=== PATIENT | female | born 1940 | race Caucasian/White ===

== ENCOUNTER 2017-12-03 18:31 | Emergency (ER) | payer MEDICARE, SELFPAY ==
[2017-12-03] VITALS (10 sets, daily range): BP systolic 118–166; BP diastolic 60–72; PULSE 80–86; RESP 18–25; TEMP 37.6; O2SAT 93–99
--- NOTE | 2017-12-03 18:58 | DI.RAD.S_ITS ---
PROCEDURE: XR CHEST 2V INDICATIONS: Shortness of breath, cough TECHNIQUE: 2 views of the chest were acquired. COMPARISON: None. FINDINGS: Surgical changes and devices: None. Lungs and pleura: No pleural effusions or pneumothorax. Mildly increased local vascular markings and bilateral hilar region is seen which may indicate mild reactive airway disease such as bronchitis or asthma. No definite focal infiltrate. Mediastinum: Mediastinal contours are normal. Heart size is normal. Bones and chest wall: No suspicious bony abnormalities. Soft tissues appear unremarkable. IMPRESSION: Suggestion of mild reactive airway disease such as bronchitis or asthma. No definite focal infiltrate. Dictated by: Cm Albert M.D. on 12/03/2017 at 19:22 Approved by: Cm Albert M.D. on 12/03/2017 at 19:22
[2017-12-03 19:28] LABS: Add Manual Diff / Slide Review NO; Basophils Percent Auto 0.6 % (0-2); Eosinophils Percent Auto 3.6 % (2-4); Hematocrit 40.5 % (36-46); Hemoglobin 13.6 g/dL (12.0-16.0); Lymphocytes Percent Auto 18.3 % (25-40); Mean Corpuscular HGB Conc 33.6 % (30-36); Mean Corpuscular Hemoglobin 30.6 PG (26-34); Mean Corpuscular Volume 91.3 fL (80-100); Monocytes Percent Auto 9.3 % (3-14); Neutrophils Absolute Auto 6400 /uL (3000-5900); Neutrophils Percent Auto 68.2 % (50-75); Platelet Count 236 X10^3/uL (150-400); Red Blood Cell Count 4.43 X10^6/uL (4.0-5.2); Red Cell Distribution Width 13.1 % (11.6-14.8); White Blood Cell Count 9.4 X10^3/uL (4.5-11.0)
[2017-12-03] MEDS: methylPREDNISolone 125 MG/2 ML VIAL IV (19:29)
[2017-12-03] MEDS: SODIUM CHLORIDE 0.9% 1,000 ML 150 ML IV (19:30)
[2017-12-03] MEDS: ALBUTEROL/IPRATROPIUM 3 ML AMPUL INH (19:34)
--- NOTE | 2017-12-03 19:36 | ED_ITS ---
HPI - SOB/Dyspnea General Chief Complaint: Shortness of Breath/Dyspnea Stated Complaint: HARD TIME BREATHING THROAT HURTS EAR PAIN Time Seen by Provider: 12/03/17 18:48 Source: patient and family Mode of arrival: ambulatory Limitations: no limitations History of Present Illness 77-year-old female with a history of hypertension and type 2 diabetes presents to the emergency department with her in the chief complaint of a few days of worsening shortness of breath. She denies any history of lung trouble but states that over the past few days she has had increasing wheezing and cough which is occasionally productive of sputum. She is more short of breath with conversation and certainly with any exertion. She denies fever or chills but generally does not feel great. She has had no nausea, vomiting or diarrhea. Patient was seen and evaluated at the walk-in clinic and showed some signs of improvement with bronchodilators MD Complaint: shortness of breath and cough Onset (ago): day(s) Severity: moderate Consistency/Duration: constant Relieving factors: rest Exacerbating factors: exertion, movement, coughing and smoke Associated symptoms: denies other symptoms Treatment prior to arrival: none Related Data Home oxygen amount: none Home Medications Medication Instructions Recorded Confirmed amlodipine 2.5 mg tablet 2.5 mg PO DAILY 12/03/17 12/03/17 hydrochlorothiazide 12.5 mg tablet 12.5 mg PO DAILY 12/03/17 12/03/17 liraglutide 0.6 mg/0.1 mL (18 mg/3 0.6 mg SUBCUT DAILY 12/03/17 12/03/17 mL) subcutaneous pen injector losartan 25 mg tablet 25 mg PO DAILY 12/03/17 12/03/17 metformin 500 mg tablet 500 mg PO BID 12/03/17 12/03/17 Previous Rx's Medication Instructions Recorded azithromycin See Label Instructions .ROUTE 12/03/17 .COMPLEX #3 tab prednisone 20 mg PO BID 4 Days #8 tab 12/03/17 Allergies Allergy/AdvReac Type Severity Reaction Status Date / Time Opioids - Morphine Analogues Allergy Verified 12/03/17 18:44 Review of Systems Review of Systems All systems reviewed & are unremarkable except as noted in HPI and below Constitutional Denies chills, Reports fever(s), Denies lethargy and Denies weakness Eyes Denies change in vision, Denies eye discharge, Denies irritation and Denies loss of vision ENT Ears, Nose, Mouth, and Throat: Denies change in voice, Denies neck pain and Denies sore throat Cardiovascular Denies chest pain, Denies irregular heart rhythm, Denies lightheadedness, Denies palpitations, Reports dyspnea, Reports dyspnea on exertion and Denies orthopnea Respiratory Reports cough, Reports dyspnea, Reports dyspnea on exertion and Reports wheezing Gastrointestinal Gastrointestinal: Denies abdominal pain, Denies change in bowel habits, Denies diarrhea, Denies nausea and Denies vomiting Genitourinary Denies hematuria, Denies flank pain, Denies urinary incontinence and Denies urinary urgency Musculoskeletal Denies neck pain Integumentary/Breasts Denies pruritus, Denies erythema, Denies rash and Denies wounds Neurologic Denies confusion, Denies loss of vision and Denies weakness Psychiatric Denies anxiety, Denies confusion, Denies depression, Denies homicidal ideation and Denies suicidal ideation Endocrine Denies palpitations Hematologic/Lymphatic Denies easy bruising Allergic/Immunologic Reports wheezing [facility] Social History Smoking Status: Never smoker alcohol intake: never Exam Narrative Exam Narrative: 77-year-old female is in distress and demonstrates increasing shortness of breath with conversation or exertion Initial Vital Signs Initial Vital Signs: Vital Signs Temperature 99.7 F H 12/03/17 18:40 Pulse Rate 86 12/03/17 18:40 Respiratory Rate 22 12/03/17 18:40 Blood Pressure 135/72 H 12/03/17 18:40 Pulse Oximetry 97 12/03/17 18:40 Const General: cooperative, well developed and acute distress Nutritional Appearance: well nourished Orientation: alert, awake, oriented x3 and not confused [facility] Head: normocephalic and atraumatic Ears: external ears normal and TM's normal bilaterally Nose: external nose normal and No nasal discharge Face and sinus: sinuses nontender, face symmetric, no sinus tenderness and No dry mucous membranes Mouth: oral mucosae normal and moist mucous membranes Teeth and gingiva: dentition normal Throat: tonsils normal and uvula midline Eyes General: appearance normal, both eyes and all related structures Eyelids: eyelids normal Conjunctivae: conjunctivae normal Sclera: sclerae normal Pupils: PERRL EOM: EOM intact bilaterally Neck Neck: normal visual inspection, trachea midline, No lymphadenopathy, No midline deformity and No JVD Lymphatic: No lymphedema Chest Chest: normal inspection of the chest Resp Effort & Inspection: audible wheezes, respiratory distress, no use of accessory muscles and prolonged expiratory phase Auscultation: no rales, no rhonchi and wheezes Cardio Rate: regular rate Rhythm: regular rhythm Heart Sounds: no click, no gallops, no murmurs and no rubs Pulses: normal peripheral pulses GI Inspection: non-distended Palpation: soft, no hepatosplenomegaly, No guarding, No pulsatile mass and No tender Auscultation: normal bowel sounds Back/Spine/Pelvis Back: No CVA tenderness Cervical Spine: cervical ROM normal and No pain with cervical ROM Thoracic/Lumbar Spine: thoracic and lumbar spine normal to inspection Skin General: no rashes or lesions noted, No jaundice and No petechiae Neuro General: alert, oriented x3, gait normal and no focal motor deficits Speech: speech normal Extrem General: full ROM, no clubbing, cyanosis or edema, no pedal edema and no calf tenderness Psych Appearance: well kempt Mental Status: mental status grossly normal Attitude: cooperative Thought Content: normal and suicidality Judgment: judgment good Course Orders Ordered: Discontinued Medications Albuterol (Ventolin Hfa Prepack) 1 box MISC SEEINSTR ONE Stop: 12/03/17 22:25 Last Admin: 12/03/17 22:41 Dose: 1 box Albuterol/Ipratropium (Duoneb) 3 ml INH NOW ONE Stop: 12/03/17 18:56 Last Admin: 12/03/17 19:34 Dose: 3 ml Azithromycin (Zithromax) 500 mg PO NOW ONE Stop: 12/03/17 22:25 Last Admin: 12/03/17 22:37 Dose: 500 mg Sodium Chloride (Normal Saline 0.9%) 1,000 mls @ 150 mls/hr IV CONT GUILLERMINA Last Infusion: 12/03/17 22:32 Dose: 0 mls/hr Admin: 12/03/17 19:30 Dose: 150 mls/hr Methylprednisolone (Solu-Medrol 125 Mg Vial) 125 mg IV NOW ONE Stop: 12/03/17 18:56 Last Admin: 12/03/17 19:29 Dose: 125 mg Reevaluation(s) Reevaluation #1: Patient shows tremendous improvement with bronchodilators and steroids. In the and the patient is no longer hypoxic even on room air and is able to to and ambulation trial while maintaining a pulse ox 96% Vital Signs - 8 hr 12/03/17 22:50 12/03/17 23:00 12/03/17 23:05 Pulse Rate 83 83 Respiratory Rate 19 19 Blood Pressure 119/60 Blood Pressure [Left Arm] 119/60 Pulse Oximetry 95 96 96 MDM - SOB/Dyspnea Differential Diagnosis Likely acute exacerbation of chronic obstructive airways disease, congestive heart failure, community acquired pneumonia, asthma with exacerbation and pulmonary embolism Medical Records Attestation: I reviewed the patient's medical records. Lab Data Attestation: I reviewed the patient's lab results. Result diagrams: 12/03/17 19:18 12/03/17 19:18 Lab Results 12/03/17 12/03/17 12/03/17 Range/Units 19:18 19:18 19:18 WBC 9.4 (4.5-11.0) X10^3/uL RBC 4.43 (4.0-5.2) X10^6/uL Hgb 13.6 (12.0-16.0) g/dL Hct 40.5 (36-46) % MCV 91.3 (80-100) fL MCH 30.6 (26-34) PG MCHC 33.6 (30-36) % RDW 13.1 (11.6-14.8) % Plt Count 236 (150-400) X10^3/uL Neut % (Auto) 68.2 (50-75) % Lymph % (Auto) 18.3 L (25-40) % [place] % (Auto) 9.3 (3-14) % Eos % (Auto) 3.6 (2-4) % Baso % (Auto) 0.6 (0-2) % Neut # (Auto) 6400 H (9956-6551) /uL ABG pH (7.35-7.45) ABG pCO2 (35-45) mmHg ABG pO2 (80-105) mmHg ABG HCO3 (23-27) mmol/L ABG Total CO2 (23-27) mmol/L ABG O2 Saturation (95-100) % ABG Base Excess (-2-3) mmol/L Cord ABG pH (7.18-7.38) Cord ABG pCO2 (33-66) Cord ABG pO2 (6-30) Cord ABG HCO3 Cord ABG Base Excess (-9.0-1.8) Cord ABG O2 Sat Cord VBG pH (7.25-7.45) Cord VBG pCO2 (27-49) Cord VBG pO2 (17-49) Cord VBG HCO3 Cord VBG Base Excess (-7.7-1.9) Cord VBG O2 Sat FiO2 Sodium 142 (137-145) mmol/L Potassium 3.4 (3.4-5.1) mmol/L Chloride 101 (98-107) mmol/L Carbon Dioxide 27 (22-32) mmol/L BUN 29 H (7-17) mg/dL Creatinine 1.00 (0.52-1.04) mg/dL Estimated GFR 54.1 L (>60) mL/min BUN/Creatinine Ratio 29.0 H (6-22) Glucose 177 H (80-110) mg/dL Lactate (0.7-2.1) mmol/L Calcium 9.5 (8.4-10.2) mg/dL Magnesium 1.9 (1.6-2.3) mg/dL Total Creatine Kinase 94 (30-135) U/L Troponin I < 0.012 (0.01-0.034) ng/mL B-Natriuretic Peptide < 100.0 (<100) Procalcitonin < 0.05 (<0.5) ng/mL 12/03/17 12/03/17 12/03/17 Range/Units 19:18 20:20 20:25 WBC (4.5-11.0) X10^3/uL RBC (4.0-5.2) X10^6/uL Hgb (12.0-16.0) g/dL Hct (36-46) % MCV (80-100) fL MCH (26-34) PG MCHC (30-36) % RDW (11.6-14.8) % Plt Count (150-400) X10^3/uL Neut % (Auto) (50-75) % Lymph % (Auto) (25-40) % [place] % (Auto) (3-14) % Eos % (Auto) (2-4) % Baso % (Auto) (0-2) % Neut # (Auto) (8327-2965) /uL ABG pH (7.35-7.45) ABG pCO2 (35-45) mmHg ABG pO2 (80-105) mmHg ABG HCO3 (23-27) mmol/L ABG Total CO2 (23-27) mmol/L ABG O2 Saturation (95-100) % ABG Base Excess (-2-3) mmol/L Cord ABG pH 7.231 (7.18-7.38) Cord ABG pCO2 52.3 (33-66) Cord ABG pO2 8 (6-30) Cord ABG HCO3 21.9 Cord ABG Base Excess -6 (-9.0-1.8) Cord ABG O2 Sat 6 Cord VBG pH 7.344 (7.25-7.45) Cord VBG pCO2 36.6 (27-49) Cord VBG pO2 25 (17-49) Cord VBG HCO3 19.9 Cord VBG Base Excess -6 (-7.7-1.9) Cord VBG O2 Sat 43 FiO2 Sodium (137-145) mmol/L Potassium (3.4-5.1) mmol/L Chloride (98-107) mmol/L Carbon Dioxide (22-32) mmol/L BUN (7-17) mg/dL Creatinine (0.52-1.04) mg/dL Estimated GFR (>60) mL/min BUN/Creatinine Ratio (6-22) Glucose (80-110) mg/dL Lactate 1.7 (0.7-2.1) mmol/L Calcium (8.4-10.2) mg/dL Magnesium (1.6-2.3) mg/dL Total Creatine Kinase (30-135) U/L Troponin I (0.01-0.034) ng/mL B-Natriuretic Peptide (<100) Procalcitonin (<0.5) ng/mL 12/03/17 Range/Units 21:00 WBC (4.5-11.0) X10^3/uL RBC (4.0-5.2) X10^6/uL Hgb (12.0-16.0) g/dL Hct (36-46) % MCV (80-100) fL MCH (26-34) PG MCHC (30-36) % RDW (11.6-14.8) % Plt Count (150-400) X10^3/uL Neut % (Auto) (50-75) % Lymph % (Auto) (25-40) % [place] % (Auto) (3-14) % Eos % (Auto) (2-4) % Baso % (Auto) (0-2) % Neut # (Auto) (4216-6594) /uL ABG pH 7.49 H (7.35-7.45) ABG pCO2 31.9 L (35-45) mmHg ABG pO2 67 L (80-105) mmHg ABG HCO3 24 (23-27) mmol/L ABG Total CO2 25 (23-27) mmol/L ABG O2 Saturation 95 (95-100) % ABG Base Excess 1.0 (-2-3) mmol/L Cord ABG pH (7.18-7.38) Cord ABG pCO2 (33-66) Cord ABG pO2 (6-30) Cord ABG HCO3 Cord ABG Base Excess (-9.0-1.8) Cord ABG O2 Sat Cord VBG pH (7.25-7.45) Cord VBG pCO2 (27-49) Cord VBG pO2 (17-49) Cord VBG HCO3 Cord VBG Base Excess (-7.7-1.9) Cord VBG O2 Sat FiO2 0.21 Sodium (137-145) mmol/L Potassium (3.4-5.1) mmol/L Chloride (98-107) mmol/L Carbon Dioxide (22-32) mmol/L BUN (7-17) mg/dL Creatinine (0.52-1.04) mg/dL Estimated GFR (>60) mL/min BUN/Creatinine Ratio (6-22) Glucose (80-110) mg/dL Lactate (0.7-2.1) mmol/L Calcium (8.4-10.2) mg/dL Magnesium (1.6-2.3) mg/dL Total Creatine Kinase (30-135) U/L Troponin I (0.01-0.034) ng/mL B-Natriuretic Peptide (<100) Procalcitonin (<0.5) ng/mL Imaging Data CT scan - chest: Radiologist's impression: PROCEDURE: CT ANGIO CHEST PE PROTOCOL INDICATIONS: hypoxic, tachycardia TECHNIQUE: After the administration of intravenous contrast, 2 mm thick sections acquired from the pulmonary apices to the posterior costophrenic angles. 3-dimensional maximum intensity projection (MIP) coronal and sagittal reformats were then acquired through the thorax. For radiation dose reduction, the following was used: automated exposure control, adjustment of mA and/or kV according to patient size. COMPARISON: None. FINDINGS: Image quality: Excellent. Pulmonary arteries: Pulmonary arteries are normal in size, and demonstrate no intraluminal filling defects to suggest central pulmonary embolism. Lungs and pleura: Mild scarring/atelectasis are seen scattered in the periphery of bilateral lung bases. Bilateral lungs are otherwise clear. No pleural effusions or pneumothorax. Central and peripheral airways are patent. Mediastinum: Heart size is normal, without pericardial effusion. Mildly enlarged mediastinal lymph nodes are seen measures up to 1.1 cm in short axis diameter in subcarinal space and 9 mm in short axis diameter in the precarinal space. Thoracic aorta is normal in caliber and enhancement. Esophagus is normal in caliber. Small hiatal hernia is seen. Bones and chest wall: No suspicious bony lesions. Ribs and thoracic spine appear intact throughout. Thyroid gland is within normal limits. Borderline enlarged lymph nodes are seen in left hilar region measures up to 1 cm in short axis diameter. No supraclavicular adenopathy. Degenerative disc disease throughout thoracic spine is seen with mild kyphosis. No gross acute osseous abnormality. Abdomen: Visualized upper abdominal solid organs appear normal in the early arterial phase of enhancement. IMPRESSION: 1. No evidence of pulmonary emboli. No thoracic aortic aneurysm or gross dissection. 2. Nonspecific borderline enlarged mediastinal and left axillary lymph nodes. 3. Bibasilar scarring/atelectasis. Bilateral lungs are otherwise clear. Dictated by: Cm Albert M.D. on 12/03/2017 at 21:57 MDM Narrative Medical decision making narrative: Patient presented initially with evidence of respiratory distress but improved tremendously with bronchodilators and steroids. Her ABG demonstrated low p.o. to on room air but is with normal labs and imaging this is unlikely to be PE, all large pneumonia or other Discharge Plan Departure Patient Disposition: Home Clinical Impression: Bronchitis, Acute bronchiolitis with bronchospasm Discharge Date/Time: 12/03/17 23:05 Interventions: ED Discharge Assessment Last Done: 12/03/17 23:05 Instructions: Acute Bronchitis Activity Restrictions/Additional Instructions: *You have been diagnosed with [ acute bronchitis with bronchospasm ] *What to do: *Take medications as directed: Your prescriptions have been electronically transmitted to the [email or web address] based on your prior preferences *Follow up with your primary care provider in 2-3 days, call for an appointment. Let them know you were seen in the Emergency Department and that we ask that you be seen in follow up *Return to ER if you should have any new, worsening or concerning symptoms Prescriptions: New prednisone 20 mg tablet 20 mg PO BID 4 Days Qty: 8 RF: 0 azithromycin 500 mg tablet See Label Instructions .ROUTE .COMPLEX Qty: 3 RF: 0 No Action metformin 500 mg tablet 500 mg PO BID RF: 0 amlodipine 2.5 mg tablet 2.5 mg PO DAILY RF: 0 losartan 25 mg tablet 25 mg PO DAILY RF: 0 hydrochlorothiazide 12.5 mg tablet 12.5 mg PO DAILY RF: 0 liraglutide [Victoza 3-Balbir] 0.6 mg/0.1 mL (18 mg/3 mL) pen injector 0.6 mg SUBCUT DAILY RF: 0
[2017-12-03 19:42] LABS: Blood Urea Nitrogen 29 mg/dL (7-17); Calcium 9.5 mg/dL (8.4-10.2); Carbon Dioxide 27 mmol/L (22-32); Chloride 101 mmol/L (98-107); Creatine Kinase 94 U/L (30-135); Estimated Glomerular Filt Rate 54.1 mL/min (>60); Glucose 177 mg/dL (80-110); HEMOLYSIS < 15 (0-50); Lactate (Lactic Acid) 1.7 mmol/L (0.7-2.1); Magnesium 1.9 mg/dL (1.6-2.3); Potassium 3.4 mmol/L (3.4-5.1); Sodium 142 mmol/L (137-145)
[2017-12-03 19:56] LABS: Troponin I < 0.012 ng/mL (0.01-0.034)
[2017-12-03 19:58] LABS: Procalcitonin < 0.05 ng/mL (<0.5)
[2017-12-03 19:59] LABS: B Type Natriuretic Peptide < 100.0 (<100)
--- NOTE | 2017-12-03 21:29 | DI.CT.S_ITS ---
PROCEDURE: CT ANGIO CHEST PE PROTOCOL INDICATIONS: hypoxic, tachycardia TECHNIQUE: After the administration of intravenous contrast, 2 mm thick sections acquired from the pulmonary apices to the posterior costophrenic angles. 3-dimensional maximum intensity projection (MIP) coronal and sagittal reformats were then acquired through the thorax. For radiation dose reduction, the following was used: automated exposure control, adjustment of mA and/or kV according to patient size. COMPARISON: None. FINDINGS: Image quality: Excellent. Pulmonary arteries: Pulmonary arteries are normal in size, and demonstrate no intraluminal filling defects to suggest central pulmonary embolism. Lungs and pleura: Mild scarring/atelectasis are seen scattered in the periphery of bilateral lung bases. Bilateral lungs are otherwise clear. No pleural effusions or pneumothorax. Central and peripheral airways are patent. Mediastinum: Heart size is normal, without pericardial effusion. Mildly enlarged mediastinal lymph nodes are seen measures up to 1.1 cm in short axis diameter in subcarinal space and 9 mm in short axis diameter in the precarinal space. Thoracic aorta is normal in caliber and enhancement. Esophagus is normal in caliber. Small hiatal hernia is seen. Bones and chest wall: No suspicious bony lesions. Ribs and thoracic spine appear intact throughout. Thyroid gland is within normal limits. Borderline enlarged lymph nodes are seen in left hilar region measures up to 1 cm in short axis diameter. No supraclavicular adenopathy. Degenerative disc disease throughout thoracic spine is seen with mild kyphosis. No gross acute osseous abnormality. Abdomen: Visualized upper abdominal solid organs appear normal in the early arterial phase of enhancement. IMPRESSION: 1. No evidence of pulmonary emboli. No thoracic aortic aneurysm or gross dissection. 2. Nonspecific borderline enlarged mediastinal and left axillary lymph nodes. 3. Bibasilar scarring/atelectasis. Bilateral lungs are otherwise clear. Dictated by: Cm Albert M.D. on 12/03/2017 at 21:57 Approved by: Cm Albert M.D. on 12/03/2017 at 22:01
[2017-12-03] MEDS: AZITHROMYCIN 250 MG TABLET 500 MG PO (22:37)
[2017-12-03] MEDS: ALBUTEROL HFA PREPACK 1 BOX MISC (22:41)
--- NOTE | 2017-12-03 22:57 | PC.NURSE ---
2220 Ambulationt rial performed by Reggie Armstrong CNA. 96% while walking on room air. Walked around hallway and back to room. Reports some fatigue but decrease in shortness of breath from earlier.
[2017-12-23 16:58] LABS: HCO3 ABG 24 mmol/L (23-27); Oxygen Saturation ABG 95 % (95-100); PCO2 ABG 31.9 mmHg (35-45); PO2 ABG 67 mmHg (80-105); TCO2 ABG 25 mmol/L (23-27); pH ABG 7.49 (7.35-7.45)
[2017-12-23 16:59] LABS: Fractionated Inspired Oxygen 0.21
== END 2017-12-03 23:05 | disposition home or self-care (01) ==
PROVIDERS: Emergency Provider Emergency Medicine
DX: J21.9 Acute bronchiolitis, unspecified (principal); J40 Bronchitis, not specified as acute or chronic
CPT/HCPCS: 36415; 36591; 36600; 71046; 71275; 80048; 82550; 82553; 82803; 82805; 82962; 83605; 83735; 83880; 84145; 84484; 85025; 87040; 93005; 93010; 96361; 96374; 99284; 99285; J2930; Q9967

== ENCOUNTER 2018-02-27 14:16 | Emergency (ER) | payer MEDICARE, SELFPAY ==
[2018-02-27 14:24] VITALS: BP 135/77; PULSE 76; RESP 18; O2SAT 97
--- NOTE | 2018-02-27 15:37 | DI.RAD.S_ITS ---
PROCEDURE: XR LUMBAR SPINE 2-3V INDICATIONS: SI/lumbar pain, h/o fusion TECHNIQUE: 2 views of the lumbar spine were acquired. COMPARISON: None. FINDINGS: Bones: 5 [id number] vertebrae are present. There is normal bony alignment. No vertebral body compression fractures. No suspicious bony lesions. There has been prior L4-S1 posterior fusion, with bone graft added to the lateral masses of the lower lumbosacral spine abutting the upper border of the sacrum bilaterally. Bilateral partially visualized femoral arthroplasties show no evidence of device loosening or disruption. Soft tissues: Overlying bowel gas pattern is normal. No suspicious soft tissue calcifications. IMPRESSION: Prior lumbosacral spine fusion procedures, no acute disease. There is a moderate to moderately severe degree of degenerative disc disease along the thoracolumbar junction and upper lumbar spine above the area of fusion. Hip arthroplasties are partially visualized and free of disruption. Dictated by: Reyes Hernandez M.D. on 02/27/2018 at 15:54 Approved by: Reyes Hernandez M.D. on 02/27/2018 at 15:56
--- NOTE | 2018-02-27 15:37 | DI.RAD.S_ITS ---
PROCEDURE: XR HIP W PEL IF DONE LT 2V INDICATIONS: posterior/lateral pain TECHNIQUE: AP pelvis with lateral view(s) of the left hip. COMPARISON: None. 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 Pelvic ring appears intact. No suspicious bony lesions. Soft tissues: The visualized bowel gas pattern is normal. No suspicious soft tissue calcifications. IMPRESSION: No trauma found, orthopedic fixation devices and bilateral hip arthroplasties appear free of device loosening or disruption. A source of reported posterolateral left hip region pain is not found. Dictated by: Reyes Hernandez M.D. on 02/27/2018 at 15:52 Approved by: Reyes Hernandez M.D. on 02/27/2018 at 15:54
--- NOTE | 2018-02-27 15:45 | ED_ITS ---
HPI - Skin/Abscess/Foreign Bdy <Xi Corea PA-C - Last Filed: 02/27/18 20:54> General Chief complaint: Back Pain/Injury Stated complaint: bumps on legs/arms x7 days Time Seen by Provider: 02/27/18 14:57 Source: patient Mode of arrival: ambulatory Limitations: no limitations History of Present Illness HPI narrative: This 77-year-old female comes to ED today mainly due to ongoing itchy rash for about a week. She states this looked like a little bites on her arms and legs only. The rash has not spread since it started, but the bumps have not gone away. She states [id number] hydrocortisone has helped slightly but still finds herself scratching persistently. She states that she feels like her rosacea symptoms worsened a little bit with the bumps on her arms and legs. She denies any dyspnea, wheeze, facial swelling with this. She denies using any new soaps, lotions, detergents, etc and no known exposures. She states that she also has been treated for ongoing right-sided back and knee pain since a couple of weeks ago. She was put on indomethacin and had been taking ibuprofen prior to that (states that she had renal dysfunction related to NSAIDs in the past). She states that she does not think rash was related to this as he stops indomethacin for 4 days and rash did not change. She is off of that now and states that her initial back and knee pain have improved significantly however for the last 2-3 days she has had pain now in her left low back and gluteal area that are worse with walking, better lying on left side. She states that it is difficult to walk and bend secondary to pain. She denies any weakness or numbness in the groin or extremities. She denies any difficulty urinating. She states she had constipation when on indomethacin, but that has resolved. Related Data Home Medications Medication Instructions Recorded Confirmed amlodipine 2.5 mg tablet 2.5 mg PO DAILY 12/03/17 12/03/17 hydrochlorothiazide 12.5 mg tablet 12.5 mg PO DAILY 12/03/17 12/03/17 liraglutide 0.6 mg/0.1 mL (18 mg/3 0.6 mg SUBCUT DAILY 12/03/17 12/03/17 mL) subcutaneous pen injector losartan 25 mg tablet 25 mg PO DAILY 12/03/17 12/03/17 metformin 500 mg tablet 500 mg PO BID 12/03/17 12/03/17 Previous Rx's Medication Instructions Recorded tramadol 50 mg PO Q6H PRN #10 tab 02/27/18 triamcinolone acetonide 1 applictn TOP BID #60 gram 02/27/18 Allergies Allergy/AdvReac Type Severity Reaction Status Date / Time Opioids - Morphine Analogues Allergy Verified 01/09/18 13:48 Review of Systems <Xi Corea PA-C - Last Filed: 02/27/18 20:54> Review of Systems All systems reviewed & are unremarkable except as noted in HPI and below Exam <Xi Corea PA-C - Last Filed: 02/27/18 20:54> Narrative Exam Narrative: GENERAL APPEARANCE: Patient lying on left side comfortably, in no distress. PULMONARY: Lungs clear to auscultation bilaterally CV: Regular rhythm regular without murmur, normal S1 and S2, no S3 or S4 MUSCULOSKELETAL: Tender over the mid to inferior lumbar and sacral spine, more tender over the left SI joint. She requires assistance to move from sit to stand. She has reduced trunk flexion secondary to tenderness. Lower extremity strength 5/5 bilateral hip flexors, knee extensors, foot plantar flexion. Negative modified straight leg raise NEUROLOGIC: Bilateral patellar and Achilles DTRs 1+, sensation in the lower extremities is grossly intact DERMATOLOGIC: There are scattered dry, pink papules on the upper and lower extremities, sparing the feet and hands, both surfaces, no particular distribution. No papules or pustules. No exanthem on the face or trunk Initial Vital Signs Initial Vital Signs: Vital Signs Pulse Rate 76 02/27/18 14:24 Respiratory Rate 18 02/27/18 14:24 Blood Pressure 135/77 02/27/18 14:24 Pulse Oximetry 97 02/27/18 14:24 <Oneida Orona MD - Last Filed: 02/28/18 08:03> Initial Vital Signs Initial Vital Signs: Vital Signs Pulse Rate 76 02/27/18 14:24 Respiratory Rate 18 02/27/18 14:24 Blood Pressure 135/77 02/27/18 14:24 Pulse Oximetry 97 02/27/18 14:24 Course <Xi Corea PA-C - Last Filed: 02/27/18 20:54> Additional Information: Patient was able to ambulate normally with walker prior to discharge. She does have a history of lumbar spine surgery and was seeing a support services specialist for injections in [place]. Will talk with her PCP about a referral for this. Orders Ordered: ED Orders 02/27/18 15:37 XR hip w pel if done LT 2V Stat XR lumbar spine 2-3V Stat Vital Signs - 8 hr 02/27/18 14:24 02/27/18 17:12 Pulse Rate 76 73 Respiratory Rate 18 18 Blood Pressure 135/77 153/86 H Pulse Oximetry 97 97 <Oneida Orona MD - Last Filed: 02/28/18 08:03> Orders Ordered: ED Orders 02/27/18 15:37 XR hip w pel if done LT 2V Stat XR lumbar spine 2-3V Stat Vital Signs - 8 hr 02/27/18 14:24 02/27/18 17:12 Pulse Rate 76 73 Respiratory Rate 18 18 Blood Pressure 135/77 153/86 H Pulse Oximetry 97 97 Discharge Plan Departure Patient Disposition: Home Clinical Impression: Sacroiliac joint dysfunction of left side, Degenerative disc disease, [place]hem Discharge Date/Time: 02/27/18 17:14 Interventions: ED Discharge Assessment Last Done: 02/27/18 17:12 Instructions: DI for Low Back Pain, DI Sacroiliac Joint Dysfunction, DI for Degenerative Disc Disease Activity Restrictions/Additional Instructions: No acute problem was found on your x-rays today, but you do have a lot of wear and tear, degenerative disc disease in your back you may need a referral to physical therapy or to a back specialist since you had been getting injections in the past. Please call your PCP office 1st thing in the morning and arrange follow-up in the next couple of days. Please return if you have any acutely worsening symptoms, or new symptoms such as numbness or weakness in your legs or difficulty urinating. Please try taking Tylenol arthritis or 8 hr, 650 mg, 1 tablet every 8 hr for pain. This sometimes works better than regular Tylenol at a lower dose since it is longer-acting. You can try adding the prescription pain reliever tramadol as these worked nicely together and may not cause you to feel foggy as other pain medicines have. You can start with 1/2 pill to see how you react. Do not drive until you are sure it does not make you sleepy. Use your walker! For your rash, please picker tender some cetirizine (Zyrtec) 10 mg, and take 1-2 times daily to help with itching. Start using the new steroid cream today. Avoid scratching the area as that will make the itching worse. Apply a cold pack instead when you feel itching. Return if you get new symptoms with this such as facial swelling or difficulty breathing or swallowing. Otherwise recheck with your PCP at follow-up Prescriptions: New tramadol 50 mg tablet 50 mg PO Q6H PRN (Reason: acute back/hip pain) Qty: 10 RF: 0 triamcinolone acetonide 0.1 % cream 1 applictn TOP BID Qty: 60 RF: 0 No Action metformin 500 mg tablet 500 mg PO BID RF: 0 amlodipine 2.5 mg tablet 2.5 mg PO DAILY RF: 0 losartan 25 mg tablet 25 mg PO DAILY RF: 0 hydrochlorothiazide 12.5 mg tablet 12.5 mg PO DAILY RF: 0 liraglutide [Victoza 3-Balbir] 0.6 mg/0.1 mL (18 mg/3 mL) pen injector 0.6 mg SUBCUT DAILY RF: 0 Referrals: Riley Grimes MD [Physician] -
[2018-02-27 17:12] VITALS: BP 153/86; PULSE 73; RESP 18; O2SAT 97
== END 2018-02-27 17:14 | disposition home or self-care (01) ==
PROVIDERS: Emergency Provider Internal Medicine
DX: M53.3 Sacrococcygeal disorders, not elsewhere classified (principal); M51.37 Other intervertebral disc degeneration, lumbosacral region; R21 Rash and other nonspecific skin eruption
CPT/HCPCS: 72100; 73502; 99282; 99283

== ENCOUNTER 2018-04-05 15:31 | Emergency (ER) | payer MEDICARE, SELFPAY ==
[2018-04-05 15:41] VITALS: BP 143/79; PULSE 85; RESP 18; TEMP 36.7; O2SAT 97; BMI 30.1
--- NOTE | 2018-04-05 15:48 | DI.RAD.S_ITS ---
PROCEDURE: XR CHEST 1V INDICATIONS: chest pain TECHNIQUE: One view of the chest was acquired. COMPARISON: [facility], CR, XR CHEST 2V, 12/03/2017, 18:35. FINDINGS: Surgical changes and devices: None. Lungs and pleura: No pleural effusions or pneumothorax. Lungs are clear. Mediastinum: Mediastinal contours appear normal. Heart size is enlarged. Bones and chest wall: No suspicious bony lesions. Overlying soft tissues appear unremarkable. IMPRESSION: No acute cardiopulmonary pathology. Dictated by: Cm Albert M.D. on 04/05/2018 at 16:31 Approved by: Cm Albert M.D. on 04/05/2018 at 16:31
[2018-04-05] MEDS: SODIUM CHLORIDE 0.9% 1,000 ML 150 ML IV (16:04)
[2018-04-05] MEDS: PANTOPRAZOLE 40 MG VIAL IV (16:04)
[2018-04-05 16:10] LABS: INR 0.9 (0.9-1.3); Prothrombin Time 10.4 SECONDS (10.1-12.7)
[2018-04-05 16:11] LABS: Add Manual Diff / Slide Review NO; Basophils Percent Auto 0.5 % (0-2); Eosinophils Percent Auto 3.4 % (2-4); Hematocrit 41.9 % (36-46); Hemoglobin 14.2 g/dL (12.0-16.0); Lymphocytes Percent Auto 23.8 % (25-40); Mean Corpuscular HGB Conc 33.9 % (30-36); Mean Corpuscular Hemoglobin 30.5 PG (26-34); Mean Corpuscular Volume 89.9 fL (80-100); Monocytes Percent Auto 8.8 % (3-14); Neutrophils Absolute Auto 6200 /uL (1500-7000); Neutrophils Percent Auto 63.5 % (50-75); Platelet Count 262 X10^3/uL (150-400); Red Blood Cell Count 4.66 X10^6/uL (4.0-5.2); Red Cell Distribution Width 13.4 % (11.6-14.8); White Blood Cell Count 9.8 X10^3/uL (4.5-11.0)
[2018-04-05 16:12] LABS: PTT Partial Thromboplastin Tim 27 SECONDS (26.4-36.2)
[2018-04-05 16:14] LABS: Alanine Aminotransferase 45 IU/L (9-52); Albumin 4.6 g/dL (3.5-5.0); Albumin Globulin Ratio 1.5 (1.0-2.8); Alkaline Phosphatase 93 U/L (38-126); Aspartate Aminotransferase 29 IU/L (14-36); Bilirubin Total 0.6 mg/dL (0.2-1.3); Blood Urea Nitrogen 24 mg/dL (7-17); Calcium 10.1 mg/dL (8.4-10.2); Carbon Dioxide 20 mmol/L (22-32); Chloride 109 mmol/L (98-107); Creatine Kinase 69 U/L (30-135); Estimated Glomerular Filt Rate 54.1 mL/min (>60); Glucose 121 mg/dL (80-110); HEMOLYSIS < 15 (0-50); Lipase 177 U/L (23-300); Potassium 3.6 mmol/L (3.4-5.1); Sodium 147 mmol/L (137-145); Total Protein 7.6 g/dL (6.3-8.2)
--- NOTE | 2018-04-05 16:23 | ED.SOB ---
HPI - SOB/Dyspnea <SHEELA Sutherland - Last Filed: 04/05/18 18:48> General Chief Complaint: Shortness of Breath/Dyspnea Stated Complaint: SOB, trouble swallowing Time Seen by Provider: 04/05/18 15:44 Source: patient Mode of arrival: ambulatory Limitations: no limitations History of Present Illness Patient is a 75-year-old female nonsmoker with history of an esophageal stricture who presents with a chief complaint of ?my throat quit working.? She states she was eating lewis this morning and then had trouble swallowing. She states that she has vomited at least 20 times since. She complains of shortness of breath related to her daughter's construction at her home. She denies any diarrhea. She states that she is able to swallow her secretions, but they won't ?stay down.? Complains of epigastric abdominal pain. States that the chest pain as tightness related to her vomiting. Related Data Home Medications Medication Instructions Recorded Confirmed amlodipine 2.5 mg tablet 2.5 mg PO DAILY 12/03/17 12/03/17 hydrochlorothiazide 12.5 mg tablet 12.5 mg PO DAILY 12/03/17 12/03/17 liraglutide 0.6 mg/0.1 mL (18 mg/3 0.6 mg SUBCUT DAILY 12/03/17 12/03/17 mL) subcutaneous pen injector losartan 25 mg tablet 25 mg PO DAILY 12/03/17 12/03/17 metformin 500 mg tablet 500 mg PO BID 12/03/17 12/03/17 Previous Rx's Medication Instructions Recorded tramadol 50 mg PO Q6H PRN #10 tab 02/27/18 triamcinolone acetonide 1 applictn TOP BID #60 gram 02/27/18 Allergies Allergy/AdvReac Type Severity Reaction Status Date / Time Opioids - Morphine Analogues Allergy Verified 04/05/18 15:44 Review of Systems <SHEELA Sutherland - Last Filed: 04/05/18 18:48> Review of Systems GENERAL: Denies chills, fatigue, malaise, fever, sweats. HEENT: Denies sinus pain, ear pain, sore throat, difficulty swallowing, dizziness. RESPIRATORY: See HPI CARDIOVASCULAR: See HPI GASTROINTESTINAL: See HPI : Denies dysuria, frequency, incontinence, hematuria, urinary retention. MUSCULOSKELETAL: denies weakness, joint pain, or bony pain SKIN: Denies rash, skin lesions, or other NEUROLOGIC: Denies weakness, headache, numbness, change in speech, confusion, seizures, incoordination. PSYCHIATRIC: No concerning psychosocial issues. 12 point review of systems is negative except for those stated above Exam <Munira DAISY Bearden-BC - Last Filed: 04/05/18 18:48> Narrative Exam Narrative: GENERAL: This is a well-nourished, well-developed patient, in no acute distress HEAD: Atraumatic. Normocephalic. No temporal or scalp tenderness. EYES: Pupils equal round and reactive. Extraocular motions intact. No scleral icterus. No injection or drainage. ENT: Nose without bleeding, purulent drainage or septal hematoma. Throat without erythema, tonsillar hypertrophy or exudate. Uvula midline. Airway patent. Patient is managing her secretions. NECK: Trachea midline. No JVD or lymphadenopathy. Supple, nontender, no meningeal signs. CARDIOVASCULAR: Regular rate and rhythm without murmurs, gallops, or rubs. RESPIRATORY: Clear to auscultation. Breath sounds equal bilaterally. No wheezes, rales, or rhonchi. GASTROINTESTINAL: Abdomen soft,, nondistended. No hepato-splenomegaly, or palpable masses. No guarding. Epigastric pain to palpation. Active sounds all 4 quadrants. EXTREMITIES: No clubbing, cyanosis, or edema. No joint tenderness, effusion, or edema noted. BACK: Nontender without deformity or crepitance. No flank tenderness. NEURO: AOx3. SKIN: No rash or erythema. Initial Vital Signs Initial Vital Signs: Vital Signs Temperature 98.1 F 04/05/18 15:41 Pulse Rate 85 04/05/18 15:41 Respiratory Rate 18 04/05/18 15:41 Blood Pressure 143/79 H 04/05/18 15:41 Pulse Oximetry 97 04/05/18 15:41 <Amaya Reese DO - Last Filed: 04/06/18 07:39> Initial Vital Signs Initial Vital Signs: Vital Signs Temperature 98.1 F 04/05/18 15:41 Pulse Rate 85 04/05/18 15:41 Respiratory Rate 18 04/05/18 15:41 Blood Pressure 143/79 H 04/05/18 15:41 Pulse Oximetry 97 04/05/18 15:41 Course <SHEELA Sutherland - Last Filed: 04/05/18 18:48> Course Narrative: I checked on the patient several times throughout her stay in the emergency department. Orders Ordered: Discontinued Medications Sodium Chloride (Normal Saline 0.9%) 1,000 mls @ 150 mls/hr IV CONT GUILLERMINA Last Infusion: 04/05/18 18:01 Dose: 0 mls/hr Admin: 04/05/18 16:04 Dose: 150 mls/hr Pantoprazole Sodium (Protonix) 40 mg IV NOW ONE Stop: 04/05/18 15:49 Last Admin: 04/05/18 16:04 Dose: 40 mg Vital Signs - 8 hr 04/05/18 15:41 04/05/18 16:30 04/05/18 17:30 Temperature 98.1 F Pulse Rate 85 82 80 Respiratory Rate 18 16 19 Blood Pressure 143/79 H Blood Pressure [Left Arm] 129/70 148/72 H Pulse Oximetry 97 96 99 <Amaya Reese DO - Last Filed: 04/06/18 07:39> Orders Ordered: Discontinued Medications Sodium Chloride (Normal Saline 0.9%) 1,000 mls @ 150 mls/hr IV CONT GUILLERMINA Last Infusion: 04/05/18 18:01 Dose: 0 mls/hr Admin: 04/05/18 16:04 Dose: 150 mls/hr Pantoprazole Sodium (Protonix) 40 mg IV NOW ONE Stop: 04/05/18 15:49 Last Admin: 04/05/18 16:04 Dose: 40 mg Vital Signs - 8 hr 04/05/18 15:41 04/05/18 16:30 04/05/18 17:30 Temperature 98.1 F Pulse Rate 85 82 80 Respiratory Rate 18 16 19 Blood Pressure 143/79 H Blood Pressure [Left Arm] 129/70 148/72 H Pulse Oximetry 97 96 99 MDM - SOB/Dyspnea <SHEELA Sutherland - Last Filed: 04/05/18 18:48> Lab Data Result diagrams: 04/05/18 15:50 04/05/18 15:50 Lab Results 04/05/18 04/05/18 04/05/18 Range/Units 15:50 15:50 15:50 WBC 9.8 (4.5-11.0) X10^3/uL RBC 4.66 (4.0-5.2) X10^6/uL Hgb 14.2 (12.0-16.0) g/dL Hct 41.9 (36-46) % MCV 89.9 (80-100) fL MCH 30.5 (26-34) PG MCHC 33.9 (30-36) % RDW 13.4 (11.6-14.8) % Plt Count 262 (150-400) X10^3/uL Neut % (Auto) 63.5 (50-75) % Lymph % (Auto) 23.8 L (25-40) % [place] % (Auto) 8.8 (3-14) % Eos % (Auto) 3.4 (2-4) % Baso % (Auto) 0.5 (0-2) % Neut # (Auto) 6200 (5526-5969) /uL PT 10.4 (10.1-12.7) SECONDS INR 0.9 (0.9-1.3) APTT 27 (26.4-36.2) SECONDS Sodium 147 H (137-145) mmol/L Potassium 3.6 (3.4-5.1) mmol/L Chloride 109 H (98-107) mmol/L Carbon Dioxide 20 L (22-32) mmol/L BUN 24 H (7-17) mg/dL Creatinine 1.00 (0.52-1.04) mg/dL Estimated GFR 54.1 L (>60) mL/min BUN/Creatinine Ratio 24.0 H (6-22) Glucose 121 H (80-110) mg/dL Calcium 10.1 (8.4-10.2) mg/dL Total Bilirubin 0.6 (0.2-1.3) mg/dL AST 29 (14-36) IU/L ALT 45 (9-52) IU/L Alkaline Phosphatase 93 (38-126) U/L Total Creatine Kinase 69 (30-135) U/L CK-MB (CK-2) TNP CK-MB (CK-2) Rel Index TNP Troponin I < 0.012 (0.01-0.034) ng/mL B-Natriuretic Peptide < 100 (<100) Total Protein 7.6 (6.3-8.2) g/dL Albumin 4.6 (3.5-5.0) g/dL Globulin 3.0 (1.7-4.1) g/dL Albumin/Globulin Ratio 1.5 (1.0-2.8) Lipase 177 (23-300) U/L [facility] Narrative Medical decision making narrative: Patient is a 77-year-old female who presents with chief complaint of difficulty swallowing and ?my throat is not working.? She received a thorough evaluation especially given her complaints of concordant chest tightness and GERD symptoms. She was given Protonix, had a CBC, CMP and troponin. Her troponin was negative and her lab work was grossly normal. She also had a normal lipase. Despite her statement that the patient could not swallow fluids, she was managing her secretions appropriately and had a normal, intact airway. She was able to drink an entire soda and eat saltines as well. Upon this she requested to go home. I discussed that usually I would like to get a 2nd set of troponins given her previous chest tightness, but the patient declined and stated she would come back to the emergency department if needed. I discussed return precautions of chest pain, shortness of breath or inability to manage her own secretions.. I encouraged her to follow up with primary care provider. <Amaya Reese, DO - Last Filed: 04/06/18 07:39> Lab Data Lab Results 04/05/18 04/05/18 04/05/18 Range/Units 15:50 15:50 15:50 WBC 9.8 (4.5-11.0) X10^3/uL RBC 4.66 (4.0-5.2) X10^6/uL Hgb 14.2 (12.0-16.0) g/dL Hct 41.9 (36-46) % MCV 89.9 (80-100) fL MCH 30.5 (26-34) PG MCHC 33.9 (30-36) % RDW 13.4 (11.6-14.8) % Plt Count 262 (150-400) X10^3/uL Neut % (Auto) 63.5 (50-75) % Lymph % (Auto) 23.8 L (25-40) % [place] % (Auto) 8.8 (3-14) % Eos % (Auto) 3.4 (2-4) % Baso % (Auto) 0.5 (0-2) % Neut # (Auto) 6200 (3918-0465) /uL PT 10.4 (10.1-12.7) SECONDS INR 0.9 (0.9-1.3) APTT 27 (26.4-36.2) SECONDS Sodium 147 H (137-145) mmol/L Potassium 3.6 (3.4-5.1) mmol/L Chloride 109 H (98-107) mmol/L Carbon Dioxide 20 L (22-32) mmol/L BUN 24 H (7-17) mg/dL Creatinine 1.00 (0.52-1.04) mg/dL Estimated GFR 54.1 L (>60) mL/min BUN/Creatinine Ratio 24.0 H (6-22) Glucose 121 H (80-110) mg/dL Calcium 10.1 (8.4-10.2) mg/dL Total Bilirubin 0.6 (0.2-1.3) mg/dL AST 29 (14-36) IU/L ALT 45 (9-52) IU/L Alkaline Phosphatase 93 (38-126) U/L Total Creatine Kinase 69 (30-135) U/L CK-MB (CK-2) TNP CK-MB (CK-2) Rel Index TNP Troponin I < 0.012 (0.01-0.034) ng/mL B-Natriuretic Peptide < 100 (<100) Total Protein 7.6 (6.3-8.2) g/dL Albumin 4.6 (3.5-5.0) g/dL Globulin 3.0 (1.7-4.1) g/dL Albumin/Globulin Ratio 1.5 (1.0-2.8) Lipase 177 (23-300) U/L Discharge Plan Departure Patient Disposition: Home Clinical Impression: Trouble swallowing Discharge Date/Time: 04/05/18 18:03 Interventions: ED Discharge Assessment Last Done: 04/05/18 18:02 Instructions: DI for Esophageal Stricture Activity Restrictions/Additional Instructions: Please follow-up with primary care provider regarding her trouble swallowing. Please come back to the emergency department if you have any acute concerns such as heart attack or stroke or are unable to swallow. Prescriptions: No Action metformin 500 mg tablet 500 mg PO BID RF: 0 amlodipine 2.5 mg tablet 2.5 mg PO DAILY RF: 0 losartan 25 mg tablet 25 mg PO DAILY RF: 0 hydrochlorothiazide 12.5 mg tablet 12.5 mg PO DAILY RF: 0 liraglutide [Victoza 3-Balbir] 0.6 mg/0.1 mL (18 mg/3 mL) pen injector 0.6 mg SUBCUT DAILY RF: 0 tramadol 50 mg tablet 50 mg PO Q6H PRN (Reason: acute back/hip pain) Qty: 10 RF: 0 triamcinolone acetonide 0.1 % cream 1 applictn TOP BID Qty: 60 RF: 0 <Amaya Reese, DO - Last Filed: 04/06/18 07:39> Cosign ED Attending Cosdariusature Attestation: I was immediately available in the department for consultation. Documentation has been reviewed. I agree with assessment and plan.
[2018-04-05 16:26] LABS: Troponin I < 0.012 ng/mL (0.01-0.034)
[2018-04-05 16:30] VITALS: BP 129/70; PULSE 82; RESP 16; O2SAT 96
[2018-04-05 16:39] LABS: B Type Natriuretic Peptide < 100 (<100)
[2018-04-05 17:30] VITALS: BP 148/72; PULSE 80; RESP 19; O2SAT 99
== END 2018-04-05 18:03 | disposition home or self-care (01) ==
PROVIDERS: Emergency Provider Nurse Practitioner Family
DX: R13.10 Dysphagia, unspecified (principal)
CPT/HCPCS: 36591; 71045; 80053; 82550; 83690; 83880; 84484; 85025; 85610; 85730; 93005; 96361; 96374; 99283; 99285; C9113

== ENCOUNTER 2018-04-20 18:44 | Emergency (ER) | payer OTHER, SELFPAY ==
[2018-04-20 18:48] VITALS: BP 134/81; PULSE 75; RESP 22; TEMP 36.4; O2SAT 98
[2018-04-20 19:26] LABS: Uric Acid 7.3 mg/dL (2.5-6.2)
[2018-04-20 19:33] LABS: Add Manual Diff / Slide Review NO; Basophils Percent Auto 0.7 % (0-2); Eosinophils Percent Auto 3.3 % (2-4); Hematocrit 39.9 % (36-46); Hemoglobin 13.4 g/dL (12.0-16.0); Lymphocytes Percent Auto 25.3 % (25-40); Mean Corpuscular HGB Conc 33.7 % (30-36); Mean Corpuscular Hemoglobin 30.6 PG (26-34); Mean Corpuscular Volume 90.9 fL (80-100); Monocytes Percent Auto 7.8 % (3-14); Neutrophils Absolute Auto 6400 /uL (1500-7000); Neutrophils Percent Auto 62.9 % (50-75); Platelet Count 259 X10^3/uL (150-400); Red Blood Cell Count 4.39 X10^6/uL (4.0-5.2); Red Cell Distribution Width 13.3 % (11.6-14.8); White Blood Cell Count 10.2 X10^3/uL (4.5-11.0)
[2018-04-20 19:43] LABS: Erythrocyte Sedimentation Rate 29 MM/HR (0-20)
[2018-04-20] MEDS: INDOMETHACIN 25 MG CAPSULE PO (19:52)
[2018-04-20 20:54] VITALS: BP 147/74; PULSE 71; RESP 12; O2SAT 98
[2018-04-20] MEDS: HYDROMORPHONE 2 MG INJ 0.5 MG SUBCUT (21:06)
--- NOTE | 2018-04-23 18:03 | ED_ITS ---
HPI - Extremity Problem General Chief complaint: Extremity Problem,Nontraumatic Stated complaint: thinks it gout Time Seen by Provider: 04/20/18 19:55 Source: patient Mode of arrival: ambulatory Limitations: no limitations History of Present Illness HPI Narrative: Patient complains of a gout flare up on her left foot for the last several days. She states that she moved her recently, and is still trying to get set up with a primary doctor. She states that she normally takes indomethacin for her gout, and this is quite effective. She has been taking [id number] analgesia, but this has not been managing her symptoms well enough. She states that she has not had any fevers, and has not felt ill, nor has she had any trauma. She states the symptoms are consistent with her usual gout flares. She states the pain started in her 1st metatarsal joint, but now, pain swelling has spread over the dorsum of her foot and into her great toe, as well. She states she can walk but it is very painful. No other complaints at this time. No nausea, vomiting, abdominal pain, chest pain, shortness of breath , or other signs of illness or infection. Related Data Home Medications Medication Instructions Recorded Confirmed amlodipine 2.5 mg tablet 2.5 mg PO DAILY 12/03/17 12/03/17 hydrochlorothiazide 12.5 mg tablet 12.5 mg PO DAILY 12/03/17 12/03/17 liraglutide 0.6 mg/0.1 mL (18 mg/3 0.6 mg SUBCUT DAILY 12/03/17 12/03/17 mL) subcutaneous pen injector losartan 25 mg tablet 25 mg PO DAILY 12/03/17 12/03/17 metformin 500 mg tablet 500 mg PO BID 12/03/17 12/03/17 Previous Rx's Medication Instructions Recorded tramadol 50 mg PO Q6H PRN #10 tab 02/27/18 triamcinolone acetonide 1 applictn TOP BID #60 gram 02/27/18 hydromorphone 1 mg PO Q6H PRN #14 tab 04/20/18 indomethacin 50 mg PO TID #60 cap 04/20/18 Allergies Allergy/AdvReac Type Severity Reaction Status Date / Time Opioids - Morphine Analogues Allergy Verified 04/05/18 15:44 Review of Systems Constitutional Denies chills, Denies fever(s), Denies lethargy and Denies weakness Eyes Denies change in vision, Denies eye discharge, Denies irritation and Denies loss of vision ENT Ears, Nose, Mouth, and Throat: Denies change in voice, Denies neck pain and Denies sore throat Cardiovascular Denies chest pain, Denies irregular heart rhythm, Denies lightheadedness, Denies palpitations, Denies dyspnea, Denies dyspnea on exertion and Denies orthopnea Respiratory Denies cough, Denies dyspnea, Denies dyspnea on exertion and Denies wheezing Gastrointestinal Gastrointestinal: Denies abdominal pain, Denies change in bowel habits, Denies diarrhea, Denies nausea and Denies vomiting Genitourinary Denies hematuria, Denies flank pain, Denies urinary incontinence and Denies urinary urgency Musculoskeletal Denies neck pain Comments: Left foot pain Integumentary/Breasts Denies pruritus, Denies erythema, Denies rash and Denies wounds Neurologic Denies confusion, Denies loss of vision and Denies weakness Psychiatric Denies anxiety, Denies confusion, Denies depression, Denies homicidal ideation and Denies suicidal ideation Endocrine Denies palpitations Hematologic/Lymphatic Denies easy bruising Allergic/Immunologic Denies wheezing [facility] Medical History Diabetes mellitus type 2, noninsulin dependent (Chronic) Gout (Chronic) HTN (hypertension) (Chronic) History of renal insufficiency (Chronic) Rosacea (Chronic) Surgical History History of lumbar spinal fusion (Resolved) Status post total hip replacement, bilateral (Resolved) Social History Smoking Status: Never smoker alcohol intake: never Exam Initial Vital Signs Initial Vital Signs: Vital Signs Temperature 97.5 F L 04/20/18 18:48 Pulse Rate 75 04/20/18 18:48 Respiratory Rate 22 04/20/18 18:48 Blood Pressure 134/81 04/20/18 18:48 Pulse Oximetry 98 04/20/18 18:48 Const General: cooperative and well developed Nutritional Appearance: well nourished Orientation: alert, awake, oriented x3 and not confused HENMT Head: normocephalic and atraumatic Ears: external ears normal and TM's normal bilaterally Nose: external nose normal and No nasal discharge Face and sinus: sinuses nontender, face symmetric, no sinus tenderness and No dry mucous membranes Mouth: oral mucosae normal and moist mucous membranes Teeth and gingiva: dentition normal Throat: tonsils normal and uvula midline Eyes General: appearance normal, both eyes and all related structures Eyelids: eyelids normal Conjunctivae: conjunctivae normal Sclera: sclerae normal Pupils: PERRL EOM: EOM intact bilaterally Neck Neck: normal visual inspection, trachea midline, No lymphadenopathy, No midline deformity and No JVD Lymphatic: No lymphedema Chest Chest: normal inspection of the chest Resp Effort & Inspection: normal respiratory effort, able to speak in complete sentences, no respiratory distress and no use of accessory muscles Auscultation: clear to auscultation bilaterally, no rales, no rhonchi and no wheezes Cardio Rate: regular rate Rhythm: regular rhythm Heart Sounds: no click, no gallops, no murmurs and no rubs Pulses: normal peripheral pulses GI Inspection: non-distended Palpation: soft, no hepatosplenomegaly, No guarding, No pulsatile mass and No tender Auscultation: normal bowel sounds Back/Spine/Pelvis Back: No CVA tenderness Cervical Spine: cervical ROM normal and No pain with cervical ROM Thoracic/Lumbar Spine: thoracic and lumbar spine normal to inspection Skin General: no rashes or lesions noted, No erythema (Specifically, of the left foot.), No jaundice and No petechiae Neuro General: alert, oriented x3, gait normal and no focal motor deficits Speech: speech normal Extrem General: full ROM (Generally, excluding left toes, secondary to pain.) Left lower extremity: edema (Left foot, nonpitting, moderate, involving dorsum and toes, especially great toe. No tophi are grossly noted.) Psych Appearance: well kempt Mental Status: mental status grossly normal Attitude: cooperative Thought Content: normal and suicidality Judgment: judgment good Course Course Narrative: The patient had reported that her symptoms were consistent with previous gout flares, and there were no signs of cellulitis, in terms of erythema or fever or feeling of illness. Additionally, the patient's uric acid level was elevated, but her white blood cell count was normal. I did discussed symptomatic treatment with the patient, including indomethacin here in the emergency department. Patient is very sensitive to narcotic pain medication, and states that the only medication that has previously been helpful is Dilaudid in very small doses. Patient was given a dose here in the emergency department, and was also prescribed a very small dose for at home. We have discussed symptomatic treatment at home, as well as the usual indications for return. Orders Ordered: Discontinued Medications Hydromorphone HCl (Dilaudid) 0.5 mg SUBCUT NOW ONE Stop: 04/20/18 20:53 Last Admin: 04/20/18 21:06 Dose: 0.5 mg Indomethacin (Indocin) 25 mg PO NOW ONE Stop: 04/20/18 19:05 Last Admin: 04/20/18 19:52 Dose: 25 mg MDM - Extremity (Nontraumatic) Medical Records Attestation: I reviewed the patient's medical records. Lab Data Attestation: I reviewed the patient's lab results. Result diagrams: 04/20/18 19:09 Lab Results 04/20/18 04/20/18 Range/Units 19: 19:09 WBC 10.2 (4.5-11.0) X10^3/uL RBC 4.39 (4.0-5.2) X10^6/uL Hgb 13.4 (12.0-16.0) g/dL Hct 39.9 (36-46) % MCV 90.9 (80-100) fL MCH 30.6 (26-34) PG MCHC 33.7 (30-36) % RDW 13.3 (11.6-14.8) % Plt Count 259 (150-400) X10^3/uL Neut % (Auto) 62.9 (50-75) % Lymph % (Auto) 25.3 (25-40) % [place] % (Auto) 7.8 (3-14) % Eos % (Auto) 3.3 (2-4) % Baso % (Auto) 0.7 (0-2) % Neut # (Auto) 6400 (5418-4840) /uL ESR 29 H (0-20) MM/HR Uric Acid 7.3 H (2.5-6.2) mg/dL Discharge Plan Departure Patient Disposition: Home Clinical Impression: Gout Discharge Date/Time: 04/20/18 21:53 Interventions: ED Discharge Assessment Last Done: 04/20/18 21:53 Instructions: DI for Gout Prescriptions: New hydromorphone 2 mg tablet 1 mg PO Q6H PRN (Reason: pain) Qty: 14 RF: 0 indomethacin 50 mg capsule 50 mg PO TID Qty: 60 RF: 0 No Action metformin 500 mg tablet 500 mg PO BID RF: 0 amlodipine 2.5 mg tablet 2.5 mg PO DAILY RF: 0 losartan 25 mg tablet 25 mg PO DAILY RF: 0 hydrochlorothiazide 12.5 mg tablet 12.5 mg PO DAILY RF: 0 liraglutide [Victoza 3-Balbir] 0.6 mg/0.1 mL (18 mg/3 mL) pen injector 0.6 mg SUBCUT DAILY RF: 0 tramadol 50 mg tablet 50 mg PO Q6H PRN (Reason: acute back/hip pain) Qty: 10 RF: 0 triamcinolone acetonide 0.1 % cream 1 applictn TOP BID Qty: 60 RF: 0 Referrals: Riley Grimes MD [Primary Care Provider] -
== END 2018-04-20 21:53 | disposition home or self-care (01) ==
PROVIDERS: Emergency Provider Emergency Medicine; Family Provider Internal Medicine; PCP Internal Medicine
DX: M10.9 Gout, unspecified (principal)
CPT/HCPCS: 84550; 85025; 85651; 96372; 99282; 99283; J1170

== ENCOUNTER → 2018-09-29 09:48 | Outpatient (CLI) | payer OTHER, SELFPAY ==
[2018-09-29 11:21] LABS: Thyroid Stimulating Hormone 2.03 uIU/mL (0.47-4.68)
== END ==
PROVIDERS: PCP Internal Medicine; Visit Provider Internal Medicine
DX: R41.3 Other amnesia (principal)
CPT/HCPCS: 36415; 84443

== ENCOUNTER 2018-10-06 19:33 | Emergency (ER) | payer OTHER, SELFPAY ==
--- NOTE | 2018-10-06 19:39 | ED.WOUNDLAC ---
HPI - Wound/Laceration <Xi Corea PA-C - Last Filed: 10/06/18 21:08> General Chief Complaint: Wound/Laceration Stated Complaint: dog bite right forearm Time Seen by Provider: 10/06/18 19:39 Source: patient Mode of arrival: ambulatory Limitations: no limitations History of Present Illness HPI narrative: This 78-year-old right-handed female got bit in the right forearm at the dog park an hour so prior to arrival while trying to separate her dog from another that 1 after it. She states this was a bull terrier puppy she believes, vaccine status unknown. She states that the dog appeared to be behaving normally prior. She states that her forearm bled profusely at 1st, now looks minor and she was hesitant to come in. She denies any other bites. She denies any difficulty moving the arm, wrist or hand. She is not sure whether her tetanus vaccine is up-to-date. Related Data Home Medications Medication Instructions Recorded Confirmed amlodipine 2.5 mg tablet 2.5 mg PO DAILY 12/03/17 12/03/17 hydrochlorothiazide 12.5 mg tablet 12.5 mg PO DAILY 12/03/17 12/03/17 liraglutide 0.6 mg/0.1 mL (18 mg/3 0.6 mg SUBCUT DAILY 12/03/17 12/03/17 mL) subcutaneous pen injector losartan 25 mg tablet 25 mg PO DAILY 12/03/17 12/03/17 metformin 500 mg tablet 500 mg PO BID 12/03/17 12/03/17 Previous Rx's Medication Instructions Recorded tramadol 50 mg PO Q6H PRN #10 tab 02/27/18 triamcinolone acetonide 1 applictn TOP BID #60 gram 02/27/18 hydromorphone 1 mg PO Q6H PRN #14 tab 04/20/18 indomethacin 50 mg PO TID #60 cap 04/20/18 doxycycline monohydrate 100 mg PO BID 7 Days #14 cap 10/06/18 Allergies Allergy/AdvReac Type Severity Reaction Status Date / Time Opioids - Morphine Analogues Allergy Verified 04/05/18 15:44 Review of Systems <Xi Corea PA-C - Last Filed: 10/06/18 21:08> Review of Systems ROS Unobtainable: All systems reviewed & are unremarkable except as noted in HPI and below PFSH <Xi Corea PA-C - Last Filed: 10/06/18 21:08> Medical History Diabetes mellitus type 2, noninsulin dependent (Chronic) Gout (Chronic) HTN (hypertension) (Chronic) History of renal insufficiency (Chronic) Rosacea (Chronic) Surgical History History of lumbar spinal fusion (Resolved) Status post total hip replacement, bilateral (Resolved) Social History Smoking Status: Never smoker alcohol intake: never Social History Smoking Status: Never smoker alcohol intake: never Exam <Xi Corea PA-C - Last Filed: 10/06/18 21:08> Narrative Exam Narrative: GENERAL APPEARANCE: Patient sitting comfortably, in no distress. LUNGS: Clear to auscultation bilaterally. HEART: Rate and rhythm regular without murmur, normal S1 and S2, no S3 or S4. DERMATOLOGIC: Right forearm dorsum there is a 1 cm shallow laceration, scabbed, no separation at the edges, no surrounding edema or ecchymoses. No lacerations or ecchymoses noted elsewhere. MUSCULOSKELETAL: Right hand fingers are nodular. She has full range of motion of right hand fingers and wrist. Mild tenderness over the right forearm close to the wound site, no effusion or tenderness elsewhere NEUROVASCULAR: Right hand fingers are warm and pink, sensation grossly intact Initial Vital Signs Initial Vital Signs: Vital Signs Temperature 97.9 F 10/06/18 19:42 Pulse Rate 81 10/06/18 19:42 Respiratory Rate 18 10/06/18 19:42 Blood Pressure 150/84 H 10/06/18 19:42 Pulse Oximetry 96 10/06/18 19:42 <Oneida Orona MD - Last Filed: 10/07/18 02:55> Initial Vital Signs Initial Vital Signs: Vital Signs Temperature 97.9 F 10/06/18 19:42 Pulse Rate 81 10/06/18 19:42 Respiratory Rate 18 10/06/18 19:42 Blood Pressure 150/84 H 10/06/18 19:42 Pulse Oximetry 96 10/06/18 19:42 Course <Xi Corea PA-C - Last Filed: 10/06/18 21:08> Orders Ordered: Discontinued Medications Diphtheria/Tetanus/Acell Pertussis (Adacel) 0.5 ml IM .ONCE ONE Stop: 10/06/18 20:01 Last Admin: 10/06/18 20:05 Dose: Not Given Vital Signs - 8 hr 10/06/18 19:42 Temperature 97.9 F Pulse Rate 81 Respiratory Rate 18 Blood Pressure 150/84 H Pulse Oximetry 96 <Oneida Orona MD - Last Filed: 10/07/18 02:55> Orders Ordered: Discontinued Medications Diphtheria/Tetanus/Acell Pertussis (Adacel) 0.5 ml IM .ONCE ONE Stop: 10/06/18 20:01 Last Admin: 10/06/18 20:05 Dose: Not Given Vital Signs - 8 hr 10/06/18 19:42 Temperature 97.9 F Pulse Rate 81 Respiratory Rate 18 Blood Pressure 150/84 H Pulse Oximetry 96 Discharge Plan Departure Patient Disposition: Home Clinical Impression: Dog bite of arm Qualifiers: Encounter type: initial encounter Laterality: right Qualified Code(s): S41.151A - Open bite of right upper arm, initial encounter Discharge Date/Time: 10/06/18 20:06 Interventions: ED Discharge Assessment Last Done: 10/06/18 20:06 Instructions: DI for Dog Bite Activity Restrictions/Additional Instructions: Please monitor for any signs of acutely worsening infection as we talked about such as rapidly spreading redness, increasing pain or swelling, new fever, and return or see your PCP right away if any. Otherwise, we have given you an antibiotic called doxycycline to help prevent infection. Please start that tonight and continue twice daily. Please see your PCP on Wednesday for follow-up and recheck. Prescriptions: New doxycycline monohydrate 100 mg capsule 100 mg PO BID 7 Days Qty: 14 RF: 0 No Action metformin 500 mg tablet 500 mg PO BID RF: 0 amlodipine 2.5 mg tablet 2.5 mg PO DAILY RF: 0 losartan 25 mg tablet 25 mg PO DAILY RF: 0 hydrochlorothiazide 12.5 mg tablet 12.5 mg PO DAILY RF: 0 liraglutide [Victoza 3-Balbir] 0.6 mg/0.1 mL (18 mg/3 mL) pen injector 0.6 mg SUBCUT DAILY RF: 0 tramadol 50 mg tablet 50 mg PO Q6H PRN (Reason: acute back/hip pain) Qty: 10 RF: 0 triamcinolone acetonide 0.1 % cream 1 applictn TOP BID Qty: 60 RF: 0 hydromorphone 2 mg tablet 1 mg PO Q6H PRN (Reason: pain) Qty: 14 RF: 0 indomethacin 50 mg capsule 50 mg PO TID Qty: 60 RF: 0 Referrals: Belinda Vasquez MD [Primary Care Provider] -
[2018-10-06 19:42] VITALS: BP 150/84; PULSE 81; RESP 18; TEMP 36.6; O2SAT 96; BMI 35.5
== END 2018-10-06 20:06 | disposition home or self-care (01) ==
PROVIDERS: Emergency Provider Internal Medicine; PCP Internal Medicine
DX: S41.151A Open bite of right upper arm, initial encounter (principal); W54.0XXA Bitten by dog, initial encounter; Y93.9 Activity, unspecified; Y92.830 Public park as the place of occurrence of the external cause
CPT/HCPCS: 99283

== ENCOUNTER → 2018-10-12 12:17 | Outpatient (CLI) | payer OTHER, SELFPAY ==
--- NOTE | 2018-10-12 | DI.MG.S_ITS ---
BILATERAL DIGITAL SCREENING MAMMOGRAM 3D/2D WITH CAD: 10/12/2018 CLINICAL: Routine screening. Family history of breast cancer. Comparison is made to exams dated: 07/02/2016 mammogram, 07/02/2015 mammogram, and 06/26/2014 mammogram - [facility]. There are scattered fibroglandular elements in both breasts. Current study was also evaluated with a Computer Aided Detection (CAD) system. There are benign calcifications in both breasts. No significant masses, calcifications, or other findings are seen in either breast. There has been no significant interval change. IMPRESSION: There is no mammographic evidence of malignancy. A 1 year screening mammogram is recommended. This exam was interpreted at Station ID: [id number]. NOTE: For mammograms, a report in lay terms will be sent to the patient. Approximately 15% of breast malignancies will not be visualized mammographically. In the management of a palpable breast mass, a negative mammogram must not discourage biopsy of a clinically suspicious lesion. Electronically Signed By: Juan leyva/kameron:10/12/2018 17:14:18 letter sent: Normal Exam ACR BI-RADS Category 2: Benign Finding(s) [id number]
== END ==
PROVIDERS: PCP Internal Medicine; Visit Provider Internal Medicine
DX: Z12.31 Encounter for screening mammogram for malignant neoplasm of breast (principal); Z80.3 Family history of malignant neoplasm of breast
CPT/HCPCS: 77063; 77067

== ENCOUNTER → 2018-11-26 14:42 | Outpatient (CLI) | payer OTHER, SELFPAY ==
--- NOTE | 2018-11-26 | DI.MRI.S_ITS ---
PROCEDURE: MR LUMBAR SPINE WO CON INDICATIONS: LOW BACK AND LEFT HIP PAIN. BIALTERAL LEG WEAKNESS TECHNIQUE: Noncontrast sagittal T1 spin echo and T2 fast echo, sagittal STIR, axial T1 and T2 fast spin echo through the lumbar spine. In cases with scoliosis, additional coronal T2 fast spin echo may be performed. COMPARISON: [facility], CR, XR LUMBAR SPINE 2-3V, 02/27/2018, 15:44. FINDINGS: Image quality: Excellent. Alignment and Curvature: There is normal bony alignment. Remote posterior laminectomy L4-S1 and posterior lateral erin and pedicle screw fixation and far posterior lateral bony fusion material placement at L3-4 through L5-S1. Bone Marrow: Marrow is of normal overall signal. No acute vertebral body compression fractures. Spinal Cord: Conus medullaris terminates at the L1-L2 level. Visualized cord demonstrates normal signal and size. Paraspinous Soft Tissues: No paravertebral masses. T12-L1: Severe chronic disc height loss. Moderate diffuse disc bulge. Facet and ligament hypertrophy. No canal stenosis or significant foraminal stenosis. L1-L2: No canal stenosis or foraminal stenosis. Mild facet hypertrophy. L2-L3: Moderate chronic disc loss. Diffuse disc bulge, eccentric to the left. Left lateral recess stenosis and mild central canal stenosis. Bilateral facet hypertrophy. Mild bilateral foraminal stenosis. L3-L4: Moderate chronic disc height loss. Posterior disc plus osteophyte. Severe multifactorial canal stenosis secondary to posterior disc plus osteophyte and facet and ligament hypertrophy. Severe left foraminal narrowing and mild right foraminal narrowing. L4-L5: Remote posterior laminectomy and posterior lateral erin and pedicle screw fixation. No canal stenosis or foraminal stenosis. L5-S1: Remote posterior laminectomy and posterior lateral erin and pedicle screw fixation. No canal stenosis or foraminal stenosis. IMPRESSION: 1. Remote lower lumbar laminectomy and fusion. 2. At L3-L4, there is severe multifactorial canal stenosis. There is severe left foraminal narrowing at L3-L4, as well. 3. At L2-L3, there is left lateral recess stenosis and mild central canal stenosis. Dictated by: Zach Hansen M.D. on 11/26/2018 at 18:02 Approved by: Zach Hansen M.D. on 11/26/2018 at 18:13
== END ==
PROVIDERS: PCP Internal Medicine; Visit Provider Internal Medicine
DX: M54.16 Radiculopathy, lumbar region (principal); M48.061 Spinal stenosis, lumbar region without neurogenic claudication; M25.552 Pain in left hip; Z98.1 Arthrodesis status
CPT/HCPCS: 72148

== ENCOUNTER 2019-01-23 10:23 | Emergency (ER) | payer OTHER, SELFPAY ==
[2019-01-23 10:43] VITALS: BP 128/74; PULSE 85; RESP 20; TEMP 37; O2SAT 97; BMI 33.5
[2019-01-23 12:35] VITALS: BP 132/68; PULSE 76; RESP 19; O2SAT 97
[2019-01-23] MEDS: PROPARACAINE 0.5% OPHTH SOL 1 DROPS EYE-RIGHT (12:55)
--- NOTE | 2019-01-23 13:07 | ED.HA ---
HPI - Headache General Chief Complaint: Headache Stated Complaint: HURTS TO TURN HEAD,BUMP BEHIND EAR Time Seen by Provider: 01/23/19 12:48 Source: patient Mode of arrival: Ambulatory Limitations: no limitations History of Present Illness HPI Narrative: Patient is a 78-year-old female here for evaluation of red bumps and pain behind her right ear. She states that they have been worsening over the past couple days. She does have some pain in her right ear. Does have some tingling and ?weird? sensations in the right side of her face. She also has some blurry vision to her right eye. She did have chickenpox as a kid. She is concerned that she potentially has a shingles outbreak in this area. States that she has had shingles in the past in her left abdomen. Has not tried anything for the symptoms prior to arrival Related Data Home Medications Medication Instructions Recorded Confirmed amlodipine 2.5 mg tablet 2.5 mg PO DAILY 12/03/17 01/23/19 hydrochlorothiazide 12.5 mg tablet 12.5 mg PO DAILY 12/03/17 01/23/19 losartan 25 mg tablet 25 mg PO DAILY 12/03/17 01/23/19 liraglutide [Victoza 3-Balbir] 0.6 mg SUBCUT DAILY 01/23/19 01/23/19 simvastatin 20 mg PO DAILY 01/23/19 01/23/19 Previous Rx's Medication Instructions Recorded triamcinolone acetonide 1 applictn TOP BID #60 gram 02/27/18 acyclovir 800 mg PO 5XD 7 Days #35 tab 01/23/19 Allergies Allergy/AdvReac Type Severity Reaction Status Date / Time Opioids - Morphine Analogues Allergy Verified 11/03/18 10:28 Review of Systems Constitutional Constitutional: Denies fatigue and Denies fever(s) Eyes Comments: Blurry vision right eye ENT Comments: Pain in the right ear Cardiovascular Cardiovascular: Denies chest pain and Denies dyspnea Respiratory Respiratory: Denies dyspnea Gastrointestinal Gastrointestinal: Denies abdominal pain, Denies nausea and Denies vomiting Genitourinary Genitourinary: Denies dysuria Musculoskeletal Musculoskeletal: Denies myalgias and Denies arthralgias Integumentary/Breasts Comments: Red bumps behind the right ear Neurologic Comments: Tingling to the right side of the face Endocrine Endocrine: Denies fatigue Hematologic/Lymphatic Hematologic/Lymphatic: Denies easy bleeding and Denies easy bruising Allergic/Immunologic Allergic/Immunologic: Denies urticaria Patient History Medical History Medical History Diabetes mellitus type 2, noninsulin dependent (Chronic) Gout (Chronic) History of renal insufficiency (Chronic) HTN (hypertension) (Chronic) Rosacea (Chronic) Social History Social History Smoking Status: Never smoker alcohol intake: never alcohol intake frequency: 0-2 drinks per day Substance Use Type: does not use Exam Initial Vital Signs Initial Vital Signs: Vital Signs Temperature 98.6 F 01/23/19 10:43 Pulse Rate 85 01/23/19 10:43 Respiratory Rate 20 01/23/19 10:43 Blood Pressure 128/74 01/23/19 10:43 Pulse Oximetry 97 01/23/19 10:43 Const General: cooperative, healthy appearing, comfortable, well developed, well groomed and No acute distress Orientation: alert, awake and oriented x3 HENMT Ears: TM's normal bilaterally Nose: external nose normal Face and sinus: normal facial exam Mouth: oral mucosae normal Eyes Eyelids: eyelids normal Cornea: corneas normal and fluorescein used Pupils: PERRL EOM: EOM intact bilaterally Resp Effort & Inspection: normal respiratory effort Auscultation: clear to auscultation bilaterally Cardio Rate: regular rate Rhythm: regular rhythm Skin Other: Patient has a small patch of clumped vesicles behind the right ear. Some or crusting. Does have several other scattered red bumps within the hairline on the right occipital region of her scalp. Neuro General: alert, awake and oriented x3 Cranial Nerves: CN's II-XI intact bilaterally Cognition: normal cognition Speech: speech normal Extrem General: normal to inspection and capillary refill normal Psych Appearance: grossly normal and well kempt Course Orders Ordered: Discontinued Medications Proparacaine HCl (Parcaine 0.5% Ophth Christi) 1 drops EYE-RIGHT NOW ONE Stop: 01/23/19 12:56 Last Admin: 01/23/19 12:55 Dose: 1 drop Documented by: BRIT Vital Signs Vital signs: Vital Signs - 8 hr 01/23/19 12:35 01/23/19 13:35 Pulse Rate 76 78 Respiratory Rate 19 14 Blood Pressure 130/65 Blood Pressure [Left Arm] 132/68 Pulse Oximetry 97 99 MDM - Headache MDM Narrative Medical decision making narrative: Patient's history and physical exam is consistent with shingles. She has no lesions noted within the right ear. She has no dendrites her uptake of fluorescein in the right eye. She has no lesions on her nose. Her cranial nerves are unremarkable. She has no right facial nerve findings. Symptoms have been going on for the past 1-2 days. We will start her on acyclovir. She does have pain medication at home. We did discuss return precautions and follow-up instructions. She expressed understanding and agreement with plan. Discharge Plan Departure Patient Disposition: Home Clinical Impression: Shingles outbreak Qualifiers: Herpes zoster complications: without complications Qualified Code(s): B02.9 - Zoster without complications Discharge Date/Time: 01/23/19 13:35 Instructions: Shingles (Herpes Zoster) (Alternative Therapy), Shingles Activity Restrictions/Additional Instructions: Take all the medications as directed. Contact your primary provider for a follow-up. Return to the emergency department for any new symptoms to include fevers, changes in your vision in the right eye. Right ear pain. Or any other new or concerning symptoms Prescriptions: New acyclovir 800 mg tablet 800 mg PO 5XD 7 Days Qty: 35 RF: 0 No Action amlodipine 2.5 mg tablet 2.5 mg PO DAILY RF: 0 losartan 25 mg tablet 25 mg PO DAILY RF: 0 hydrochlorothiazide 12.5 mg tablet 12.5 mg PO DAILY RF: 0 triamcinolone acetonide 0.1 % cream 1 applictn TOP BID Qty: 60 RF: 0 simvastatin 20 mg tablet 20 mg PO DAILY RF: 0 Victoza 3-Balbir 0.6 mg/0.1 mL (18 mg/3 mL) pen injector 0.6 mg SUBCUT DAILY RF: 0 Referrals: Belinda Vasquez MD [Primary Care Provider] -
[2019-01-23 13:35] VITALS: BP 130/65; PULSE 78; RESP 14; O2SAT 99
== END 2019-01-23 13:35 | disposition home or self-care (01) ==
PROVIDERS: Emergency Provider Emergency Medicine; PCP Internal Medicine
DX: B02.9 Zoster without complications (principal)
CPT/HCPCS: 99283

== ENCOUNTER → 2019-06-05 19:11 | Outpatient (ROUT) | payer OTHER, SELFPAY | PROVIDERS: Visit Provider Internal Medicine | DX: R39.9 Unspecified symptoms and signs involving the genitourinary system (principal); N30.00 Acute cystitis without hematuria | CPT/HCPCS: 87077; 87086; 87186 ==

== ENCOUNTER 2019-09-05 14:16 | Emergency (ER) | payer OTHER, SELFPAY ==
[2019-09-05] VITALS (11 sets, daily range): BP systolic 132–180; BP diastolic 58–89; PULSE 69–85; RESP 14–22; TEMP 36.1; O2SAT 95–99
--- NOTE | 2019-09-05 14:38 | DI.RAD.S_ITS ---
PROCEDURE: XR CHEST 1V INDICATIONS: soa/cp TECHNIQUE: One view of the chest was acquired. COMPARISON: [facility], CR, XR CHEST 1V, 04/05/2018, 16:27. [facility], CR, XR CHEST 2V, 12/03/2017, 18:35. FINDINGS: Surgical changes and devices: None. Lungs and pleura: Lungs are clear. No pleural effusions or pneumothorax. Mediastinum: Mediastinal contours appear normal. Heart size is normal. Bones and chest wall: No suspicious bony lesions. Overlying soft tissues appear unremarkable. IMPRESSION: Source of chest pain is not identified. Dictated by: Reyes Hernandez M.D. on 09/05/2019 at 15:55 Approved by: Reyes Hernandez M.D. on 09/05/2019 at 15:56
[2019-09-05 14:53] LABS: Add Manual Diff / Slide Review NO; Basophils Absolute Auto 100 /uL (0-100); Basophils Percent Auto 1.1 % (0-2); Eosinophils Absolute Auto 200 /uL (0-450); Eosinophils Percent Auto 2.1 % (2-4); Hemoglobin 13.7 g/dL (12.0-16.0); Lymphocytes Absolute Auto 2200 /uL (1100-4500); Lymphocytes Percent Auto 22.3 % (25-40); Mean Corpuscular HGB Conc 34.4 % (30-36); Mean Corpuscular Hemoglobin 30.6 PG (26-34); Monocytes Absolute Auto 700 /uL (0-900); Monocytes Percent Auto 7.3 % (3-14); Neutrophils Absolute Auto 6600 /uL (1500-7000); Neutrophils Percent Auto 67.2 % (50-75); Platelet Count 250 X10^3/uL (150-400); Red Blood Cell Count 4.49 X10^6/uL (4.0-5.2); Red Cell Distribution Width 13.2 % (11.6-14.8); White Blood Cell Count 9.8 X10^3/uL (4.5-11.0)
[2019-09-05 15:05] LABS: Alanine Aminotransferase 33 IU/L (<35); Albumin 4.4 g/dL (3.5-5.0); Albumin Globulin Ratio 1.4 (1.0-2.8); Alkaline Phosphatase 121 U/L (38-126); Aspartate Aminotransferase 31 IU/L (14-36); BUN Creatinine Ratio 18.3 (6-22); Bilirubin Total 0.5 mg/dL (0.2-1.3); Blood Urea Nitrogen 19 mg/dL (7-17); Calcium 9.5 mg/dL (8.4-10.2); Carbon Dioxide 22 mmol/L (22-32); Chloride 108 mmol/L (98-107); Creatine Kinase 85 U/L (30-135); Estimated Glomerular Filt Rate 51.4 mL/min (>60); Globulin 3.1 g/dL (1.7-4.1); Glucose 117 mg/dL (80-110); HEMOLYSIS < 15 (0-50); Lipase 186 U/L (23-300); Sodium 140 mmol/L (137-145); Total Protein 7.5 g/dL (6.3-8.2)
--- NOTE | 2019-09-05 15:14 | ED_ITS ---
HPI - Chest Pain General Chief Complaint: Chest Pain Stated Complaint: PER PROV/ NEEDED TO HAVE HEART TESTED Time Seen by Provider: 09/05/19 14:32 Source: patient Mode of arrival: Ambulatory Limitations: no limitations History of Present Illness HPI narrative: 79-year-old female with history of hypertension and hyper lipidemia is a nonsmoker and presents with a chief complaint of significant exertional shortness of breath the past 1-2 weeks. Her symptoms are worsening in intensity and duration. She denies any current discomfort nor radiation of her discomfort. She denies any recent travel or history of blood clot. She denies any runny nose, sore throat or cough. She denies any fever, chills nor nausea or vomiting. MD complaint: other Onset (ago): week(s) Duration: progressively worsening Onset: during rest Severity: moderate Relieving factors: rest Exacerbating factors: exertion Treatments prior to arrival chest pain: none Related Data On Oral Contraceptives: No Home Medications Medication Instructions Recorded Confirmed amlodipine 2.5 mg tablet 2.5 mg PO DAILY 12/03/17 01/23/19 hydrochlorothiazide 12.5 mg tablet 12.5 mg PO DAILY 12/03/17 01/23/19 losartan 25 mg tablet 25 mg PO DAILY 12/03/17 01/23/19 liraglutide [Victoza 3-Balbir] 0.6 mg SUBCUT DAILY 01/23/19 01/23/19 simvastatin 20 mg PO DAILY 01/23/19 01/23/19 Previous Rx's Medication Instructions Recorded triamcinolone acetonide 1 applictn TOP BID #60 gram 02/27/18 Allergies Allergy/AdvReac Type Severity Reaction Status Date / Time Opioids - Morphine Analogues Allergy Verified 06/08/19 12:25 Review of Systems Constitutional Constitutional: Denies chills, Denies fatigue, Denies fever(s), Denies frequent falls, Denies lethargy and Denies weakness Eyes Eyes: Denies change in vision, Denies eye discharge, Denies irritation and Denies loss of vision ENT Ears, Nose, Mouth, and Throat: Denies change in voice, Denies dizziness, Denies neck pain, Denies sore throat and Denies throat swelling Cardiovascular Cardiovascular: Denies chest pain, Denies irregular heart rhythm, Denies lightheadedness, Denies palpitations, Reports dyspnea, Reports dyspnea on exertion and Denies orthopnea Respiratory Respiratory: Denies cough, Reports dyspnea, Reports dyspnea on exertion and Denies wheezing Gastrointestinal Gastrointestinal: Denies abdominal pain, Denies change in bowel habits, Denies diarrhea, Denies nausea and Denies vomiting Genitourinary Genitourinary: Denies hematuria, Denies flank pain, Denies urinary incontinence and Denies urinary urgency Musculoskeletal Musculoskeletal: Denies back pain, Denies muscle weakness, Denies neck pain, Denies numbness and Denies tingling Integumentary/Breasts Skin/Breast: Denies pruritus, Denies erythema, Denies rash and Denies wounds Neurologic Neurologic: Denies behavioral changes, Denies confusion, Denies dizziness, Denies frequent falls, Denies loss of vision, Denies numbness, Denies tingling and Denies weakness Psychiatric Psychiatric: Denies anxiety, Denies behavioral changes, Denies confusion, Denies depression, Denies homicidal ideation and Denies suicidal ideation Endocrine Endocrine: Denies fatigue, Denies flushing and Denies palpitations Hematologic/Lymphatic Hematologic/Lymphatic: Denies easy bruising Allergic/Immunologic Allergic/Immunologic: Denies urticaria, Denies throat swelling and Denies wheezing Patient History Medical History Diabetes mellitus type 2, noninsulin dependent (Chronic) Gout (Chronic) History of renal insufficiency (Chronic) HTN (hypertension) (Chronic) Rosacea (Chronic) Surgical History History of lumbar spinal fusion (Resolved) Status post total hip replacement, bilateral (Resolved) Social History Smoking Status: Never smoker alcohol intake: never Smoking Status: Never smoker alcohol intake frequency: 0-2 drinks per day Substance Use Type: does not use Exam Narrative Exam Narrative: GENERAL: [79] year old patient appears stated age. Well- nourished, well-developed patient, in mild distress. HEAD: Atraumatic. Normocephalic. EYES: Pupils equal round and reactive. Extraocular motions intact. No scleral icterus. No injection or drainage. ENT: Nose without bleeding, purulent drainage. Throat without erythema, tonsillar hypertrophy or exudate. Airway patent. NECK: Trachea midline. Non tender CARDIOVASCULAR: Regular rate and rhythm without murmurs, gallops, or rubs. RESPIRATORY: Clear to auscultation. Breath sounds equal bilaterally. No wheezes, rales, or rhonchi. GASTROINTESTINAL: Abdomen soft, non-tender, nondistended. EXTREMITIES: No edema or joint tenderness. BACK: Nontender without deformity or crepitance. No flank tenderness. NEURO: AOx3. SKIN: No rash or erythema of visible areas Initial Vital Signs Initial Vital Signs: Vital Signs Temperature 97.0 F L 09/05/19 14:32 Pulse Rate 85 09/05/19 14:32 Respiratory Rate 22 09/05/19 14:32 Blood Pressure 132/73 09/05/19 14:32 Pulse Oximetry 95 09/05/19 14:32 Course Orders Ordered: ED Orders 09/05/19 14:38 XR chest 1V Stat EKG-12 Lead Stat 09/05/19 14:43 Complete Blood Count AUTO DIFF Stat Comprehensive Metabolic Panel Stat D Dimer Stat Lipase Stat NT-proBNP (BNP-Adult 18+) Stat Troponin & CK Cardiac Panel Stat 09/05/19 17:27 CT angio chest PE protocol Stat 09/05/19 18:32 EKG-12 Lead Stat 09/05/19 18:45 Troponin I Stat 09/05/19 19:15 Partial Thromboplastin Time Stat 09/06/19 01:15 PTT [Partial Thromboplastin Time] Q6H 09/06/19 07:15 PTT [Partial Thromboplastin Time] Q6H 09/06/19 13:15 PTT [Partial Thromboplastin Time] Q6H Sodium Chloride (Normal Saline 0.9%) 1,000 mls @ 150 mls/hr IV CONT GUILLERMINA Last Infusion: 09/05/19 18:33 Dose: 0 mls/hr Documented by: Admin: 09/05/19 15:34 Dose: 150 mls/hr Documented by: MARYLOU Heparin Sodium/Dextrose (Heparin Drip) 25,000 unit in 500 mls @ 20 mls/hr IV CONT GUILLERMINA; Protocol Last Admin: 09/05/19 19:47 Dose: 1,000 units/hr, 20 mls/hr Documented by: CARRIE Nitroglycerin (Nitrostat) 0.4 mg SL [id number] PRN PRN Reason: Chest Pain Last Admin: 09/05/19 19:02 Dose: 0.4 mg Documented by: Admin: 09/05/19 18:42 Dose: 0.4 mg Documented by: CARRIE Discontinued Medications Aspirin (Aspirin Chew) 324 mg PO NOW ONE Stop: 09/05/19 14:39 Last Admin: 09/05/19 15:33 Dose: 324 mg Documented by: MARYLOU Heparin Sodium (Porcine) (Heparin) 5,000 unit IV NOW ONE Stop: 09/05/19 19:12 Last Admin: 09/05/19 19:46 Dose: 5,000 unit Documented by: CARRIE Nitroglycerin (Nitro-Bid) 0.5 inch TOP NOW ONE Stop: 09/05/19 19:21 Last Admin: 09/05/19 19:49 Dose: 0.5 inch Documented by: CARRIE Reevaluation(s) Reevaluation #1: called to bedside to evaluate a reocccurence of pain, while at rest. Resolves after 2nd nitro. Paste ordered. [facility] to [facility] recommends transfer with heparin. Hospitalist paged. Vital Signs Vital signs: Vital Signs - 8 hr 09/05/19 14:32 09/05/19 15:57 09/05/19 17:23 Temperature 97.0 F L Pulse Rate 85 73 78 Respiratory Rate 22 20 15 Blood Pressure 132/73 Blood Pressure [Right Arm] 180/77 H 175/89 H Pulse Oximetry 95 98 99 09/05/19 18:33 09/05/19 18:42 09/05/19 18:50 Temperature Pulse Rate 81 73 76 Respiratory Rate 16 22 Blood Pressure 155/67 H Blood Pressure [Right Arm] 178/81 H 132/58 L Pulse Oximetry 99 98 09/05/19 19:01 09/05/19 19:02 09/05/19 19:37 Temperature Pulse Rate 74 69 Respiratory Rate 14 22 Blood Pressure 158/72 H Blood Pressure [Right Arm] 158/72 H 133/63 Pulse Oximetry 96 97 09/05/19 19:49 09/05/19 20:00 Temperature Pulse Rate 70 Respiratory Rate 17 Blood Pressure 132/58 L Blood Pressure [Right Arm] 138/78 Pulse Oximetry 97 MDM - Chest Pain Lab Data Result diagrams: 09/05/19 14:43 09/05/19 14:43 Labs: Lab Results 09/05/19 09/05/1920 Range/Units 14:43 14:43 14:43 WBC 9.8 (4.5-11.0) X10^3/uL RBC 4.49 (4.0-5.2) X10^6/uL Hgb 13.7 (12.0-16.0) g/dL Hct 40.0 (36-46) % MCV 89.0 (80-100) fL MCH 30.6 (26-34) PG MCHC 34.4 (30-36) % RDW 13.2 (11.6-14.8) % Plt Count 250 (150-400) X10^3/uL Neut % (Auto) 67.2 (50-75) % Lymph % (Auto) 22.3 L (25-40) % [place] % (Auto) 7.3 (3-14) % Eos % (Auto) 2.1 (2-4) % Baso % (Auto) 1.1 (0-2) % Neut # (Auto) 6600 (1160-1345) /uL Lymph # (Auto) 2200 (8718-0369) /uL [place] # (Auto) 700 (0-900) /uL Eos # (Auto) 200 (0-450) /uL Baso # (Auto) 100 (0-100) /uL APTT (26.4-36.2) SECONDS D-Dimer 245 H (<230) ng/mL Sodium 140 (137-145) mmol/L Potassium 4.0 (3.4-5.1) mmol/L Chloride 108 H (98-107) mmol/L Carbon Dioxide 22 (22-32) mmol/L BUN 19 H (7-17) mg/dL Creatinine 1.04 (0.52-1.04) mg/dL Estimated GFR 51.4 L (>60) mL/min BUN/Creatinine Ratio 18.3 (6-22) Glucose 117 H (80-110) mg/dL Calcium 9.5 (8.4-10.2) mg/dL Total Bilirubin 0.5 (0.2-1.3) mg/dL AST 31 (14-36) IU/L ALT 33 (<35) IU/L Alkaline Phosphatase 121 (38-126) U/L Total Creatine Kinase 85 (30-135) U/L CK-MB (CK-2) TNP CK-MB (CK-2) Rel Index TNP Troponin I < 0.012 (0.01-0.034) ng/mL NT-Pro-B Natriuret Pep (<450) pg/mL Total Protein 7.5 (6.3-8.2) g/dL Albumin 4.4 (3.5-5.0) g/dL Globulin 3.1 (1.7-4.1) g/dL Albumin/Globulin Ratio 1.4 (1.0-2.8) Lipase 186 (23-300) U/L 09/05/19 09/05/19 09/05/19 Range/Units 14:43 18:45 19:15 WBC (4.5-11.0) X10^3/uL RBC (4.0-5.2) X10^6/uL Hgb (12.0-16.0) g/dL Hct (36-46) % MCV (80-100) fL MCH (26-34) PG MCHC (30-36) % RDW (11.6-14.8) % Plt Count (150-400) X10^3/uL Neut % (Auto) (50-75) % Lymph % (Auto) (25-40) % [place] % (Auto) (3-14) % Eos % (Auto) (2-4) % Baso % (Auto) (0-2) % Neut # (Auto) (6199-3765) /uL Lymph # (Auto) (4670-0663) /uL [place] # (Auto) (0-900) /uL Eos # (Auto) (0-450) /uL Baso # (Auto) (0-100) /uL APTT 29 D (26.4-36.2) SECONDS D-Dimer (<230) ng/mL Sodium (137-145) mmol/L Potassium (3.4-5.1) mmol/L Chloride (98-107) mmol/L Carbon Dioxide (22-32) mmol/L BUN (7-17) mg/dL Creatinine (0.52-1.04) mg/dL Estimated GFR (>60) mL/min BUN/Creatinine Ratio (6-22) Glucose (80-110) mg/dL Calcium (8.4-10.2) mg/dL Total Bilirubin (0.2-1.3) mg/dL AST (14-36) IU/L ALT (<35) IU/L Alkaline Phosphatase (38-126) U/L Total Creatine Kinase (30-135) U/L CK-MB (CK-2) CK-MB (CK-2) Rel Index Troponin I < 0.012 (0.01-0.034) ng/mL NT-Pro-B Natriuret Pep 37 (<450) pg/mL Total Protein (6.3-8.2) g/dL Albumin (3.5-5.0) g/dL Globulin (1.7-4.1) g/dL Albumin/Globulin Ratio (1.0-2.8) Lipase (23-300) U/L Point of Care Testing Glucose POC [address] scan - chest: Radiologist's Impression: Chart Viewer Diagnostics DATE TYPE STATUS AUTHOR Hx 09/05/19 17:27 Juan Parson 09/05/19 14:38 Reyes Hernandez 11/26/18 00:00 Zach Hansen 10/12/18 00:00 Juan Parson 04/05/18 15:48 Cm Albert 02/27/18 15:37 Reyes Hernandez 02/27/18 15:37 Reyes Hernandez 12/03/17 21:29 Cm Albert 12/03/17 18:58 Cm Albert Jodi D 79, F0 1940 [facility], [facility] ED R02 86.183kg Chest Pain Search Chart No Data to Display No Data to Display Today 20:00 Sadaf Calderón 79 F 1940 [place] [address] CT Scan Report Signed Patient: Sadaf Calderón#: [id number] : 3Acct:[id number] Age/Sex: 79 / FDate of Service: 09/05/19 Loc: ED Accession Number: [id number] Procedure: CT angio chest PE protocol Ordering Provider: Bowen Dickens D.O. PROCEDURE: CT ANGIO CHEST PE PROTOCOL INDICATIONS: SOB, weakness, exertional TECHNIQUE: After the administration of intravenous contrast, 2 mm thick sections acquired from the pulmonary apices to the posterior costophrenic angles. 3-dimensional maximum intensity projection (MIP) coronal and sagittal reformats were then acquired through the thorax. For radiation dose reduction, the following was used: automated exposure control, adjustment of mA and/or kV according to patient size. COMPARISON: [facility], CT, CT ANGIO CHEST PE PROTOCOL, 12/03/2017, 21:41. FINDINGS: Image quality: Excellent. Pulmonary arteries: Pulmonary arteries are normal in size, and demonstrate no intraluminal filling defects to suggest central pulmonary embolism. Lungs and pleura: Mild dependent atelectasis. Lungs otherwise clear. No focal consolidations. No pleural effusions or pneumothorax. Central and peripheral airways are patent. Mediastinum: Heart size is normal, without pericardial effusion. No m ediastinal or hilar adenopathy. Previously described prominent mediastinal and axillary lymph nodes are not as conspicuous on today's study. Thoracic aorta is normal in caliber and enhancement. Esophagus is normal in caliber. There is a small hiatal hernia. Bones and chest wall: No suspicious bony lesions. Ribs and thoracic spine appear intact throughout. No acute vertebral body compression fractures. Multilevel spondylitic changes throughout the imaged spine. Thyroid gland is unremarkable. No axillary or supraclavicular adenopathy. Abdomen: Visualized upper abdominal solid organs appear normal in the early arterial phase of enhancement. Status post cholecystectomy. IMPRESSION: 1. No acute pulmonary embolism identified. 2. Mild dependent atelectasis. Otherwise, no acute cardiopulmonary abnormalities or focal airspace disease. 3. Small hiatal hernia. 4. No evidence for thoracic aortic aneurysm or gross dissection. Dictated by: Juan Parson M.D. on 09/05/2019 at 18:11 Approved by: Juan Parson M.D. on 09/05/2019 at 18:23 Discharge Plan Departure Patient Disposition: [facility] Clinical Impression: Unstable angina pectoris Prescriptions: No Action amlodipine 2.5 mg tablet 2.5 mg PO DAILY RF: 0 losartan 25 mg tablet 25 mg PO DAILY RF: 0 hydrochlorothiazide 12.5 mg tablet 12.5 mg PO DAILY RF: 0 triamcinolone acetonide 0.1 % cream 1 applictn TOP BID Qty: 60 RF: 0 simvastatin 20 mg tablet 20 mg PO DAILY RF: 0 Victoza 3-Balbir 0.6 mg/0.1 mL (18 mg/3 mL) pen injector 0.6 mg SUBCUT DAILY RF: 0 Referrals: Neno Good MD [Primary Care Provider] -
[2019-09-05 15:17] LABS: Troponin I < 0.012 ng/mL (0.01-0.034)
[2019-09-05] MEDS: ASPIRIN 81 MG CHEW TAB 324 MG PO (15:33)
[2019-09-05] MEDS: SODIUM CHLORIDE 0.9% 1,000 ML 150 ML IV (15:34)
[2019-09-05 15:45] LABS: D Dimer 245 ng/mL (<230)
[2019-09-05 15:55] LABS: NT-proBNP (BNP-Adult 18+) 37 pg/mL (<450)
--- NOTE | 2019-09-05 16:02 | PC.NURSE ---
c/o shortness of breath, worse w/ exertion and chest pressure. No chest discomfort at this time. Has difficulty having conversation w/o getting short of breath. Denies fever. Has been exposed to person w/ covid. Also c/o light headed / dizzy feeling w/ word searching difficulties on and off. Currently not having any. No focal weakness. C/O generalized weakness.
--- NOTE | 2019-09-05 17:27 | DI.CT.S_ITS ---
PROCEDURE: CT ANGIO CHEST PE PROTOCOL INDICATIONS: SOB, weakness, exertional TECHNIQUE: After the administration of intravenous contrast, 2 mm thick sections acquired from the pulmonary apices to the posterior costophrenic angles. 3-dimensional maximum intensity projection (MIP) coronal and sagittal reformats were then acquired through the thorax. For radiation dose reduction, the following was used: automated exposure control, adjustment of mA and/or kV according to patient size. COMPARISON: [facility], CT, CT ANGIO CHEST PE PROTOCOL, 12/03/2017, 21:41. FINDINGS: Image quality: Excellent. Pulmonary arteries: Pulmonary arteries are normal in size, and demonstrate no intraluminal filling defects to suggest central pulmonary embolism. Lungs and pleura: Mild dependent atelectasis. Lungs otherwise clear. No focal consolidations. No pleural effusions or pneumothorax. Central and peripheral airways are patent. Mediastinum: Heart size is normal, without pericardial effusion. No mediastinal or hilar adenopathy. Previously described prominent mediastinal and axillary lymph nodes are not as conspicuous on today's study. Thoracic aorta is normal in caliber and enhancement. Esophagus is normal in caliber. There is a small hiatal hernia. Bones and chest wall: No suspicious bony lesions. Ribs and thoracic spine appear intact throughout. No acute vertebral body compression fractures. Multilevel spondylitic changes throughout the imaged spine. Thyroid gland is unremarkable. No axillary or supraclavicular adenopathy. Abdomen: Visualized upper abdominal solid organs appear normal in the early arterial phase of enhancement. Status post cholecystectomy. IMPRESSION: 1. No acute pulmonary embolism identified. 2. Mild dependent atelectasis. Otherwise, no acute cardiopulmonary abnormalities or focal airspace disease. 3. Small hiatal hernia. 4. No evidence for thoracic aortic aneurysm or gross dissection. Dictated by: Juan Parson M.D. on 09/05/2019 at 18:11 Approved by: Juan Parson M.D. on 09/05/2019 at 18:23
[2019-09-05] MEDS: NITROGLYCERIN 0.4 MG SL TAB SL ×2 (18:42→19:02)
[2019-09-05 19:19] LABS: Troponin I < 0.012 ng/mL (0.01-0.034)
[2019-09-05 19:22] LABS: PTT Partial Thromboplastin Tim 29 SECONDS (26.4-36.2)
[2019-09-05] MEDS: HEPARIN 5,000 UNIT/ML VIAL 5000 UNIT IV (19:46)
[2019-09-05] MEDS: HEPARIN DRIP 25,000 UNIT/500 ML IV.SOLN 20 UNIT IV (19:47)
[2019-09-05] MEDS: NITROGLYCERIN OINT 1 INCH/GM OINT...G. 0.5 INCH TOP (19:49)
[2019-09-08 06:11] LABS: COVID19 Sendout Not Detected (Not Detected)
--- NOTE | 2019-09-25 14:16 | PC.NURSE ---
Late entry: Heparin gtt infusing stopped for purposes of [facility] charting @ 2037. Continued during transport.
== END 2019-09-05 20:38 | disposition short-term general hospital (02) ==
PROVIDERS: Emergency Provider Emergency Medicine; PCP Internal Medicine
DX: I20.0 Unstable angina (principal); I10 Essential (primary) hypertension; E78.5 Hyperlipidemia, unspecified
CPT/HCPCS: 36415; 71045; 71275; 80053; 82550; 82962; 83690; 83880; 84484; 85025; 85379; 85730; 87635; 93005; 93010; 96361; 96365; 96375; 99285; J1644; Q9967

== ENCOUNTER → 2019-11-16 12:35 | Outpatient (CLI) | payer OTHER, SELFPAY | PROVIDERS: PCP Internal Medicine; Referring Provider Internal Medicine; Visit Provider Internal Medicine | DX: Z78.0 Asymptomatic menopausal state (principal); E11.9 Type 2 diabetes mellitus without complications; Z82.62 Family history of osteoporosis | CPT/HCPCS: 77080 ==

== ENCOUNTER → 2020-01-30 15:36 | Outpatient (ROUT) | payer OTHER, SELFPAY ==
[2020-01-30 15:59] LABS: Blood Urea Nitrogen 20 mg/dL (7-17); Calcium 9.7 mg/dL (8.4-10.2); Carbon Dioxide 25 mmol/L (22-32); Chloride 109 mmol/L (98-107); Estimated Glomerular Filt Rate 53.8 mL/min (>60); Glucose 125 mg/dL (80-110); HEMOLYSIS 16 (0-50); Potassium 4.1 mmol/L (3.4-5.1); Sodium 142 mmol/L (137-145)
== END ==
PROVIDERS: PCP Internal Medicine; Visit Provider Internal Medicine
DX: I10 Essential (primary) hypertension (principal)
CPT/HCPCS: 80048

== ENCOUNTER → 2020-02-01 13:47 | Outpatient (ROUT) | payer OTHER, SELFPAY ==
[2020-02-01 14:02] LABS: Add Manual Diff / Slide Review NO; Basophils Absolute Auto 100 /uL (0-100); Eosinophils Absolute Auto 200 /uL (0-450); Eosinophils Percent Auto 3.5 % (2-4); Hematocrit 41.2 % (36-46); Hemoglobin 13.7 g/dL (12.0-16.0); Lymphocytes Absolute Auto 1500 /uL (1100-4500); Lymphocytes Percent Auto 25.4 % (25-40); Mean Corpuscular HGB Conc 33.2 % (30-36); Mean Corpuscular Hemoglobin 30.2 PG (26-34); Mean Corpuscular Volume 90.8 fL (80-100); Monocytes Absolute Auto 500 /uL (0-900); Monocytes Percent Auto 9.1 % (3-14); Neutrophils Absolute Auto 3600 /uL (1500-7000); Platelet Count 206 X10^3/uL (150-400); Red Blood Cell Count 4.54 X10^6/uL (4.0-5.2); Red Cell Distribution Width 13.4 % (11.6-14.8)
[2020-02-01 14:25] LABS: Hemoglobin A1C% w Est Avg Glu 6.9 % (4.0-6.0)
[2020-02-01 14:32] LABS: TSH w/ Reflex to FT4 1.83 uIU/mL (0.47-4.68)
[2020-02-01 14:55] LABS: Vitamin B12 316 pg/mL (239-931)
== END ==
PROVIDERS: PCP Internal Medicine; Visit Provider Internal Medicine
DX: E03.9 Hypothyroidism, unspecified (principal); E11.22 Type 2 diabetes mellitus with diabetic chronic kidney disease; E53.8 Deficiency of other specified B group vitamins
CPT/HCPCS: 82607; 83036; 84443; 85025

== ENCOUNTER → 2020-03-01 06:31 | Outpatient (CLI) | payer OTHER, SELFPAY ==
--- NOTE | 2020-03-01 | DI.MRI.S_ITS ---
PROCEDURE: MR STROKE Pre- and post-contrast brain MRI, non-contrast brain MR angiogram, pre- and postcontrast neck MR angiogram INDICATIONS: Cerebrovascular disease, unspecified TECHNIQUE: Brain: Noncontrast axial T1 spin echo, axial T2 fast spin echo, sagittal and axial FLAIR, coronal T2 fast spin echo, axial gradient echo, axial diffusion and ADC through the brain. After the administration of contrast, axial 3D VIBE of the cranial vasculature and brain. Brain MRA: Non-contrast 3-D time of flight MR angiogram, with multiple hmiigfh-exfhvsbig-jdlmuhvkol (MIP) reformats performed. Neck MRA: Axial and sagittal TruFISP through the neck. Coronal dynamic MR angiogram during administration of contrast in the arterial and venous phases, with 3-dimenstional ifheuym-ynilxfeca-urmuwqvsjj (MIP) reformats constructed from subtraction images. COMPARISON: [facility], CT, CT HEAD WITHOUT CONTRAST, 09/06/2019, 18:19. [facility], CT, CT ANGIO CHEST PE PROTOCOL, 09/05/2019, 17:47. FINDINGS: Image quality: Excellent. BRAIN: CSF spaces: Ventricles are normal in size and shape. Basal cisterns are patent. No extra-axial fluid collections. Brain: No intracranial bleeds or mass effects. There is mild, diffuse cerebral volume loss. Chamorro-white matter interface is normal. Diffusion weighted images show no acute ischemic insults. Brainstem appears normal. Normal intravascular flow voids are present. No abnormal intracranial enhancement. Skull and face: Calvarial marrow signal is normal. Orbits appear normal. Sinuses: Sinuses and mastoids are clear. BRAIN MR ANGIOGRAM: Anterior circulation: Intracranial internal carotid arteries are normal in size and enhancement. The flow within the paired anterior cerebral arteries is normal and symmetric. The flow within the middle cerebral arteries is normal and symmetric. The anterior communicating artery is seen. No stenoses, occlusions, or aneurysms. Posterior circulation: The visualized portions of the vertebral arteries demonstrate normal caliber, and join to form a normal appearing basilar artery. The flow within the posterior cerebral arteries is normal and symmetric. No stenoses, occlusions, or aneurysms. NECK MR ANGIOGRAM: Carotids: Great vessels demonstrate a conventional anatomy as they arise from the aortic arch. The origins of the common carotid arteries appear patent. The calibers and courses of both common carotid arteries are normal. The bifurcation regions appear normal bilaterally. The internal carotid arteries demonstrate normal course and caliber. Posterior circulation: The origins of the vertebral arteries appear patent. More superior portions of both vertebral arteries demonstrate normal course and caliber, and join to form a normal appearing basilar artery. Miscellaneous: Subclavian arteries appear patent. Pre-contrast images through the neck show no soft tissue abnormalities. IMPRESSION: BRAIN MRI: 1. No acute intracranial disease process. 2. No areas of acute or chronic infarction. 3. No abnormal intracranial mass or suspicious postcontrast enhancement. BRAIN MR ANGIOGRAM: Negative examination. NECK MR ANGIOGRAM: Negative examination. Dictated by: Saba Lloyd MD, PhD on 03/01/2020 at 10:00 Approved by: Saba Lloyd MD, PhD on 03/01/2020 at 10:06
== END ==
PROVIDERS: PCP Internal Medicine; Referring Provider Internal Medicine; Visit Provider Internal Medicine
DX: I67.9 Cerebrovascular disease, unspecified (principal)
CPT/HCPCS: 70548; 70553

== ENCOUNTER → 2020-03-13 15:07 | Outpatient (ROUT) | payer OTHER, SELFPAY ==
[2020-03-13 15:42] LABS: Alanine Aminotransferase 37 IU/L (<35); Albumin 4.1 g/dL (3.5-5.0); Albumin Globulin Ratio 1.4 (1.0-2.8); Alkaline Phosphatase 102 U/L (38-126); Aspartate Aminotransferase 31 IU/L (14-36); BUN Creatinine Ratio 19.6 (6-22); Bilirubin Total 0.9 mg/dL (0.2-1.3); Blood Urea Nitrogen 21 mg/dL (7-17); Calcium 9.5 mg/dL (8.4-10.2); Carbon Dioxide 26 mmol/L (22-32); Chloride 107 mmol/L (98-107); Estimated Glomerular Filt Rate 49.7 mL/min (>60); Globulin 2.9 g/dL (1.7-4.1); Glucose 142 mg/dL (80-110); HEMOLYSIS 16 (0-50); Potassium 3.8 mmol/L (3.4-5.1); Sodium 139 mmol/L (137-145)
== END ==
PROVIDERS: PCP Internal Medicine; Visit Provider Internal Medicine
DX: I10 Essential (primary) hypertension (principal)
CPT/HCPCS: 80053

== ENCOUNTER → 2020-08-09 08:18 | Outpatient (CLI) | payer MEDICARE, SELFPAY ==
[2020-08-09 09:41] LABS: Hemoglobin A1C% w Est Avg Glu 7.9 % (4.0-6.0)
[2020-08-09 10:41] LABS: Alanine Aminotransferase 80 IU/L (<35); Albumin 4.1 g/dL (3.5-5.0); Albumin Globulin Ratio 1.5 (1.0-2.8); Alkaline Phosphatase 97 U/L (38-126); Aspartate Aminotransferase 82 IU/L (14-36); BUN Creatinine Ratio 22.6 (6-22); Bilirubin Total 0.7 mg/dL (0.2-1.3); Blood Urea Nitrogen 19 mg/dL (7-17); Calcium 9.8 mg/dL (8.4-10.2); Carbon Dioxide 23 mmol/L (22-32); Chloride 105 mmol/L (98-107); Cholesterol 162 mg/dL (140-199); Estimated Glomerular Filt Rate > 60.0 mL/min (>60); Globulin 2.7 g/dL (1.7-4.1); Glucose 180 mg/dL (80-110); HDL Cholesterol 49 mg/dL (40-60); HEMOLYSIS < 15 (0-50); LDL Cholesterol Calculated 74 mg/dL (<100); Potassium 4.2 mmol/L (3.4-5.1); Sodium 138 mmol/L (137-145); Total Protein 6.8 g/dL (6.3-8.2); Triglycerides 196 mg/dL (35-150)
== END ==
PROVIDERS: PCP Internal Medicine; Referring Provider Internal Medicine; Visit Provider Internal Medicine
DX: E11.9 Type 2 diabetes mellitus without complications (principal); I10 Essential (primary) hypertension
CPT/HCPCS: 36415; 80053; 80061; 83036

== ENCOUNTER → 2020-10-21 16:32 | Outpatient (CLI) | payer MEDICARE, SELFPAY ==
--- NOTE | 2020-10-21 16:33 | DI.RAD.S_ITS ---
PROCEDURE: XR FOOT LT MIN 3V INDICATIONS: Left foot pain TECHNIQUE: 3 views of the foot were acquired. COMPARISON: None. FINDINGS: There is no fracture or dislocation. Moderate osteoarthritic changes in the left 1st MTP with joint space narrowing, articular surface flattening, and marginal osteophytosis as well as some subchondral sclerosis. Mild osteoarthritic changes in the interphalangeal joints. Small calcaneal enthesophyte along the plantar aspect without adjacent soft tissue thickening. 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 Dictated by: Carlos Hurst M.D. on 10/21/2020 at 17:01 Approved by: Carlos Hurst M.D. on 10/21/2020 at 17:02
== END ==
PROVIDERS: PCP Internal Medicine; Referring Provider Internal Medicine; Visit Provider Internal Medicine
DX: M79.672 Pain in left foot (principal); M10.9 Gout, unspecified; M19.072 Primary osteoarthritis, left ankle and foot
CPT/HCPCS: 73630

== ENCOUNTER 2020-11-28 16:08 | Emergency (ER) | payer MEDICARE, SELFPAY ==
[2020-11-28] VITALS (14 sets, daily range): BP systolic 126–156; BP diastolic 60–91; PULSE 69–146; RESP 18–34; TEMP 36.9; O2SAT 85–97; BMI 32.1
--- NOTE | 2020-11-28 16:23 | DI.RAD.S_ITS ---
PROCEDURE: XR CHEST 1V INDICATIONS: chest pain TECHNIQUE: One view of the chest was acquired. COMPARISON: [facility], CR, XR CHEST 1V, 09/05/2019, 15:19. FINDINGS: Surgical changes and devices: None. Lungs and pleura: Lungs are clear. No pleural effusions or pneumothorax. Mediastinum: Mediastinal contours appear normal. Heart size is normal. Bones and chest wall: No suspicious bony lesions. Overlying soft tissues appear unremarkable. IMPRESSION: No acute cardiopulmonary disease process. Dictated by: Saba Lloyd MD, PhD on 11/28/2020 at 16:51 Approved by: Saba Lloyd MD, PhD on 11/28/2020 at 16:52
--- NOTE | 2020-11-28 16:43 | ED.CHESTPAIN ---
HPI - Chest Pain <Ac Forrest, DO - Last Filed: 12/02/20 07:11> General Chief Complaint: Chest Pain Stated Complaint: SOB RAISING OF THE HEART Time Seen by Provider: 11/28/20 16:24 Source: patient Mode of arrival: Wheelchair Limitations: no limitations History of Present Illness HPI narrative: 80-year-old female who is here in the emergency department for evaluation of approximately 4-6 weeks of progressively worsening shortness of breath with exertion, feeling of racing heart, anxiety, fatigue. She states that the reason that she is here in the emergency department today is because she had some friends who came over this morning and noticed that she was having quite a bit of shortness of breath with very small amounts of exertion. They convinced her to come in to be evaluated. She states that at the time of my evaluation she is feeling somewhat better. However this morning she felt worse than what she normally does. She states she cannot climb a flight of stairs. She cannot walk out to her mailbox. She does lay flat at night. No lower extremity swelling. No chest pain. Has had history of anxiety. Related Data Home Medications Medication Instructions Recorded Confirmed amlodipine 2.5 mg tablet 2.5 mg PO DAILY 12/03/17 09/26/20 simvastatin 20 mg tablet 20 mg PO DAILY 01/23/19 09/26/20 liraglutide 0.6 mg/0.1 mL (18 mg/3 1.2 mg SUBCUT DAILY 07/02/20 09/26/20 mL) subcutaneous pen injector (Victoza 2-Balbir) Previous Rx's Medication Instructions Recorded alprazolam 0.25 mg tablet 0.125 mg PO TID PRN #30 tab 07/02/20 hydrochlorothiazide 12.5 mg tablet 12.5 mg PO DAILY #90 tab 07/02/20 hydrocortisone acetate 25 mg 25 mg PA BID #24 ea 07/02/20 rectal suppository (Anusol-HC) bupropion HCl 75 mg tablet 75 mg PO DAILY #30 tab 08/13/20 losartan 25 mg tablet 25 mg PO DAILY #90 tab 09/10/20 clorazepate dipotassium 3.75 mg 1.875 mg PO BEDTIME #30 tab 09/26/20 tablet clobetasol 0.05 % topical ointment 1 g TOPICAL DAILY #30 g 09/27/20 conjugated estrogens 0.625 mg/gram 0.625 mg VAGINAL DAILY #30 g 09/27/20 vaginal cream nystatin 100,000 unit/mL oral 4 ml PO QID 10 Days #160 ml 11/16/20 suspension Allergies Allergy/AdvReac Type Severity Reaction Status Date / Time Opioids - Morphine Analogues Allergy Verified 10/21/20 15:43 Review of Systems <Ac Forrest DO - Last Filed: 12/02/20 07:11> Constitutional Constitutional: Denies fever(s) and Denies headache(s) ENT Ears, Nose, Mouth, and Throat: Denies headache(s) Cardiovascular Cardiovascular: Denies chest pain, Reports dyspnea and Reports dyspnea on exertion Respiratory Respiratory: Reports as per HPI, Reports dyspnea and Reports dyspnea on exertion Gastrointestinal Gastrointestinal: Reports system reviewed and no additional complaints, except as documented Musculoskeletal Musculoskeletal: Reports system reviewed and no additional complaints, except as documented Integumentary/Breasts Skin/Breast: Reports system reviewed and no additional complaints, except as documented Neurologic Neurologic: Denies headache(s) Hematologic/Lymphatic On Anticoagulants: No Allergic/Immunologic Allergic/Immunologic: Reports system reviewed and no additional complaints, except as documented Patient History <Ac Forrest DO - Last Filed: 12/02/20 07:11> Medical History Bunion, left foot Cataracts, bilateral Chicken pox Chronic back pain Diabetes mellitus type 2, noninsulin dependent FHx: breast cancer in first degree relative Generalized anxiety disorder GERD (gastroesophageal reflux disease) Gout H/O vaginal delivery History of esophageal stricture History of renal insufficiency HTN (hypertension) Lichen sclerosus Measles Mixed hyperlipidemia Mumps Obstructive sleep apnea Restless leg syndrome Rosacea Vertigo Vulvar lesion Surgical History (Updated 09/20/20 @ 17:29 by Belinda Wells MD) Anesthesia History of lumbar spinal fusion History of total abdominal hysterectomy S/P appendectomy Status post total hip replacement, bilateral Family History Mother Breast cancer History of heart disease Sister Breast cancer Family/Other Breast cancer Father History of heart disease Social History marital status: household members: spouse (with dementia) lives independently: Yes caregiver/support person: No education level: master's degree (clinical psychologist, retired) Smoking Status: Never smoker alcohol intake: never Smoking Status: Never smoker alcohol intake frequency: 0-2 drinks per day Substance Use Type: does not use Exam <Ac Forrest DO - Last Filed: 12/02/20 07:11> Initial Vital Signs Initial Vital Signs: Vital Signs Pulse Rate 75 11/28/20 16:21 Respiratory Rate 18 11/28/20 16:21 Blood Pressure 139/67 11/28/20 16:21 Pulse Oximetry 95 11/28/20 16:21 Const General: cooperative, healthy appearing and comfortable [facility] Head: normal to inspection Eyes General: appearance normal, both eyes and all related structures Resp Effort & Inspection: normal respiratory effort Auscultation: clear to auscultation bilaterally Cardio Rate: regular rate Rhythm: regular rhythm GI Inspection: normal to inspection Palpation: soft Skin General: no rashes or lesions noted Neuro General: patient alert, patient awake and moves all extremities Extrem General: normal to inspection and capillary refill normal Psych Appearance: grossly normal and well kempt Other: Anxious <Amaya Pressley DO - Last Filed: 11/29/20 03:07> Initial Vital Signs Initial Vital Signs: Vital Signs Pulse Rate 75 11/28/20 16:21 Respiratory Rate 18 11/28/20 16:21 Blood Pressure 139/67 11/28/20 16:21 Pulse Oximetry 95 11/28/20 16:21 Scores <Ac Forrest DO - Last Filed: 12/02/20 07:11> GCS Nancy coma scale eye opening: Spontaneous [place] coma scale verbal response: Orientated Nancy coma scale motor response: Obey commands [place] coma scale total score: 15 <Amaya Pressley DO - Last Filed: 11/29/20 03:07> GCS [place] coma scale total score: 15 Course <Ac Forrest DO - Last Filed: 12/02/20 07:11> Orders Ordered: Discontinued Medications Albuterol (Albuterol 2.5 Mg/3 Ml Neb (Adult)) 2.5 mg INH NOW ONE Stop: 11/28/20 18:52 Last Admin: 11/28/20 19:31 Dose: 2.5 mg Documented by: DAVID Vital Signs Vital signs: Vital Signs - 8 hr 11/28/20 19:10 11/28/20 19:30 11/28/20 19:39 Pulse Rate 70 71 69 Respiratory Rate 34 H 20 22 Blood Pressure Pulse Oximetry 85 L 96 96 11/28/20 20:00 11/28/20 20:30 11/28/20 20:36 Pulse Rate 73 73 Respiratory Rate 20 Blood Pressure 141/91 H Pulse Oximetry 96 97 <Amaya Pressley DO - Last Filed: 11/29/20 03:07> Orders Ordered: Discontinued Medications Albuterol (Albuterol 2.5 Mg/3 Ml Neb (Adult)) 2.5 mg INH NOW ONE Stop: 11/28/20 18:52 Last Admin: 11/28/20 19:31 Dose: 2.5 mg Documented by: DAVID Vital Signs Vital signs: Vital Signs - 8 hr 11/28/20 19:10 11/28/20 19:30 11/28/20 19:39 Pulse Rate 70 71 69 Respiratory Rate 34 H 20 22 Blood Pressure Pulse Oximetry 85 L 96 96 11/28/20 20:00 11/28/20 20:30 11/28/20 20:36 Pulse Rate 73 73 Respiratory Rate 20 Blood Pressure 141/91 H Pulse Oximetry 96 97 MDM - Chest Pain <Ac Forrest DO - Last Filed: 12/02/20 07:11> Medical Records Data Attestation: I reviewed the patient's medical records. Lab Data Attestation: I reviewed the patient's lab results. Result diagrams: 11/28/20 16:45 11/28/20 16:45 Labs: Lab Results 11/28/20 11/28/20 11/28/20 Range/Units 16:45 16:45 16:45 WBC 9.1 (4.5-11.0) X10^3/uL RBC 4.38 (4.0-5.2) X10^6/uL Hgb 13.6 (12.0-16.0) g/dL Hct 39.8 (36-46) % MCV 91.0 (80-100) fL MCH 31.1 (26-34) PG MCHC 34.2 (30-36) % RDW 13.1 (11.6-14.8) % Plt Count 238 (150-400) X10^3/uL Neut % (Auto) 65.9 (50-75) % Lymph % (Auto) 22.9 L (25-40) % [place] % (Auto) 8.0 (3-14) % Eos % (Auto) 2.0 (2-4) % Baso % (Auto) 1.2 (0-2) % Neut # (Auto) 6000 (4298-3365) /uL Lymph # (Auto) 2100 (0132-5341) /uL [place] # (Auto) 700 (0-900) /uL Eos # (Auto) 200 (0-450) /uL Baso # (Auto) 100 (0-100) /uL D-Dimer (<230) ng/mL Sodium 141 (137-145) mmol/L Potassium 4.2 (3.4-5.1) mmol/L Chloride 106 (98-107) mmol/L Carbon Dioxide 23 (22-32) mmol/L BUN 19 H (7-17) mg/dL Creatinine 1.07 H (0.52-1.04) mg/dL Estimated GFR 49.6 L (>60) mL/min BUN/Creatinine Ratio 17.8 (6-22) Glucose 187 H (80-110) mg/dL Calcium 9.5 (8.4-10.2) mg/dL Total Bilirubin 0.5 (0.2-1.3) mg/dL AST 45 H (14-36) IU/L ALT 49 H (<35) IU/L Alkaline Phosphatase 86 (38-126) U/L Total Creatine Kinase 93 (30-135) U/L CK-MB (CK-2) TNP CK-MB (CK-2) Rel Index TNP Troponin I < 0.012 (0.01-0.034) ng/mL NT-Pro-B Natriuret Pep 57 (<450) pg/mL Total Protein 7.2 (6.3-8.2) g/dL Albumin 4.2 (3.5-5.0) g/dL Globulin 3.0 (1.7-4.1) g/dL Albumin/Globulin Ratio 1.4 (1.0-2.8) Lipase 213 (23-300) U/L SARS-CoV-2 (PCR) (Negative) 11/28/20 11/28/20 11/28/20 Range/Units 16:57 19:02 19:02 WBC (4.5-11.0) X10^3/uL RBC (4.0-5.2) X10^6/uL Hgb (12.0-16.0) g/dL Hct (36-46) % MCV (80-100) fL MCH (26-34) PG MCHC (30-36) % RDW (11.6-14.8) % Plt Count (150-400) X10^3/uL Neut % (Auto) (50-75) % Lymph % (Auto) (25-40) % [place] % (Auto) (3-14) % Eos % (Auto) (2-4) % Baso % (Auto) (0-2) % Neut # (Auto) (1441-9220) /uL Lymph # (Auto) (4482-7932) /uL [place] # (Auto) (0-900) /uL Eos # (Auto) (0-450) /uL Baso # (Auto) (0-100) /uL D-Dimer 256 H (<230) ng/mL Sodium (137-145) mmol/L Potassium (3.4-5.1) mmol/L Chloride (98-107) mmol/L Carbon Dioxide (22-32) mmol/L BUN (7-17) mg/dL Creatinine (0.52-1.04) mg/dL Estimated GFR (>60) mL/min BUN/Creatinine Ratio (6-22) Glucose (80-110) mg/dL Calcium (8.4-10.2) mg/dL Total Bilirubin (0.2-1.3) mg/dL AST (14-36) IU/L ALT (<35) IU/L Alkaline Phosphatase (38-126) U/L Total Creatine Kinase 77 (30-135) U/L CK-MB (CK-2) TNP CK-MB (CK-2) Rel Index TNP Troponin I < 0.012 (0.01-0.034) ng/mL NT-Pro-B Natriuret Pep (<450) pg/mL Total Protein (6.3-8.2) g/dL Albumin (3.5-5.0) g/dL Globulin (1.7-4.1) g/dL Albumin/Globulin Ratio (1.0-2.8) Lipase (23-300) U/L SARS-CoV-2 (PCR) Negative (Negative) Imaging Data Chest x-ray: Radiologist's Impression: [place] [id number] [place] [id number] ReportSigned Patient: Krystin Calderón#: [id number]: 3Acct:[id number]/Sex: 80 / FDate of Service: 11/28/20Loc: EDAccession Number: [id number] Procedure: XR chest 1V Ordering Provider: Ac Forrest D.O. PROCEDURE: XR CHEST 1V INDICATIONS: chest pain TECHNIQUE: One view of the chest was acquired. COMPARISON: [facility], , XR CHEST 1V, 09/05/2019, 15:19. FINDINGS: Surgical changes and devices: None. Lungs and pleura: Lungs are clear. No pleural effusions or pneumothorax. Mediastinum: Mediastinal contours appear normal. Heart size is normal. Bones and chest wall: No suspicious bony lesions. Overlying soft tissues appear unremarkable. IMPRESSION: No acute cardiopulmonary disease process. Dictated by: Saba Lloyd MD, PhD on 11/28/2020 at 16:51 Approved by: Saba Lloyd MD, PhD on 11/28/2020 at 16:52 ECG Data Attestation: I personally reviewed and interpreted this ECG as follows: Prior ECG tracings: available for review Interpretation: Sinus rhythm Ventricular rate of 73 Normal axis Normal QRS Normal QTC No ST T wave changes In EKG that is dated at the same time when she was seen here in the emergency department in August of 2019 has a name of Sadaf Calderón has a very similar appearance to today's EKG. Patient does go by the name of Sadaf as well and I assume that this is her prior EKG. [facility] Narrative Medical decision making narrative: Patient has had dyspnea on exertion for the past 4-6 weeks. Denies chest pain. No lower extremity swelling. She can lie flat at night. Does have a history of anxiety. EKG is unremarkable. No fevers. Chest x-ray is unremarkable. Troponin is negative. BNP negative. Patient clinically not in heart failure. Repeat troponin ordered. Care turned over to Dr. Pressley <Amaya Pressley DO - Last Filed: 11/29/20 03:07> Lab Data Labs: Lab Results 11/28/20 11/28/20 11/28/20 Range/Units 16:45 16:45 16:45 WBC 9.1 (4.5-11.0) X10^3/uL RBC 4.38 (4.0-5.2) X10^6/uL Hgb 13.6 (12.0-16.0) g/dL Hct 39.8 (36-46) % MCV 91.0 (80-100) fL MCH 31.1 (26-34) PG MCHC 34.2 (30-36) % RDW 13.1 (11.6-14.8) % Plt Count 238 (150-400) X10^3/uL Neut % (Auto) 65.9 (50-75) % Lymph % (Auto) 22.9 L (25-40) % [place] % (Auto) 8.0 (3-14) % Eos % (Auto) 2.0 (2-4) % Baso % (Auto) 1.2 (0-2) % Neut # (Auto) 6000 (0387-3251) /uL Lymph # (Auto) 2100 (1694-5657) /uL [place] # (Auto) 700 (0-900) /uL Eos # (Auto) 200 (0-450) /uL Baso # (Auto) 100 (0-100) /uL D-Dimer (<230) ng/mL Sodium 141 (137-145) mmol/L Potassium 4.2 (3.4-5.1) mmol/L Chloride 106 (98-107) mmol/L Carbon Dioxide 23 (22-32) mmol/L BUN 19 H (7-17) mg/dL Creatinine 1.07 H (0.52-1.04) mg/dL Estimated GFR 49.6 L (>60) mL/min BUN/Creatinine Ratio 17.8 (6-22) Glucose 187 H (80-110) mg/dL Calcium 9.5 (8.4-10.2) mg/dL Total Bilirubin 0.5 (0.2-1.3) mg/dL AST 45 H (14-36) IU/L ALT 49 H (<35) IU/L Alkaline Phosphatase 86 (38-126) U/L Total Creatine Kinase 93 (30-135) U/L CK-MB (CK-2) TNP CK-MB (CK-2) Rel Index TNP Troponin I < 0.012 (0.01-0.034) ng/mL NT-Pro-B Natriuret Pep 57 (<450) pg/mL Total Protein 7.2 (6.3-8.2) g/dL Albumin 4.2 (3.5-5.0) g/dL Globulin 3.0 (1.7-4.1) g/dL Albumin/Globulin Ratio 1.4 (1.0-2.8) Lipase 213 (23-300) U/L SARS-CoV-2 (PCR) (Negative) 11/28/20 11/28/20 11/28/20 Range/Units 16:57 19:02 19:02 WBC (4.5-11.0) X10^3/uL RBC (4.0-5.2) X10^6/uL Hgb (12.0-16.0) g/dL Hct (36-46) % MCV (80-100) fL MCH (26-34) PG MCHC (30-36) % RDW (11.6-14.8) % Plt Count (150-400) X10^3/uL Neut % (Auto) (50-75) % Lymph % (Auto) (25-40) % [place] % (Auto) (3-14) % Eos % (Auto) (2-4) % Baso % (Auto) (0-2) % Neut # (Auto) (5230-6204) /uL Lymph # (Auto) (2075-8189) /uL [place] # (Auto) (0-900) /uL Eos # (Auto) (0-450) /uL Baso # (Auto) (0-100) /uL D-Dimer 256 H (<230) ng/mL Sodium (137-145) mmol/L Potassium (3.4-5.1) mmol/L Chloride (98-107) mmol/L Carbon Dioxide (22-32) mmol/L BUN (7-17) mg/dL Creatinine (0.52-1.04) mg/dL Estimated GFR (>60) mL/min BUN/Creatinine Ratio (6-22) Glucose (80-110) mg/dL Calcium (8.4-10.2) mg/dL Total Bilirubin (0.2-1.3) mg/dL AST (14-36) IU/L ALT (<35) IU/L Alkaline Phosphatase (38-126) U/L Total Creatine Kinase 77 (30-135) U/L CK-MB (CK-2) TNP CK-MB (CK-2) Rel Index TNP Troponin I < 0.012 (0.01-0.034) ng/mL NT-Pro-B Natriuret Pep (<450) pg/mL Total Protein (6.3-8.2) g/dL Albumin (3.5-5.0) g/dL Globulin (1.7-4.1) g/dL Albumin/Globulin Ratio (1.0-2.8) Lipase (23-300) U/L SARS-CoV-2 (PCR) Negative (Negative) Imaging Data CT scan - chest: Radiologist's Impression: PROCEDURE: CT ANGIO CHEST PE PROTOCOL INDICATIONS: sob for weeks TECHNIQUE: After the administration of intravenous contrast, 2 mm thick sections acquired from the pulmonary apices to the posterior costophrenic angles. 3-dimensional maximum intensity projection (MIP) coronal and sagittal reformats were then acquired through the thorax. For radiation dose reduction, the following was used: automated exposure control, adjustment of mA and/or kV according to patient size. COMPARISON: [facility], CT, CT ANGIO CHEST PE PROTOCOL, 09/05/2019, 17:47. FINDINGS: Image quality: Excellent. Lungs and pleura: No acute air space opacities. No pleural effusions or pneumothorax. Central and peripheral airways are patent and normal in caliber. Mediastinum: Heart size is normal. No pericardial effusion. No mediastinal adenopathy by size criteria. Thoracic aorta and central pulmonary arteries are normal in size. Esophagus is normal in caliber. There is a small hiatal hernia. Bones and chest wall: Degenerative changes with no focal abnormality. No suspicious bony lesions. No vertebral body compression fractures. No axillary or supraclavicular adenopathy by size criteria. Thyroid gland is normal. Abdomen: Limited visualization of the upper abdomen shows no acute abnormality. IMPRESSION: 1. No acute pulmonary embolism. 2. No acute abnormality of the chest. Dictated by: Jorge Faulkner M.D. on 11/28/2020 at 19:27 Approved by: Jorge Faulkner M.D. on 11/28/2020 at 19:34 MDM Narrative Medical decision making narrative: Patient has had dyspnea on exertion for the past 4-6 weeks. Denies chest pain. No lower extremity swelling. She can lie flat at night. Does have a history of anxiety. EKG is unremarkable. No fevers. Chest x-ray is unremarkable. Troponin is negative. BNP negative. Patient clinically not in heart failure. Repeat troponin ordered. Care turned over to Dr. Mary Ann PRESSLEY I have seen and evaluated patient myself and an independent exam. Patient just gotten up and use the restroom she was visibly tachypneic. Lungs were clear no wheezing albuterol was ordered which did seem to help some. D-dimer and PE study ordered. Both are negative she has 2- troponins. She states that the symptoms have been ongoing for number weeks she did not notice them to be any worse today but some an old friend who noticed that she was short of breath. She says she gets short of breath every time she does something cooking cleaning walking. She also has a lot of outside stressors at home taking care of an ill and others. I discussed with patient staying in hospital versus going home for stress test. Patient states that her symptoms really are not any worse today. I discussed with her PCP Dr. Waite who will set up an outpatient stress test soon as possible hopefully within the next week. I encouraged patient to return to the emergency department if any time she feels her symptoms have worsened. She understands and agrees. I discussed all findings with the patient, Education has been performed regarding treatment plan, diagnosis, warning signs and symptoms and all concerns have been addressed. Verbally agree with and understood all of the above. Discharge Plan Departure Patient Disposition: Home Clinical Impression: Atypical chest pain Instructions: DI for Atypical Chest Pain Activity Restrictions/Additional Instructions: *You have been diagnosed with atypical chest pain *What to do: At this time your testing in the emergency department is overall reassuring however if symptoms are still concerning and he still need more testing on your heart. I discussed with her primary care provider Dr. Waite who will help schedule you stress test as soon as possible probably next week. However if your symptoms are worsening it is imperative that he return to the emergency department as soon as possible, preferably by 911 *Continue to take medications as directed *Follow up with your primary care provider in 2-3 days *Return to ER if you should have worsening shortness of breath, chest pain palpitations or any new, worsening or concerning symptoms Prescriptions: No Action nystatin 100,000 unit/mL suspension 4 ml PO QID 10 Days Qty: 160 RF: 1 amlodipine 2.5 mg tablet 2.5 mg PO DAILY RF: 0 losartan 25 mg tablet 25 mg PO DAILY Qty: 90 RF: 1 clobetasol 0.05 % ointment 1 g topical DAILY Qty: 30 RF: 2 conjugated estrogens 0.625 mg/gram cream 0.625 mg vaginal DAILY Qty: 30 RF: 2 bupropion HCl 75 mg tablet 75 mg PO DAILY Qty: 30 RF: 3 clorazepate dipotassium 3.75 mg tablet 1.875 mg PO BEDTIME Qty: 30 RF: 3 Victoza 2-Balbir 0.6 mg/0.1 mL (18 mg/3 mL) pen injector 1.2 mg SUBCUT DAILY RF: 0 hydrochlorothiazide 12.5 mg tablet 12.5 mg PO DAILY Qty: 90 RF: 3 alprazolam 0.25 mg tablet 0.125 mg PO TID PRN (Reason: anxiety) Qty: 30 RF: 0 hydrocortisone acetate [Anusol-HC] 25 mg suppository 25 mg PA BID Qty: 24 RF: 1 simvastatin 20 mg tablet 20 mg PO DAILY RF: 0 Referrals: Gabriel Waite MD [Primary Care Provider] -
[2020-11-28 17:00] LABS: Add Manual Diff / Slide Review NO; Basophils Absolute Auto 100 /uL (0-100); Basophils Percent Auto 1.2 % (0-2); Eosinophils Absolute Auto 200 /uL (0-450); Hematocrit 39.8 % (36-46); Hemoglobin 13.6 g/dL (12.0-16.0); Lymphocytes Absolute Auto 2100 /uL (1100-4500); Lymphocytes Percent Auto 22.9 % (25-40); Mean Corpuscular HGB Conc 34.2 % (30-36); Mean Corpuscular Hemoglobin 31.1 PG (26-34); Monocytes Absolute Auto 700 /uL (0-900); Neutrophils Absolute Auto 6000 /uL (1500-7000); Neutrophils Percent Auto 65.9 % (50-75); Platelet Count 238 X10^3/uL (150-400); Red Blood Cell Count 4.38 X10^6/uL (4.0-5.2); Red Cell Distribution Width 13.1 % (11.6-14.8); White Blood Cell Count 9.1 X10^3/uL (4.5-11.0)
[2020-11-28 17:09] LABS: Alanine Aminotransferase 49 IU/L (<35); Albumin 4.2 g/dL (3.5-5.0); Albumin Globulin Ratio 1.4 (1.0-2.8); Alkaline Phosphatase 86 U/L (38-126); Aspartate Aminotransferase 45 IU/L (14-36); BUN Creatinine Ratio 17.8 (6-22); Bilirubin Total 0.5 mg/dL (0.2-1.3); Blood Urea Nitrogen 19 mg/dL (7-17); Calcium 9.5 mg/dL (8.4-10.2); Carbon Dioxide 23 mmol/L (22-32); Chloride 106 mmol/L (98-107); Creatine Kinase 93 U/L (30-135); Estimated Glomerular Filt Rate 49.6 mL/min (>60); Glucose 187 mg/dL (80-110); Lipase 213 U/L (23-300); Sodium 141 mmol/L (137-145); Total Protein 7.2 g/dL (6.3-8.2)
[2020-11-28 17:13] LABS: HEMOLYSIS 76 (0-50); Potassium 4.2 mmol/L (3.4-5.1)
[2020-11-28 17:18] LABS: NT-proBNP (BNP-Adult 18+) 57 pg/mL (<450)
[2020-11-28 17:20] LABS: Troponin I < 0.012 ng/mL (0.01-0.034)
[2020-11-28 18:06] LABS: COVID19 - ADMIT (NP swab/PCR) Negative (Negative)
--- NOTE | 2020-11-28 18:51 | DI.CT.S_ITS ---
PROCEDURE: CT ANGIO CHEST PE PROTOCOL INDICATIONS: sob for weeks TECHNIQUE: After the administration of intravenous contrast, 2 mm thick sections acquired from the pulmonary apices to the posterior costophrenic angles. 3-dimensional maximum intensity projection (MIP) coronal and sagittal reformats were then acquired through the thorax. For radiation dose reduction, the following was used: automated exposure control, adjustment of mA and/or kV according to patient size. COMPARISON: [facility], CT, CT ANGIO CHEST PE PROTOCOL, 09/05/2019, 17:47. FINDINGS: Image quality: Excellent. Lungs and pleura: No acute air space opacities. No pleural effusions or pneumothorax. Central and peripheral airways are patent and normal in caliber. Mediastinum: Heart size is normal. No pericardial effusion. No mediastinal adenopathy by size criteria. Thoracic aorta and central pulmonary arteries are normal in size. Esophagus is normal in caliber. There is a small hiatal hernia. Bones and chest wall: Degenerative changes with no focal abnormality. No suspicious bony lesions. No vertebral body compression fractures. No axillary or supraclavicular adenopathy by size criteria. Thyroid gland is normal. Abdomen: Limited visualization of the upper abdomen shows no acute abnormality. IMPRESSION: 1. No acute pulmonary embolism. 2. No acute abnormality of the chest. Dictated by: Jorge Faulkner M.D. on 11/28/2020 at 19:27 Approved by: Jorge Faulkner M.D. on 11/28/2020 at 19:34
[2020-11-28 19:17] LABS: D Dimer 256 ng/mL (<230)
[2020-11-28 19:26] LABS: Creatine Kinase 77 U/L (30-135)
[2020-11-28] MEDS: ALBUTEROL 2.5 MG/3 ML NEB (ADULT) INH (19:31)
[2020-11-28 19:39] LABS: Troponin I < 0.012 ng/mL (0.01-0.034)
== END 2020-11-28 20:36 | disposition home or self-care (01) ==
PROVIDERS: Emergency Medicine; Emergency Provider Emergency Medicine; PCP Internal Medicine
DX: R07.89 Other chest pain (principal); R06.00 Dyspnea, unspecified; Z20.822 Contact with and (suspected) exposure to COVID-19
CPT/HCPCS: 36415; 71045; 71275; 80053; 82550; 83690; 83880; 84484; 85025; 85379; 87635; 93005; 93010; 94640; 99284; C9803; J7613; Q9967

== ENCOUNTER → 2020-12-16 10:00 | Outpatient (CLI) | payer MEDICARE, SELFPAY ==
[2020-12-16 12:34] LABS: COVID19 -Nasal RAPID Negative (Negative)
== END ==
PROVIDERS: PCP Internal Medicine; Visit Provider Nurse Practitioner Family
DX: Z01.812 Encounter for preprocedural laboratory examination (principal); Z20.822 Contact with and (suspected) exposure to COVID-19
CPT/HCPCS: 87635; C9803

== ENCOUNTER → 2020-12-17 07:41 | Outpatient (CLI) | payer MEDICARE, SELFPAY ==
--- NOTE | 2020-12-17 07:44 | DI.NM.S_ITS ---
PROCEDURE: NM AILEEN PERF SPECT R&S PHARM Rest and pharmacological stress myocardial perfusion SPECT with gated imaging and ejection fraction RADIOPHARMACEUTICAL: 11.8 mCi Tc-99m tetrafosmin IV at rest and 25.3 mCi Tc-99m tetrafosmin IV at peak effect of pharmacological stress. [id number] was performed. INDICATIONS: Dyspnea on Exertion TECHNIQUE: Radiopharmaceutical was injected at peak stress test, and also at rest. SPECT images were obtained. SPECT myocardial perfusion images were displayed in short axis, horizontal long axis, and vertical long axis views. Gated images were reviewed using Mtime software. COMPARISON: None. CARDIAC STRESS: A pharmacologic stress test was performed under the supervision of an attending staff, using an infusion of regadenoson. Hemodynamic data: There is normal blood pressure and heart rate response to pharmacologic stress. Symptoms: The patient denied anginal chest pain. EKG: No diagnostic changes of ischemia; no ectopy. FINDINGS: Raw data: There is good myocardial uptake of radiotracer. No significant motion artifacts. Nvqx-[id number] ratio is 0.27 (normal is less than 0.38 for tetrafosmin tracer). Left ventricle function: Gated images demonstrate normal left ventricular wall thickening. No segmental wall motion abnormalities. No transient ischemic dilation; TID is 0.77 (normal less than 1.3). Left ventricle resting end diastolic volume is 61 mL. Left ventricle stress ejection fraction is >75% ; normal range is above 45%. Myocardial perfusion: There is normal distribution of activity in the right and left ventricular myocardium. No fixed or reversible perfusion defects. IMPRESSION: 1. No evidence of pharmacologic induced ischemia. 2. Hyperdynamic left ventricular function. Dictated by: Dahlia Parker D.O. on 12/17/2020 at 17:37 Approved by: Dahlia Parker M.D. on 12/17/2020 at 17:40
--- NOTE | 2020-12-17 14:26 | PM.TREADMILL ---
Cardiac Stress Test Report Referral & Results Date Patient Seen: 12/17/20 Time Patient Seen: 14:26 Requesting provider: Gabriel Waite Indication: Chest pain Rest ECG: Unremarkable Procedure Note: After both written and verbal informed consent the patient had an IV started by the diagnostic imaging RN, and then was hooked up to the treadmill monitoring system. The Lexiscan material, and then the Cardiolite tracer, were administered sequentially. An additional 3 min was spent monitoring the patient while supine on the gurney. The patient had a normal response to all infused materials. Impression: Please see perfusion imaging report for details regarding possible ischemia Please note: Actual ECG tracings can be found in the PACS system.
== END ==
PROVIDERS: PCP Internal Medicine; Referring Provider Internal Medicine; Visit Provider Internal Medicine
DX: R06.00 Dyspnea, unspecified (principal); R07.9 Chest pain, unspecified
CPT/HCPCS: 78452; 93016; 93017; 93018; A9502; J2785

== ENCOUNTER → 2021-01-01 08:43 | Outpatient (CLI) | payer MEDICARE, SELFPAY ==
[2021-01-01 09:26] LABS: COVID19 -Nasal RAPID Negative (Negative)
== END ==
PROVIDERS: PCP Internal Medicine; Referring Provider Internal Medicine; Visit Provider Internal Medicine
DX: Z20.822 Contact with and (suspected) exposure to COVID-19 (principal)
CPT/HCPCS: 87635; C9803

== ENCOUNTER → 2021-01-02 08:48 | Outpatient (CLI) | payer MEDICARE, SELFPAY ==
--- NOTE | 2021-01-09 09:38 | PM.PFT.1 ---
Pulmonary Function Test Referral & Results Date Patient Seen: 01/02/21 Requesting provider: Gabriel Waite Indication: Shortness of breath Results: The spirometry demonstrates an FVC of 2.21 L which is 86% of predicted. The FEV1 was measured at 1.72 L which is 90% of predicted. The FEV1/FVC ratio was 78 which is 105% of predicted. Following the administration of bronchodilator there was no appreciable change Lung volumes show an SVC of 2.35 L which is 90% of predicted. The diffusing capacity was measured at 20.28 which is 88% of predicted. The maximum voluntary ventilation was normal Interpretation: This study demonstrates normal pulmonary function
== END ==
PROVIDERS: PCP Internal Medicine; Referring Provider Internal Medicine; Visit Provider Internal Medicine
DX: R06.02 Shortness of breath (principal); J98.8 Other specified respiratory disorders
CPT/HCPCS: 94060; 94726; 94729

== ENCOUNTER → 2021-07-18 12:07 | Outpatient (CLI) | payer MEDICARE, SELFPAY ==
--- NOTE | 2021-07-18 | DI.US.S_ITS ---
PROCEDURE: US ABDOMEN COMPLETE INDICATIONS: Abnormal levels of other serum enzymes TECHNIQUE: Real-time scanning was performed of the abdominal and retroperitoneal organs, with image documentation. COMPARISON: None. FINDINGS: Liver: The liver demonstrates normal size. The liver demonstrates generalized mildly increased echogenicity. This decreases ultrasound sensitivity for detection of hepatic masses. Gallbladder: Removed. Biliary ducts: Intrahepatic bile ducts are non-dilated. Extrahepatic bile duct caliber measures 4 mm. Normal is 6-7 mm or less in diameter, or 10 mm or less post-cholecystectomy. Pancreas: Visualized portions of the pancreas are sonographically normal. Spleen: Spleen is normal in size and homogeneous in echotexture. Kidneys: Kidneys are normal in size and echotexture. Right kidney measures 10.1 cm long; left kidney measures 10.6 cm long. No hydronephrosis or nephrolithiasis. No solid masses. There is a likely cyst seen involving the upper mid aspect of the left kidney measuring up to 11 mm. Aorta: Visualized aorta is normal in caliber at less than 3 cm. Iliacs: Proximal common iliac arteries are normal in caliber at less than 2.5 cm. IVC: Intrahepatic inferior vena cava is patent. Miscellaneous: No free abdominal fluid. IMPRESSION: Status post cholecystectomy, without biliary dilatation. The liver demonstrates increased echogenicity. This finding is nonspecific, yet it is most commonly attributed to fatty infiltration. Incidental note is made of: Apparent 1.1 cm simple appearing left renal cyst Dictated by: Peter Wilson M.D. on 07/18/2021 at 12:28 Approved by: Peter Wilson M.D. on 07/18/2021 at 12:29
== END ==
PROVIDERS: PCP Internal Medicine; Referring Provider Internal Medicine; Visit Provider Internal Medicine
DX: R74.8 Abnormal levels of other serum enzymes (principal); N28.1 Cyst of kidney, acquired; Z90.49 Acquired absence of other specified parts of digestive tract
CPT/HCPCS: 76700

== ENCOUNTER 2022-01-20 10:51 | Emergency (ER) | payer MEDICARE, SELFPAY ==
[2022-01-20] VITALS (12 sets, daily range): BP systolic 117–148; BP diastolic 57–82; PULSE 67–70; RESP 18; TEMP 36.6–36.7; O2SAT 93–100; BMI 27.4
--- NOTE | 2022-01-20 11:21 | DI.CT.S_ITS ---
PROCEDURE: CT HEAD/BRAIN WO CON INDICATIONS: fall TECHNIQUE: Noncontrast 4.5 mm thick angled axial sections acquired from the foramen magnum to the vertex, with coronal and sagittal reformats. For radiation dose reduction, the following was used: automated exposure control, adjustment of mA and/or kV according to patient size. COMPARISON: [facility], MR, MR STROKE, 03/01/2020, 7:08. [facility], CT, CT HEAD WITHOUT CONTRAST, 09/06/2019, 18:19. [facility], CR, XR SHOULDER LT MIN 2V, 01/20/2022, 11:36. [facility], CT, CT CERVICAL SPINE WO CON, 01/20/2022, 11:31. FINDINGS: Image quality: Excellent. CSF spaces: Basal cisterns are patent. No extra-axial fluid collections. The ventricles are symmetric in size and shape. Brain: No intracranial bleeds or masses. There is cerebral volume loss for age, with resultant ventricular and sulcal prominence. There are periventricular and deep white matter chronic small vessel ischemic changes. There is intracranial internal carotid artery atherosclerosis. Skull and face: Calvarium and visualized facial bones appear intact, without suspicious lesions. Incidental note is made of hyperostosis frontalis. This is not considered to be pathologic in a woman of this age. Sinuses: Visualized sinuses and mastoids are clear. IMPRESSION: No acute intracranial hemorrhage is seen. No acute intracranial process is seen. Dictated by: Peter Wilson M.D. on 01/20/2022 at 10:54 Approved by: Peter Wilson M.D. on 01/20/2022 at 10:59
--- NOTE | 2022-01-20 11:22 | DI.RAD.S_ITS ---
PROCEDURE: XR SHOULDER LT MIN 2V INDICATIONS: fall TECHNIQUE: 3 views of the shoulder were acquired. COMPARISON: [facility], CT, CT HEAD/BRAIN WO [facility], 01/20/2022, 11:31. [facility], CT, CT CERVICAL SPINE WO CON, 01/20/2022, 11:31. FINDINGS: Bones: No fractures or dislocations. No suspicious bony lesions. Visualized ribs appear intact. There are age-appropriate degenerative changes seen, including mild subacromial spurring. Soft tissues: No suspicious soft tissue calcifications. Atherosclerotic calcification of the aortic arch is noted. The visualized lung demonstrates an unremarkable appearance. IMPRESSION: No acute plain film abnormality is identified. Dictated by: Peter Wilson M.D. on 01/20/2022 at 10:59 Approved by: Peter Wilson M.D. on 01/20/2022 at 11:00
[2022-01-20 11:35] LABS: Add Manual Diff / Slide Review NO; Basophils Absolute Auto 0 /uL (0-100); Basophils Percent Auto 0.6 % (0-2); Eosinophils Absolute Auto 100 /uL (0-450); Eosinophils Percent Auto 2.1 % (2-4); Hemoglobin 14.3 g/dL (12.0-16.0); Lymphocytes Absolute Auto 1800 /uL (1100-4500); Lymphocytes Percent Auto 26.9 % (25-40); Mean Corpuscular HGB Conc 34.9 % (30-36); Mean Corpuscular Hemoglobin 31.7 PG (26-34); Mean Corpuscular Volume 90.9 fL (80-100); Monocytes Absolute Auto 500 /uL (0-900); Monocytes Percent Auto 7.4 % (3-14); Neutrophils Absolute Auto 4200 /uL (1500-7000); Platelet Count 241 X10^3/uL (150-400); Prothrombin Time 11.4 SECONDS (10.1-12.7); Red Blood Cell Count 4.51 X10^6/uL (4.0-5.2); Red Cell Distribution Width 13.2 % (11.6-14.8); White Blood Cell Count 6.7 X10^3/uL (4.5-11.0)
--- NOTE | 2022-01-20 11:36 | DI.CT.S_ITS ---
PROCEDURE: CT CERVICAL SPINE WO CON INDICATIONS: fall TECHNIQUE: Noncontrast 3 mm thick sections acquired from the skull base to the T4 level. Sagittal and coronal reformats were then constructed. For radiation dose reduction, the following was used: automated exposure control, adjustment of mA and/or kV according to patient size. COMPARISON: [facility], CR, XR SHOULDER LT MIN 2V, 01/20/2022, 11:36. [facility], CT, CT HEAD/BRAIN WO CON, 01/20/2022, 11:31. FINDINGS: Image quality: This examination is somewhat limited by quantum mottle artifact. Bones: No fractures or dislocations. Visualized superior ribs are intact. Focal degenerative change is seen involving the C1-C2 interface anteriorly. There are bridging anterior osteophytes seen at the C4-C5 level. There is at least moderate disc space narrowing seen at C5-C6 and C6-C7. Minimal anterolisthesis is seen at C6-C7. Endplate irregularity and sclerosis can be seen, which are worst inferiorly. Posteriorly directed endplate osteophytes are seen, which are worst at C6-C7. Soft tissues: Prevertebral soft tissues are normal in thickness. No paravertebral hematomas. No apical pneumothoraces. Focal atherosclerotic calcification can be seen involving the left carotid bifurcation region. IMPRESSION: Negative for fracture. Cervical spine degenerative changes are seen, which are worst inferiorly. Dictated by: Peter Wilson M.D. on 01/20/2022 at 10:51 Approved by: Peter Wilson M.D. on 01/20/2022 at 10:53
[2022-01-20 11:40] LABS: Alanine Aminotransferase 20 IU/L (<35); Albumin 4.5 g/dL (3.5-5.0); Albumin Globulin Ratio 1.3 (1.0-2.8); Alkaline Phosphatase 89 U/L (38-126); Aspartate Aminotransferase 29 IU/L (14-36); BUN Creatinine Ratio 16.2 (6-22); Bilirubin Total 0.9 mg/dL (0.2-1.3); Blood Urea Nitrogen 19 mg/dL (7-17); Calcium 9.9 mg/dL (8.4-10.2); Carbon Dioxide 24 mmol/L (22-32); Chloride 104 mmol/L (98-107); Estimated Glomerular Filt Rate 47 mL/min (>60); Globulin 3.4 g/dL (1.7-4.1); Glucose 123 mg/dL (80-110); HEMOLYSIS < 15 (0-50); Potassium 3.6 mmol/L (3.4-5.1); Sodium 141 mmol/L (137-145); Total Protein 7.9 g/dL (6.3-8.2)
--- NOTE | 2022-01-20 12:31 | DI.CT.S_ITS ---
PROCEDURE: CT FACIAL BONES WO CON INDICATIONS: Fell on face TECHNIQUE: Noncontrast 2.5 mm thick axial images acquired from the mandible through the frontal sinuses, with coronal and sagittal reformatting. For radiation dose reduction, the following was used: automated exposure control, adjustment of mA and/or kV according to patient size. COMPARISON: None. FINDINGS: Image quality: Excellent. Bones and teeth: Orbital garibay are intact. Sinus garibay show no fracture or deformity. Suspected left nasal bone fracture, mildly displaced. Visualized portions of the mandible demonstrate no fractures or subluxation. Zygomatic arches are intact. Pterygoid plates are intact. Visualized portions of the skull base and auditory canals are intact. Sinuses: Paranasal sinuses are aerated, without fluid levels, mucosal thickening, or mucoceles. Mastoid air cells are aerated. Soft tissues: No edema, masses, or fluid collections. No enlarged lymph nodes. No soft tissue lacerations or debris. Vascular: Visualized vascular structures appear normal in the absence of contrast. Bony vascular foramina and canals are intact. IMPRESSION: Suspected mildly displaced left nasal bone fracture. No other fracture identified. Dictated by: Carlos Hurst M.D. on 01/20/2022 at 13:13 Approved by: Carlos Hurst M.D. on 01/20/2022 at 13:14
--- NOTE | 2022-01-20 12:41 | ED_ITS ---
HPI - Fall <Dakota Lezama PA-C - Last Filed: 01/20/22 14:14> General Chief Complaint: Fall Stated Complaint: GLF Time Seen by Provider: 01/20/22 11:07 Source: patient and EMS Mode of arrival: EMS History of Present Illness HPI Narrative: 81-year-old female with past medical history diabetes, hypertension, hyperlipid emia, obstructive sleep apnea presents to the ED status post a mechanical fall sustained just prior to arrival. Patient states she was trying to fix the rug at home, when she tugged on it, it gave which caused her to lose her balance and face plant on the floor. Patient states that it was quick, so she did not have the time to protect her face with her hands. Patient denies losing consciousness. Patient's help her called EMS, and they brought her to the ED. Patient states that immediately following the fall, she felt pain in the face on the left side, saw a small amount of bleeding. In the ED, patient states that her symptoms have improved significantly, currently she is complaining of mild pain on the left side of her face, pain in the left shoulder. Patient denies chest pain, shortness of breath, fever, chills, nausea, vomiting, dizziness, lightheadedness, syncope. Related Data Home Medications Medication Instructions Recorded Confirmed amlodipine 2.5 mg tablet 2.5 mg PO DAILY 12/03/17 12/18/21 simvastatin 20 mg tablet 20 mg PO DAILY 01/23/19 12/18/21 liraglutide 0.6 mg/0.1 mL (18 mg/3 1.2 mg SUBCUT DAILY 07/02/20 12/18/21 mL) subcutaneous pen injector (Victoza 2-Balbir) Respironics DreamStation 12/25/20 12/18/21 rnjpyaovyrbr-ddwyuiqv-[id number] tablet 1 tab PO DAILY 01/17/21 12/18/21 omeprazole magnesium 20 mg 20 mg PO DAILY 01/17/21 12/18/21 tablet,delayed release (Prilosec OTC) Previous Rx's Medication Instructions Recorded alprazolam 0.25 mg tablet 0.125 mg PO TID PRN anxiety #30 01/17/21 tabs indomethacin 50 mg capsule 50 mg PO TID PRN gouty flare #60 04/09/21 caps clobetasol 0.05 % topical ointment 1 g topical DAILY lichen sclerosis 05/06/21 #30 grams conjugated estrogens 0.625 mg/gram 0.625 mg vaginal DAILY lichen 05/06/21 vaginal cream sclerosis #30 grams losartan 25 mg tablet 25 mg PO DAILY #90 tabs 06/12/21 hydrochlorothiazide 12.5 mg tablet 12.5 mg PO DAILY #90 tabs 06/24/21 Allergies Allergy/AdvReac Type Severity Reaction Status Date / Time Opioids - Morphine Analogues Allergy Verified 12/18/21 08:51 Review of Systems <Dakota Lezama PA-C - Last Filed: 01/20/22 14:14> Review of Systems ROS Unobtainable: All systems reviewed & are unremarkable except as noted in HPI and below Constitutional Constitutional: Denies chills, Denies fatigue, Denies fever(s), Denies frequent falls, Denies lethargy and Denies weakness Eyes Eyes: Denies change in vision, Denies eye discharge, Denies irritation and Denies loss of vision ENT Ears, Nose, Mouth, and Throat: Denies change in voice, Denies dizziness, Denies neck pain, Denies sore throat and Denies throat swelling Cardiovascular Cardiovascular: Denies chest pain, Denies irregular heart rhythm, Denies lightheadedness, Denies palpitations, Denies dyspnea, Denies dyspnea on exertion and Denies orthopnea Respiratory Respiratory: Denies cough, Denies dyspnea, Denies dyspnea on exertion and Denies wheezing Gastrointestinal Gastrointestinal: Denies abdominal pain, Denies change in bowel habits, Denies diarrhea, Denies nausea and Denies vomiting Genitourinary Genitourinary: Denies hematuria, Denies flank pain, Denies urinary incontinence and Denies urinary urgency Musculoskeletal Musculoskeletal: Denies back pain, Denies muscle weakness, Denies neck pain, Denies numbness and Denies tingling Comments: Left shoulder pain, left-sided facial pain. Integumentary/Breasts Skin/Breast: Denies pruritus, Denies erythema, Denies rash and Denies wounds Neurologic Neurologic: Denies behavioral changes, Denies confusion, Denies dizziness, Denies frequent falls, Denies loss of vision, Denies numbness, Denies tingling and Denies weakness Psychiatric Psychiatric: Denies anxiety, Denies behavioral changes, Denies confusion, Denies depression, Denies homicidal ideation and Denies suicidal ideation Endocrine Endocrine: Denies fatigue, Denies flushing and Denies palpitations Hematologic/Lymphatic Hematologic/Lymphatic: Denies easy bruising Allergic/Immunologic Allergic/Immunologic: Denies urticaria, Denies throat swelling and Denies wheezing Patient History <Dakota Lezama PA-C - Last Filed: 01/20/22 14:14> Medical History Bunion, left foot Cataracts, bilateral Chicken pox Chronic back pain Diabetes mellitus type 2, noninsulin dependent FHx: breast cancer in first degree relative Generalized anxiety disorder GERD (gastroesophageal reflux disease) Gout H/O vaginal delivery History of esophageal stricture History of renal insufficiency HTN (hypertension) Lichen sclerosus Measles Mixed hyperlipidemia Mumps Obstructive sleep apnea Restless leg syndrome Rosacea Vertigo Vulvar lesion Surgical History Anesthesia History of lumbar spinal fusion History of total abdominal hysterectomy S/P appendectomy Status post total hip replacement, bilateral Family History Mother Breast cancer History of heart disease Sister Breast cancer Family/Other Breast cancer Father History of heart disease Social History marital status: household members: spouse (with dementia) lives independently: Yes caregiver/support person: No education level: master's degree (clinical psychologist, retired) Smoking Status: Never smoker alcohol intake: never Smoking Status: Never smoker alcohol intake frequency: 0-2 drinks per day Substance Use Type: does not use Exam <Dakota Lezama PA-C - Last Filed: 01/20/22 14:14> Narrative Exam Narrative: Const General:?cooperative, healthy appearing and comfortable [facility] Head:?normal to inspection Ears:?hearing grossly normal bilaterally Nose:?external nose normal Face and sinus:?sinuses nontender Mouth:?oral mucosae normal Throat:?posterior oropharynx normal Eyes General:?appearance normal, both eyes and all related structures Neck Neck:?normal visual inspection and no lymphadenopathy noted Resp Effort & Inspection:?normal respiratory effort Auscultation:?clear to auscultation bilaterally Cardio Rate:?regular rate Rhythm:?regular rhythm Musculoskeletal Tenderness to palpation of left shoulder. Tenderness to palpation of left maxilla, lips. Abrasion to bridge of the nose, nose mildly tender to palpation. Neuro General:?patient alert, patient awake and patient oriented x3 Initial Vital Signs Initial Vital Signs: Vital Signs Pulse Rate 68 01/20/22 11:06 Pulse Oximetry 93 01/20/22 11:06 <Munira Ty DO - Last Filed: 01/23/22 14:38> Initial Vital Signs Initial Vital Signs: Vital Signs Pulse Rate 68 01/20/22 11:06 Pulse Oximetry 93 01/20/22 11:06 Course <Dakota Lezama PA-C - Last Filed: 01/20/22 14:14> Orders Ordered: Discontinued Medications Ketorolac Tromethamine (Ketorolac 30 Mg/Ml Vial) 15 mg IV NOW ONE Stop: 01/20/22 12:32 Last Admin: 01/20/22 12:57 Dose: 15 mg Documented By: HUGH Vital Signs Vital signs: Vital Signs - 8 hr 01/20/22 12:20 01/20/22 12:20 01/20/22 12:30 Temperature Pulse Rate 68 67 Blood Pressure 135/82 Pulse Oximetry 97 98 01/20/22 14:09 01/20/22 14:11 01/20/22 14:11 Temperature 98.0 F Pulse Rate 67 Blood Pressure 148/71 H Pulse Oximetry 95 98 <Munira Ty DO - Last Filed: 01/23/22 14:38> Orders Ordered: Discontinued Medications Ketorolac Tromethamine (Ketorolac 30 Mg/Ml Vial) 15 mg IV NOW ONE Stop: 01/20/22 12:32 Last Admin: 01/20/22 12:57 Dose: 15 mg Documented By: HUGH Vital Signs Vital signs: Vital Signs - 8 hr 01/20/22 12:20 01/20/22 12:20 01/20/22 12:30 Temperature Pulse Rate 68 67 Blood Pressure 135/82 Pulse Oximetry 97 98 01/20/22 14:09 01/20/22 14:11 01/20/22 14:11 Temperature 98.0 F Pulse Rate 67 Blood Pressure 148/71 H Pulse Oximetry 95 98 MDM - Fall <BUSTER Thrasher Last Filed: 01/20/22 14:14> Lab Data Result diagrams: 01/20/22 10:51 01/20/22 10:51 Labs: Lab Results 01/20/22 01/20/22 01/20/22 Range/Units 10:51 10:51 10:51 WBC 6.7 (4.5-11.0) X10^3/uL RBC 4.51 (4.0-5.2) X10^6/uL Hgb 14.3 (12.0-16.0) g/dL Hct 41.0 (36-46) % MCV 90.9 (80-100) fL MCH 31.7 (26-34) PG MCHC 34.9 (30-36) % RDW 13.2 (11.6-14.8) % Plt Count 241 (150-400) X10^3/uL Neut % (Auto) 63.0 (50-75) % Lymph % (Auto) 26.9 (25-40) % Carroll % (Auto) 7.4 (3-14) % Eos % (Auto) 2.1 (2-4) % Baso % (Auto) 0.6 (0-2) % Neut # (Auto) 4200 (5996-5132) /uL Lymph # (Auto) 1800 (4958-9306) /uL Carroll # (Auto) 500 (0-900) /uL Eos # (Auto) 100 (0-450) /uL Baso # (Auto) 0 (0-100) /uL PT 11.4 (10.1-12.7) SECONDS INR 1.0 (0.9-1.3) Sodium 141 (137-145) mmol/L Potassium 3.6 (3.4-5.1) mmol/L Chloride 104 (98-107) mmol/L Carbon Dioxide 24 (22-32) mmol/L BUN 19 H (7-17) mg/dL Creatinine 1.17 H (0.52-1.04) mg/dL Estimated GFR 47 L (>60) mL/min BUN/Creatinine Ratio 16.2 (6-22) Glucose 123 H (80-110) mg/dL Calcium 9.9 (8.4-10.2) mg/dL Total Bilirubin 0.9 (0.2-1.3) mg/dL AST 29 (14-36) IU/L ALT 20 (<35) IU/L Alkaline Phosphatase 89 (38-126) U/L Total Protein 7.9 (6.3-8.2) g/dL Albumin 4.5 (3.5-5.0) g/dL Globulin 3.4 (1.7-4.1) g/dL Albumin/Globulin Ratio 1.3 (1.0-2.8) Imaging Data CT - cervical spine: Radiologist's Impression: PROCEDURE:? CT CERVICAL SPINE WO CON ? INDICATIONS:? fall ? TECHNIQUE:? Noncontrast 3 mm thick sections acquired from the skull base to the T4 level.? Sagittal and coronal reformats were then constructed.? For radiation dose reduction, the following was used:? automated exposure control, adjustment of mA and/or kV according to patient size.? ? COMPARISON:? [facility], CR, XR SHOULDER LT MIN 2V, 01/20/2022, 11:36.? [facility], CT, CT HEAD/BRAIN WO CON, 01/20/2022, 11:31. ? FINDINGS:? Image quality:? This examination is somewhat limited by quantum mottle artifact.? ? Bones:? No fractures or dislocations.? Visualized superior ribs are intact.? ? Focal degenerative change is seen involving the C1-C2 interface anteriorly.? There are bridging anterior osteophytes seen at the C4-C5 level.? There is at least moderate disc space narrowing seen at C5-C6 and C6-C7.? Minimal anterolisthesis is seen at C6- C7.? Endplate irregularity and sclerosis can be seen, which are worst inferiorly.? Posteriorly directed endplate osteophytes are seen, which are worst at C6-C7. ? Soft tissues:? Prevertebral soft tissues are normal in thickness.? No paravertebral hematomas.? No apical pneumothoraces.? Focal atherosclerotic calcification can be seen involving the left carotid bifurcation region. ? ? IMPRESSION:? Negative for fracture. ? Cervical spine degenerative changes are seen, which are worst inferiorly. ? ? ? Dictated by: Peter Wilson M.D. on 01/20/2022 at 10:51 ? ? Approved by: Peter Wilson M.D. on 01/20/2022 at 10:53 ? Extremity x-ray #1: Radiologist's Impression: PROCEDURE:? XR SHOULDER LT MIN 2V ? INDICATIONS:? fall ? TECHNIQUE:? 3 views of the shoulder were acquired.? ? COMPARISON:? [facility], CT, CT HEAD/BRAIN WO CON, 01/20/2022, 11:31.? [facility], CT, CT CERVICAL SPINE WO CON, 01/20/2022, 11:31. ? FINDINGS:? ? Bones:? No fractures or dislocations.? No suspicious bony lesions.? Visualized ribs appear intact.? There are age-appropriate degenerative changes seen, including mild subacromial spurring.? ? Soft tissues:? No suspicious soft tissue calcifications.? Atherosclerotic calcification of the aortic arch is noted.? The visualized lung demonstrates an unremarkable appearance. ? ? IMPRESSION:? No acute plain film abnormality is identified. ? ? Dictated by: Peter Wilson M.D. on 01/20/2022 at 10:59 ? ? Approved by: Peter Wilson M.D. on 01/20/2022 at 11:00 ? CT scan - head: Radiologist's Impression: PROCEDURE:? CT HEAD/BRAIN WO CON ? INDICATIONS:? fall ? TECHNIQUE:? Noncontrast 4.5 mm thick angled axial sections acquired from the foramen magnum to the vertex, with coronal and sagittal reformats.? For radiation dose reduction, the following was used:? automated exposure control, adjustment of mA and/or kV according to patient size.? ? COMPARISON:? [facility], MR, MR STROKE, 03/01/2020, 7:08.? [facility], CT, CT HEAD WITHOUT CONTRAST, 09/06/2019, 18:19.? [facility], CR, XR SHOULDER LT MIN 2V, 01/20/2022, 11:36.? [facility], CT, CT CERVICAL SPINE WO CON, 01/20/2022, 11:31. ? FINDINGS:? Image quality:? Excellent.? ? CSF spaces:? Basal cisterns are patent.? No extra-axial fluid collections.? The ventricles are symmetric in size and shape.? ? Brain:? No intracranial bleeds or masses.? There is cerebral volume loss for age, with resultant ventricular and sulcal prominence.? There are periventricular and deep white matter chronic small vessel ischemic changes.? There is intracranial internal carotid artery atherosclerosis.? ? Skull and face:? Calvarium and visualized facial bones appear intact, without suspicious lesions.? Incidental note is made of hyperostosis frontalis. This is not considered to be pathologic in a woman of this age. ? Sinuses:? Visualized sinuses and mastoids are clear.? ? ? IMPRESSION:? No acute intracranial hemorrhage is seen.? ? No acute intracranial process is seen.? ? ? Dictated by: Peter Wilson M.D. on 01/20/2022 at 10:54 ? ? Approved by: Peter Wilson M.D. on 01/20/2022 at 10:59 ? CT facial bones: Radiologist's Impression: PROCEDURE:? CT FACIAL BONES WO CON ? INDICATIONS:? Fell on face ? TECHNIQUE:? Noncontrast 2.5 mm thick axial images acquired from the mandible through the frontal sinuses, with coronal and sagittal reformatting.? For radiation dose reduction, the following was used:? automated exposure control, adjustment of mA and/or kV according to patient size.? ? COMPARISON:? None. ? FINDINGS:? Image quality:? Excellent.? ? Bones and teeth:? Orbital garibay are intact.? Sinus garibay show no fracture or deformity.? Suspected left nasal bone fracture, mildly displaced.? Visualized portions of the mandible demonstrate no fractures or subluxation.? Zygomatic arches are intact.? Pterygoid plates are intact.? Visualized portions of the skull base and auditory canals are intact.? ? Sinuses:? Paranasal sinuses are aerated, without fluid levels, mucosal thickening, or mucoceles.? Mastoid air cells are aerated.? ? Soft tissues:? No edema, masses, or fluid collections.? No enlarged lymph no cherie.? No soft tissue lacerations or debris.? ? Vascular:? Visualized vascular structures appear normal in the absence of contrast.? Bony vascular foramina and canals are intact.? ? IMPRESSION:? Suspected mildly displaced left nasal bone fracture.? No other fracture identified. ? ? Dictated by: Carlos Hurst M.D. on 01/20/2022 at 13:13 ? ? Approved by: Carlos Hurst M.D. on 01/20/2022 at 13:14 ? MDM Narrative Medical decision making narrative: 81-year-old female with past medical history diabetes, hypertension, hyperlipid emia, obstructive sleep apnea presents to the ED status post a mechanical fall sustained just prior to arrival. Concern for intracranial hemorrhage versus fractures versus contusion. Will obtain CT head, CT C-spine, left shoulder x- ray, CT facial bones. Will give Toradol for symptoms. Patient's tetanus is already up-to-date. CT facial bones shows a possible mildly displaced left-sided nasal fracture. All other imaging without acute findings. Patient's airway appears patent, patient breathing comfortably, there is minimal swelling in the nose. Will discharge home with continued use of analgesics, ED return precautions. Patient verbalized understanding. <Munira Ty, DO - Last Filed: 01/23/22 14:38> Lab Data Labs: Lab Results 01/20/22 01/20/22 01/20/22 Range/Units 10:51 10:51 10:51 WBC 6.7 (4.5-11.0) X10^3/uL RBC 4.51 (4.0-5.2) X10^6/uL Hgb 14.3 (12.0-16.0) g/dL Hct 41.0 (36-46) % MCV 90.9 (80-100) fL MCH 31.7 (26-34) PG MCHC 34.9 (30-36) % RDW 13.2 (11.6-14.8) % Plt Count 241 (150-400) X10^3/uL Neut % (Auto) 63.0 (50-75) % Lymph % (Auto) 26.9 (25-40) % Carroll % (Auto) 7.4 (3-14) % Eos % (Auto) 2.1 (2-4) % Baso % (Auto) 0.6 (0-2) % Neut # (Auto) 4200 (3554-8671) /uL Lymph # (Auto) 1800 (7351-4858) /uL Carroll # (Auto) 500 (0-900) /uL Eos # (Auto) 100 (0-450) /uL Baso # (Auto) 0 (0-100) /uL PT 11.4 (10.1-12.7) SECONDS INR 1.0 (0.9-1.3) Sodium 141 (137-145) mmol/L Potassium 3.6 (3.4-5.1) mmol/L Chloride 104 (98-107) mmol/L Carbon Dioxide 24 (22-32) mmol/L BUN 19 H (7-17) mg/dL Creatinine 1.17 H (0.52-1.04) mg/dL Estimated GFR 47 L (>60) mL/min BUN/Creatinine Ratio 16.2 (6-22) Glucose 123 H (80-110) mg/dL Calcium 9.9 (8.4-10.2) mg/dL Total Bilirubin 0.9 (0.2-1.3) mg/dL AST 29 (14-36) IU/L ALT 20 (<35) IU/L Alkaline Phosphatase 89 (38-126) U/L Total Protein 7.9 (6.3-8.2) g/dL Albumin 4.5 (3.5-5.0) g/dL Globulin 3.4 (1.7-4.1) g/dL Albumin/Globulin Ratio 1.3 (1.0-2.8) Discharge Plan Departure Patient Disposition: Home Clinical Impression: Fall Instructions: How to Prevent Falls Activity Restrictions/Additional Instructions: You were evaluated in the ED today for a fall. Your CT C-spine, shoulder X ray were normal. Your CT scan of the facial bones does show a slightly displaced nose fracture, for which no treatment is indicated at the moment. You may c ontinue to take ibuprofen or Tylenol for the discomfort. Return to the ED if you have any worsening symptoms, you experience chest pain, shortness of breath, uncontrollable vomiting. Prescriptions: No Action amlodipine 2.5 mg tablet 2.5 mg PO DAILY indomethacin 50 mg capsule 50 mg PO TID PRN (Reason: gouty flare) Qty: 60 0RF Rx Instructions: administer with food or milk losartan 25 mg tablet 25 mg PO DAILY Qty: 90 1RF hydrochlorothiazide 12.5 mg tablet 12.5 mg PO DAILY Qty: 90 3RF [id number]-odyyfsrp-xtztjf Tablet 1 tab PO DAILY omeprazole magnesium [Prilosec OTC] 20 mg tablet,delayed release (DR/EC) 20 mg PO DAILY alprazolam 0.25 mg tablet 0.125 mg PO TID PRN (Reason: anxiety) Qty: 30 0RF clobetasol 0.05 % ointment 1 g topical DAILY Qty: 30 2RF Rx Instructions: Apply finger tip worth to vulva and vagina once daily for 14 days, then 1-2 times weekly. conjugated estrogens 0.625 mg/gram cream 0.625 mg vaginal DAILY Qty: 30 2RF Rx Instructions: Apply to vulva and vagina once daily for 14 days, then 1-2x weekly. Victoza 2-Balbir 0.6 mg/0.1 mL (18 mg/3 mL) pen injector 1.2 mg SUBCUT DAILY simvastatin 20 mg tablet 20 mg PO DAILY (DME) Respironics DreamStation See Rx Instructions .Route .MEDSUPPLY Rx Instructions: CPAP DreamStation Min Pressure: 6 Max Pressure: 16 Referrals: Trevin Arnold MD [Primary Care Provider] - Visit Report Forms: Patient Portal/API <Munira Ty DO - Last Filed: 01/23/22 14:38> Cosign ED Attending Cosdariusature Attestation: I was immediately available in the department for consultation. Documentation has been reviewed.
[2022-01-20] MEDS: KETOROLAC 30 MG/ML VIAL 15 MG IV (12:57)
== END 2022-01-20 14:16 | disposition home or self-care (01) ==
PROVIDERS: Emergency Medicine; Emergency Provider Student in an Organized Health Care Education/Training Program; PCP Internal Medicine
DX: S09.93XA Unspecified injury of face, initial encounter (principal); M25.512 Pain in left shoulder; W18.30XA Fall on same level, unspecified, initial encounter; R03.0 Elevated blood-pressure reading, without diagnosis of hypertension
CPT/HCPCS: 70450; 70486; 72125; 73030; 80053; 85025; 85610; 93005; 93010; 96374; 99284; J1885

== ENCOUNTER 2022-03-19 20:39 | Emergency (ER) | payer MEDICARE, SELFPAY ==
[2022-03-19 20:45] VITALS: BP 161/89; PULSE 76; RESP 18; TEMP 36.6; O2SAT 98
--- NOTE | 2022-03-19 20:56 | DI.RAD.S_ITS ---
PROCEDURE: XR FOOT RT MIN 3V INDICATIONS: pain and swelling 2nd left toe and top of foot,no injury TECHNIQUE: 3 views of the foot were acquired. COMPARISON: [facility], CR, XR FOOT LT MIN 3V, 10/21/2020, 16:46. FINDINGS: Bones: No wall displaced fractures or dislocations. There is mild degeneration of the interphalangeal joints. There is moderate degeneration of the 1st metatarsophalangeal joint. No discrete bony erosions or periosteal reaction. No suspicious bony lesions. Soft tissues: No tibiotalar joint effusion. Achilles tendon appears normal. IMPRESSION: 1. No fractures or definite radiographic evidence of osteomyelitis. 2. 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 Dictated by: John Jean M.D. on 03/19/2022 at 22:25 Approved by: John Jean M.D. on 03/19/2022 at 22:27
--- NOTE | 2022-03-19 21:03 | ED_ITS ---
HPI - Extremity Problem General Chief complaint: Extremity Problem,Nontraumatic Stated complaint: rt toe pain Time Seen by Provider: 03/19/22 20:42 Source: patient Mode of arrival: Wheelchair History of Present Illness HPI Narrative: 81F nonsmoker with history of HTN, hyperlipidemia, NIDDM, GERD, gout presents with family and the chief complaint of a few days of pain in her right second toe with some redness in the absence of any known injury. Admittedly, she does have a peripheral neuropathy but states she does not remember any injury, she is had no new footwear. She denies any red streaks working up her foot or leg. She is had no systemic complaints such as dizziness, weakness or lightheadedness and denies chest pain, shortness of breath. She is had no fever or chills. She has had gout in the past but states only in her great toe and knee. Her pain is worse with palpation and walking and improves with rest. Related Data Home Medications Medication Instructions Recorded Confirmed amlodipine 2.5 mg tablet 2.5 mg PO DAILY 12/03/17 12/18/21 simvastatin 20 mg tablet 20 mg PO DAILY 01/23/19 12/18/21 liraglutide 0.6 mg/0.1 mL (18 mg/3 1.2 mg SUBCUT DAILY 07/02/20 12/18/21 mL) subcutaneous pen injector (Victoza 2-Balbir) [employer] DreamStation 12/25/20 12/18/21 [id number] tablet 1 tab PO DAILY 01/17/21 12/18/21 omeprazole magnesium 20 mg 20 mg PO DAILY 01/17/21 12/18/21 tablet,delayed release (Prilosec OTC) Previous Rx's Medication Instructions Recorded alprazolam 0.25 mg tablet 0.125 mg PO TID PRN anxiety #30 01/17/21 tabs indomethacin 50 mg capsule 50 mg PO TID PRN gouty flare #60 04/09/21 caps clobetasol 0.05 % topical ointment 1 g topical DAILY lichen sclerosis 05/06/21 #30 grams conjugated estrogens 0.625 mg/gram 0.625 mg vaginal DAILY lichen 05/06/21 vaginal cream sclerosis #30 grams losartan 25 mg tablet 25 mg PO DAILY #90 tabs 06/12/21 hydrochlorothiazide 12.5 mg tablet 12.5 mg PO DAILY #90 tabs 06/24/21 doxycycline hyclate 100 mg capsule 100 mg PO BID #20 caps 03/19/22 doxycycline hyclate 100 mg tablet 100 mg PO BID #20 tabs 03/19/22 Allergies Allergy/AdvReac Type Severity Reaction Status Date / Time Opioids - Morphine Analogues Allergy Verified 12/18/21 08:51 Review of Systems Review of Systems Narrative: GENERAL: Denies chills, fatigue, malaise, fever, sweats. HEENT: Denies sinus pain, ear pain, sore throat, difficulty swallowing, dizziness. RESPIRATORY: Denies dyspnea, cough, wheezing, hemoptysis, sputum. CARDIOVASCULAR: Denies chest pain, palpitations, orthopnea, edema, GASTROINTESTINAL: Denies nausea, vomiting, abdominal pain, diarrhea, constipation, melena. : Denies dysuria, frequency, incontinence, hematuria, urinary retention. MUSCULOSKELETAL: denies weakness, joint pain, or bony pain SKIN: See HPI NEUROLOGIC: Denies weakness, headache, numbness, change in speech, confusion, seizures, incoordination. PSYCHIATRIC: No concerning psychosocial issues. 12 point review of systems is negative except for those stated above Patient History Medical History Bunion, left foot Cataracts, bilateral Chicken pox Chronic back pain Diabetes mellitus type 2, noninsulin dependent FHx: breast cancer in first degree relative Generalized anxiety disorder GERD (gastroesophageal reflux disease) Gout H/O vaginal delivery History of esophageal stricture History of renal insufficiency HTN (hypertension) Lichen sclerosus Measles Mixed hyperlipidemia Mumps Obstructive sleep apnea Restless leg syndrome Rosacea Vertigo Vulvar lesion Surgical History Anesthesia History of lumbar spinal fusion History of total abdominal hysterectomy S/P appendectomy Status post total hip replacement, bilateral Family History Mother Breast cancer History of heart disease Sister Breast cancer Family/Other Breast cancer Father History of heart disease Social History marital status: household members: spouse (with dementia) lives independently: Yes caregiver/support person: No education level: master's degree (clinical psychologist, retired) Smoking Status: Never smoker alcohol intake: never Smoking Status: Never smoker alcohol intake frequency: 0-2 drinks per day Substance Use Type: does not use Exam Narrative Exam Narrative: GEN: AOx3 and in mild distress EYES: Pupils are equal, round, and reactive to light and accommodation. Extraoccular muscles are intact bilaterally. There is no subconjunctival hemorrhage or exudate. CHEST: Lungs are clear to auscultation bilaterally and free of wheezes, rales, or rhonchi. Heart rate is regular rhythm, there are no murmurs, clicks, rubs, or gallops. There is no chest wall tenderness. ABD: Abdomen is soft and nontender. There is no guarding or rebound. Bowel sounds are normal in all 4 quadrants. There is no mass or organomegaly. EXT: R second toe with some erythema of the distal phalanx. Minimal swelling, no fluctuance. No lymphangitis. SKIN: Warm, pink, and dry. No erythema or rash Initial Vital Signs Initial Vital Signs: Vital Signs Temperature 98 F 03/19/22 20:45 Pulse Rate 76 03/19/22 20:45 Respiratory Rate 18 03/19/22 20:45 Blood Pressure 161/89 H 03/19/22 20:45 Pulse Oximetry 98 03/19/22 20:45 Oxygen Delivery Method 03/19/22 20:45 Course Orders Ordered: Discontinued Medications Doxycycline Hyclate (Doxycycline Hyclate 100 Mg Tablet) 100 mg PO NOW ONE Stop: 03/19/22 22:06 Last Admin: 03/19/22 22:53 Dose: 100 mg Documented By: RB Vital Signs Vital signs: Vital Signs - 8 hr 03/19/22 22:30 03/19/22 22:30 Pulse Rate 71 Blood Pressure 155/77 H Pulse Oximetry 98 MDM - Extremity (Nontraumatic) Imaging Data Extremity x-ray #1: Radiologist's Impression: [address] [address] XRay Report Signed Patient: Krystin Calderón MR#: [id number] : 1940 Acct:[id number] Age/Sex: 81 / F Date of Service: 03/19/22 Loc: ED Accession Number: [id number] ?? Procedure: XR foot RT min 3V Ordering Provider: Bowen Dickens D.O. PROCEDURE:? XR FOOT RT MIN 3V ? INDICATIONS:? pain and swelling 2nd left toe and top of foot,no injury ? TECHNIQUE:? 3 views of the foot were acquired.? ? COMPARISON:? [facility], CR, XR FOOT LT MIN 3V, 10/21/2020, 16:46. ? FINDINGS:? ? Bones:? No wall displaced fractures or dislocations.? There is mild degeneration of the interphalangeal joints.? There is moderate degeneration of the 1st metatarsophalangeal joint.? No discrete bony erosions or periosteal reaction.? No suspicious bony lesions.? ? Soft tissues:? No tibiotalar joint effusion.? Achilles tendon appears normal.? ? IMPRESSION:? ? 1. No fractures or definite radiographic evidence of osteomyelitis. ? 2. 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 ? ? Dictated by: John Jean M.D. on 03/19/2022 at 22:25 ? ? Approved by: John Jean M.D. on 03/19/2022 at 22:27 ? MDM Narrative Medical decision making narrative: 81F nonsmoker with history of HTN, hyperlipidemia, NIDDM, GERD, gout presents with family and the chief complaint of a few days of pain in her right second toe with some redness in the absence of any known injury. Multiple etiologies for patient's symptoms considered including: [Orthopedic injury versus gout versus cellulitis] Findings and discharge diagnosis discussed with patient/family followed by verbalization of understanding Return precautions discussed with patient/family whom verbalize understanding. Discharge Plan Departure Patient Disposition: Home Clinical Impression: Pain in toe Instructions: DI for Cellulitis -- Adult Activity Restrictions/Additional Instructions: *You have been diagnosed with [right 2nd toe pain and redness, as we discussed this seems most likely related to mild infection. Other diagnoses that could be present might include a very atypical presentation of gout or even clot.] *What to do: *Please continue to take your regular medications as directed. [x ] New medication prescriptions sent to your pharmacy: [[facility] ] [ ] New medication written as a paper prescription [ ] No new medications given *Please follow up with your primary care provider in 2-3 days, call for an appointment. Let them know you were seen in the Emergency Department and that we ask that you be seen in follow up. We will electronically transmit a record of today's note if your PCP is in our system *If you do not have a primary care provider please contact the [facility] Resource line at [phone]. They will ask some questions about your medical history and help get you set up with a doctor in the community. *Return to Emergency Department if you should have any new, worsening or concerning symptoms, such as [fever greater than 101 F, shaking chills, worsening pain, persistent vomiting or other bothersome symptoms] Prescriptions: New doxycycline hyclate 100 mg capsule 100 mg PO BID Qty: 20 0RF doxycycline hyclate 100 mg tablet 100 mg PO BID Qty: 20 0RF No Action amlodipine 2.5 mg tablet 2.5 mg PO DAILY indomethacin 50 mg capsule 50 mg PO TID PRN (Reason: gouty flare) Qty: 60 0RF Rx Instructions: administer with food or milk losartan 25 mg tablet 25 mg PO DAILY Qty: 90 1RF hydrochlorothiazide 12.5 mg tablet 12.5 mg PO DAILY Qty: 90 3RF rfnbrlrnhnkj-aabajmqn-pscniu Tablet 1 tab PO DAILY omeprazole magnesium [Prilosec OTC] 20 mg tablet,delayed release (DR/EC) 20 mg PO DAILY alprazolam 0.25 mg tablet 0.125 mg PO TID PRN (Reason: anxiety) Qty: 30 0RF clobetasol 0.05 % ointment 1 g topical DAILY Qty: 30 2RF Rx Instructions: Apply finger tip worth to vulva and vagina once daily for 14 days, then 1-2 times weekly. conjugated estrogens 0.625 mg/gram cream 0.625 mg vaginal DAILY Qty: 30 2RF Rx Instructions: Apply to vulva and vagina once daily for 14 days, then 1-2x weekly. Victoza 2-Balbir 0.6 mg/0.1 mL (18 mg/3 mL) pen injector 1.2 mg SUBCUT DAILY simvastatin 20 mg tablet 20 mg PO DAILY (DME) [employer] DreamStation See Rx Instructions .Route .MEDSUPPLY Rx Instructions: CPAP DreamStation Min Pressure: 6 Max Pressure: 16 Referrals: Trevin Arnold MD [Primary Care Provider] - Visit Report Forms: Patient Portal/API
[2022-03-19 21:44] VITALS: O2SAT 97
[2022-03-19 21:45] VITALS: BP 147/72; PULSE 70; O2SAT 97
[2022-03-19 21:53] VITALS: PULSE 68
[2022-03-19 22:00] VITALS: BP 149/78; PULSE 72; O2SAT 96
[2022-03-19 22:30] VITALS: BP 155/77; PULSE 71; O2SAT 98
[2022-03-19] MEDS: DOXYCYCLINE HYCLATE 100 MG TABLET PO (22:53)
== END 2022-03-19 22:58 | disposition home or self-care (01) ==
PROVIDERS: Emergency Provider Emergency Medicine; PCP Internal Medicine
DX: M79.674 Pain in right toe(s) (principal)
CPT/HCPCS: 73630; 99283

== ENCOUNTER 2022-03-21 16:01 | Emergency (ER) | payer MEDICARE, SELFPAY ==
[2022-03-21] VITALS (7 sets, daily range): BP systolic 137–158; BP diastolic 68–75; PULSE 72–76; RESP 16–41; TEMP 36.7; O2SAT 93–99; BMI 25.9
--- NOTE | 2022-03-21 16:59 | ED_ITS ---
HPI - Extremity Problem <Alma Schumacher PA-C - Last Filed: 03/21/22 22:02> General Chief complaint: Extremity Problem,Nontraumatic Stated complaint: Cellit[place], headache, falls all the time Time Seen by Provider: 03/21/22 16:47 Source: patient Mode of arrival: Wheelchair History of Present Illness HPI Narrative: Mrs. Calderón is very pleasant 81 years old female, noted right toe pain for past 3 days, she was seen in ER for that reason and was prescribed doxycycline. Patient believes her toe does not improve despite on her taken antibiotics for several days and pain is increased. She described pain as intense and stabbing difficult to walk on the right foot, she also noticed some swelling on the dorsum of the foot which is new She has been taking Several opiate containing analgesics, as well as ibuprofen. She feels nauseated and today felt some upper abdominal pain. Denies fever, however complaints of chills Patient states she had back surgery, in Spring 2021, she was on narcotic analgesic, and still has some left overs from that surgery , and her taking dilaudid 2 mg does not seem to improve the pain Related Data Home Medications Medication Instructions Recorded Confirmed amlodipine 2.5 mg tablet 2.5 mg PO DAILY 12/03/17 12/18/21 simvastatin 20 mg tablet 20 mg PO DAILY 01/23/19 12/18/21 liraglutide 0.6 mg/0.1 mL (18 mg/3 1.2 mg SUBCUT DAILY 07/02/20 12/18/21 mL) subcutaneous pen injector (Victoza 2-Balbir) Respironics DreamStation 12/25/20 12/18/21 [id number]-[id number] tablet 1 tab PO DAILY 01/17/21 12/18/21 omeprazole magnesium 20 mg 20 mg PO DAILY 01/17/21 12/18/21 tablet,delayed release (Prilosec OTC) Previous Rx's Medication Instructions Recorded alprazolam 0.25 mg tablet 0.125 mg PO TID PRN anxiety #30 01/17/21 tabs indomethacin 50 mg capsule 50 mg PO TID PRN gouty flare #60 04/09/21 caps clobetasol 0.05 % topical ointment 1 g topical DAILY lichen sclerosis 05/06/21 #30 grams conjugated estrogens 0.625 mg/gram 0.625 mg vaginal DAILY lichen 05/06/21 vaginal cream sclerosis #30 grams losartan 25 mg tablet 25 mg PO DAILY #90 tabs 06/12/21 hydrochlorothiazide 12.5 mg tablet 12.5 mg PO DAILY #90 tabs 06/24/21 doxycycline hyclate 100 mg capsule 100 mg PO BID #20 caps 03/19/22 doxycycline hyclate 100 mg tablet 100 mg PO BID #20 tabs 03/19/22 cephalexin 500 mg capsule 500 mg PO TID #30 caps 03/21/22 famotidine 20 mg tablet (Pepcid AC) 20 mg PO BID #20 tabs 03/21/22 mupirocin 2 % topical ointment 1 applic topical TID #22 grams 03/21/22 Allergies Allergy/AdvReac Type Severity Reaction Status Date / Time Opioids - Morphine Analogues Allergy Verified 12/18/21 08:51 Review of Systems <Alma Schumacher PA-C - Last Filed: 03/21/22 22:02> Review of Systems Narrative: GENERAL: Denies chills, admits to fatigue, denies malaise, fever, sweats. HEENT: Denies sinus pain, ear pain, sore throat, difficulty swallowing, dizziness. RESPIRATORY: Denies dyspnea, cough, wheezing, hemoptysis, sputum. CARDIOVASCULAR: Denies chest pain, palpitations, orthopnea, edema, GASTROINTESTINAL: Has had nausea, no vomiting, and sharp abdominal pain, earlier today, denies diarrhea, constipation, melena. : Denies dysuria, frequency, incontinence, hematuria, urinary retention. MUSCULOSKELETAL: Admits to weakness, joint pain, and bony pain SKIN: Denies rash, skin lesions, or other NEUROLOGIC: Has been having balance problems ever since she lost weight after her surgery Denies focal weakness, admits to headache, and tingling and numbness, in her extremities, which is not new and lasting now for several years Denies change in speech, confusion, seizures, admits lately has had more incoordination. PSYCHIATRIC: Patient admits she is under a huge amount of emotional stress due to caring for her ailing spouse who is in hospice Patient History <Alma Schumacher PA-C - Last Filed: 03/21/22 22:02> Medical History Bunion, left foot Cataracts, bilateral Chicken pox Chronic back pain Diabetes mellitus type 2, noninsulin dependent FHx: breast cancer in first degree relative Generalized anxiety disorder GERD (gastroesophageal reflux disease) Gout H/O vaginal delivery History of esophageal stricture History of renal insufficiency HTN (hypertension) Lichen sclerosus Measles Mixed hyperlipidemia Mumps Obstructive sleep apnea Restless leg syndrome Rosacea Vertigo Vulvar lesion Surgical History Anesthesia History of lumbar spinal fusion History of total abdominal hysterectomy S/P appendectomy Status post total hip replacement, bilateral Family History Mother Breast cancer History of heart disease Sister Breast cancer Family/Other Breast cancer Father History of heart disease Social History marital status: household members: spouse (with dementia) lives independently: Yes caregiver/support person: No education level: master's degree (clinical psychologist, retired) Smoking Status: Never smoker alcohol intake: never Smoking Status: Never smoker alcohol intake frequency: 0-2 drinks per day Substance Use Type: does not use Exam <Alma Schumacher PA-C - Last Filed: 03/21/22 22:02> Narrative Exam Narrative: GENERAL: 81 year old patient appears stated age. Well-developed patient, in no acute distress. HEAD: Atraumatic. Normocephalic. EYES: Pupils equal round and reactive. Extraocular motions intact. No scleral icterus. No injection or drainage. ENT: Nose without bleeding, purulent drainage. Throat without erythema, tonsillar hypertrophy or exudate. Airway patent. NECK: Trachea midline. Non tender CARDIOVASCULAR: Regular rate and rhythm without murmurs, gallops, or rubs. RESPIRATORY: Clear to auscultation. Breath sounds equal bilaterally. No wheezes, rales, or rhonchi. GASTROINTESTINAL: Abdomen soft, epigastric areas slightly-tender, nondistended. Bowel sounds are normoactive EXTREMITIES: No edema or joint tenderness. BACK: Nontender without deformity or crepitance. No flank tenderness. NEURO: AOx3. No focal deficits. Pinprick sensation intact lower extremity. SKIN: Right foot 2d toe erythematous with erythema extending to the dorsum of the right foot no exudate Initial Vital Signs Initial Vital Signs: Vital Signs Temperature 98.0 F 03/21/22 16:08 Pulse Rate 76 03/21/22 16:08 Respiratory Rate 16 03/21/22 16:08 Blood Pressure 140/70 03/21/22 16:08 Pulse Oximetry 99 03/21/22 16:08 Oxygen Delivery Method 03/21/22 16:08 <Ac Forrest DO - Last Filed: 03/22/22 07:12> Initial Vital Signs Initial Vital Signs: Vital Signs Temperature 98.0 F 03/21/22 16:08 Pulse Rate 76 03/21/22 16:08 Respiratory Rate 16 03/21/22 16:08 Blood Pressure 140/70 03/21/22 16:08 Pulse Oximetry 99 03/21/22 16:08 Oxygen Delivery Method 03/21/22 16:08 Course <Alma Schumacher PA-C - Last Filed: 03/21/22 22:02> Orders Ordered: Discontinued Medications Acetaminophen (Acetaminophen 325 Mg Tablet) 975 mg PO NOW ONE Stop: 03/21/22 20:55 Last Admin: 03/21/22 20:58 Dose: 975 mg Documented By: BARAK Sodium Chloride (Normal Saline 0.9%) 1,000 mls @ 1,000 mls/hr IV BOLUS ONE Stop: 03/21/22 20:40 Last Infusion: 03/21/22 20:55 Dose: 0 mls/hr Documented By: Admin: 03/21/22 19:50 Dose: 1,000 mls/hr Documented By: BARAK Vital Signs Vital signs: Vital Signs - 8 hr 03/21/22 16:08 03/21/22 19:16 03/21/22 19:21 Temperature 98.0 F Pulse Rate 76 73 75 Respiratory Rate 16 Blood Pressure 140/70 Pulse Oximetry 99 96 93 Oxygen Delivery Method Room Air 03/21/22 19:21 03/21/22 19:32 03/21/22 19:33 Temperature Pulse Rate 75 75 Respiratory Rate Blood Pressure 158/73 H Pulse Oximetry 95 98 Oxygen Delivery Method Room Air 03/21/22 19:33 03/21/22 20:00 03/21/22 20:30 Temperature Pulse Rate 72 Respiratory Rate 34 H Blood Pressure 151/75 H 137/68 Pulse Oximetry 97 Oxygen Delivery Method 03/21/22 20:30 Temperature Pulse Rate 72 Respiratory Rate 41 H Blood Pressure Pulse Oximetry 97 Oxygen Delivery Method <Ac Forrest DO - Last Filed: 03/22/22 07:12> Orders Ordered: Discontinued Medications Acetaminophen (Acetaminophen 325 Mg Tablet) 975 mg PO NOW ONE Stop: 03/21/22 20:55 Last Admin: 03/21/22 20:58 Dose: 975 mg Documented By: BARAK Sodium Chloride (Normal Saline 0.9%) 1,000 mls @ 1,000 mls/hr IV BOLUS ONE Stop: 03/21/22 20:40 Last Infusion: 03/21/22 20:55 Dose: 0 mls/hr Documented By: Admin: 03/21/22 19:50 Dose: 1,000 mls/hr Documented By: BARAK Vital Signs Vital signs: Vital Signs - 8 hr 03/21/22 16:08 03/21/22 19:16 03/21/22 19:21 Temperature 98.0 F Pulse Rate 76 73 75 Respiratory Rate 16 Blood Pressure 140/70 Pulse Oximetry 99 96 93 Oxygen Delivery Method Room Air 03/21/22 19:21 03/21/22 19:32 03/21/22 19:33 Temperature Pulse Rate 75 75 Respiratory Rate Blood Pressure 158/73 H Pulse Oximetry 95 98 Oxygen Delivery Method Room Air 03/21/22 19:33 03/21/22 20:00 03/21/22 20:30 Temperature Pulse Rate 72 Respiratory Rate 34 H Blood Pressure 151/75 H 137/68 Pulse Oximetry 97 Oxygen Delivery Method 03/21/22 20:30 Temperature Pulse Rate 72 Respiratory Rate 41 H Blood Pressure Pulse Oximetry 97 Oxygen Delivery Method MDM - Extremity (Nontraumatic) <Alma Schumacher PA-C - Last Filed: 03/21/22 22:02> Lab Data Result diagrams: 03/21/22 18:31 03/21/22 18:31 Labs: Lab Results 03/21/22 03/21/22 03/21/22 Range/Units 18:31 18:31 18:31 WBC 10.2 (4.5-11.0) X10^3/uL RBC 4.41 (4.0-5.2) X10^6/uL Hgb 13.8 (12.0-16.0) g/dL Hct 40.3 (36-46) % MCV 91.5 (80-100) fL MCH 31.4 (26-34) PG MCHC 34.3 (30-36) % RDW 12.8 (11.6-14.8) % Plt Count 229 (150-400) X10^3/uL Neut % (Auto) 80.6 H (50-75) % Lymph % (Auto) 12.2 L (25-40) % Estill % (Auto) 6.2 (3-14) % Eos % (Auto) 0.4 L (2-4) % Baso % (Auto) 0.6 (0-2) % Neut # (Auto) 8200 H (5796-6331) /uL Lymph # (Auto) 1300 (5563-1590) /uL [place] # (Auto) 600 (0-900) /uL Eos # (Auto) 0 (0-450) /uL Baso # (Auto) 100 (0-100) /uL ESR (0-20) MM/HR PT 11.4 (10.1-12.7) SECONDS INR 1.0 (0.9-1.3) APTT 26 (26-36) SECONDS Sodium 141 (137-145) mmol/L Potassium 3.8 (3.4-5.1) mmol/L Chloride 103 (98-107) mmol/L Carbon Dioxide 25 (22-32) mmol/L BUN 23 H (7-17) mg/dL Creatinine 0.86 (0.52-1.04) mg/dL Estimated GFR > 60 (>60) mL/min BUN/Creatinine Ratio 26.7 H (6-22) Glucose 124 H (80-110) mg/dL Lactate (0.7-2.1) mmol/L Uric Acid (2.5-6.2) mg/dL Calcium 9.7 (8.4-10.2) mg/dL Total Bilirubin 0.6 (0.2-1.3) mg/dL AST 22 (14-36) IU/L ALT 22 (<35) IU/L Alkaline Phosphatase 83 (38-126) U/L C-Reactive Protein (<1.0) mg/dL Total Protein 7.6 (6.3-8.2) g/dL Albumin 4.4 (3.5-5.0) g/dL Globulin 3.2 (1.7-4.1) g/dL Albumin/Globulin Ratio 1.4 (1.0-2.8) Lipase 83 (23-300) U/L Procalcitonin 0.06 (<0.5) ng/mL Urine RBC (0-5/HPF) Urine WBC (0-5/HPF) Ur Squamous Epith Cells (0-5/HPF) Amorphous Sediment Urine Bacteria (None) SARS-CoV-2 (PCR) (Negative) Influenza A (RT-PCR) (NEGATIVE) Influenza B (RT-PCR) (NEGATIVE) RSV (PCR) (Negative) 03/21/22 03/21/22 03/21/22 Range/Units 18:31 18:31 18:31 WBC (4.5-11.0) X10^3/uL RBC (4.0-5.2) X10^6/uL Hgb (12.0-16.0) g/dL Hct (36-46) % MCV (80-100) fL MCH (26-34) PG MCHC (30-36) % RDW (11.6-14.8) % Plt Count (150-400) X10^3/uL Neut % (Auto) (50-75) % Lymph % (Auto) (25-40) % [place] % (Auto) (3-14) % Eos % (Auto) (2-4) % Baso % (Auto) (0-2) % Neut # (Auto) (9199-0298) /uL Lymph # (Auto) (6663-4658) /uL [place] # (Auto) (0-900) /uL Eos # (Auto) (0-450) /uL Baso # (Auto) (0-100) /uL ESR 44 H (0-20) MM/HR PT (10.1-12.7) SECONDS INR (0.9-1.3) APTT (26-36) SECONDS Sodium (137-145) mmol/L Potassium (3.4-5.1) mmol/L Chloride (98-107) mmol/L Carbon Dioxide (22-32) mmol/L BUN (7-17) mg/dL Creatinine (0.52-1.04) mg/dL Estimated GFR (>60) mL/min BUN/Creatinine Ratio (6-22) Glucose (80-110) mg/dL Lactate 1.2 (0.7-2.1) mmol/L Uric Acid 5.6 (2.5-6.2) mg/dL Calcium (8.4-10.2) mg/dL Total Bilirubin (0.2-1.3) mg/dL AST (14-36) IU/L ALT (<35) IU/L Alkaline Phosphatase (38-126) U/L C-Reactive Protein 1.2 H (<1.0) mg/dL Total Protein (6.3-8.2) g/dL Albumin (3.5-5.0) g/dL Globulin (1.7-4.1) g/dL Albumin/Globulin Ratio (1.0-2.8) Lipase (23-300) U/L Procalcitonin (<0.5) ng/mL Urine RBC (0-5/HPF) Urine WBC (0-5/HPF) Ur Squamous Epith Cells (0-5/HPF) Amorphous Sediment Urine Bacteria (None) SARS-CoV-2 (PCR) (Negative) Influenza A (RT-PCR) (NEGATIVE) Influenza B (RT-PCR) (NEGATIVE) RSV (PCR) (Negative) 03/21/22 03/21/22 Range/Units 18:40 19:48 WBC (4.5-11.0) X10^3/uL RBC (4.0-5.2) X10^6/uL Hgb (12.0-16.0) g/dL Hct (36-46) % MCV (80-100) fL MCH (26-34) PG MCHC (30-36) % RDW (11.6-14.8) % Plt Count (150-400) X10^3/uL Neut % (Auto) (50-75) % Lymph % (Auto) (25-40) % [place] % (Auto) (3-14) % Eos % (Auto) (2-4) % Baso % (Auto) (0-2) % Neut # (Auto) (3075-8148) /uL Lymph # (Auto) (3882-3016) /uL [place] # (Auto) (0-900) /uL Eos # (Auto) (0-450) /uL Baso # (Auto) (0-100) /uL ESR (0-20) MM/HR PT (10.1-12.7) SECONDS INR (0.9-1.3) APTT (26-36) SECONDS Sodium (137-145) mmol/L Potassium (3.4-5.1) mmol/L Chloride (98-107) mmol/L Carbon Dioxide (22-32) mmol/L BUN (7-17) mg/dL Creatinine (0.52-1.04) mg/dL Estimated GFR (>60) mL/min BUN/Creatinine Ratio (6-22) Glucose (80-110) mg/dL Lactate (0.7-2.1) mmol/L Uric Acid (2.5-6.2) mg/dL Calcium (8.4-10.2) mg/dL Total Bilirubin (0.2-1.3) mg/dL AST (14-36) IU/L ALT (<35) IU/L Alkaline Phosphatase (38-126) U/L C-Reactive Protein (<1.0) mg/dL Total Protein (6.3-8.2) g/dL Albumin (3.5-5.0) g/dL Globulin (1.7-4.1) g/dL Albumin/Globulin Ratio (1.0-2.8) Lipase (23-300) U/L Procalcitonin (<0.5) ng/mL Urine RBC None seen (0-5/HPF) Urine WBC 0-1/hpf (0-5/HPF) Ur Squamous Epith Cells 1-5 /hpf (0-5/HPF) Amorphous Sediment 1+ Urine Bacteria Occasional (0-1) (None) SARS-CoV-2 (PCR) Negative (Negative) Influenza A (RT-PCR) Flu a negative (NEGATIVE) Influenza B (RT-PCR) Flu b negative (NEGATIVE) RSV (PCR) Negative (Negative) Urine Dip Bedside Urine Glucose Negative Bedside Urine Bilirubin - Negative Bedside Urine Ketone - Negative Urine Specific Bonneau 1.025 Bedside Urine Occult Blood - Negative Bedside Urine pH 5.5 Bedside Urine Protein - Negative Bedside Urine Urobilinogen - Negative Bedside Urine Nitrite - Negative Bedside Urine Leukocytes + 70 Esterase Imaging Data Right foot x-ray: Radiologist's Impression: ? 1. No visible bony or soft tissue abnormalities of the 2nd digit. MDM Narrative Medical decision making narrative: Discussed with patient and family etiologies for patient's symptoms considered including: Skin infection i.e. cellulitis of the dorsum of 2nd toe now progressing. Therefore recommend change her antibiotic from doxycycline to Keflex. Also advised to apply topical antibiotic ointment. Patient has had dizziness episode however after delivering infusion of normal saline, her dizziness resolved. Patient did admits she does not consume enough fluids Findings and discharge diagnosis discussed with patient/family followed by verbalization of understanding Recommended to follow-up on her multiple comorbidities with her PCP, in the [facility] appointment. Return precautions discussed with patient/family whom verbalize understanding. <Ac Forrest, DO - Last Filed: 03/22/22 07:12> Lab Data Labs: Lab Results 03/21/22 03/21/22 03/21/22 Range/Units 18:31 18:31 18:31 WBC 10.2 (4.5-11.0) X10^3/uL RBC 4.41 (4.0-5.2) X10^6/uL Hgb 13.8 (12.0-16.0) g/dL Hct 40.3 (36-46) % MCV 91.5 (80-100) fL MCH 31.4 (26-34) PG MCHC 34.3 (30-36) % RDW 12.8 (11.6-14.8) % Plt Count 229 (150-400) X10^3/uL Neut % (Auto) 80.6 H (50-75) % Lymph % (Auto) 12.2 L (25-40) % [place]ill % (Auto) 6.2 (3-14) % Eos % (Auto) 0.4 L (2-4) % Baso % (Auto) 0.6 (0-2) % Neut # (Auto) 8200 H (1300-5417) /uL Lymph # (Auto) 1300 (0897-2078) /uL [place] # (Auto) 600 (0-900) /uL Eos # (Auto) 0 (0-450) /uL Baso # (Auto) 100 (0-100) /uL ESR (0-20) MM/HR PT 11.4 (10.1-12.7) SECONDS INR 1.0 (0.9-1.3) APTT 26 (26-36) SECONDS Sodium 141 (137-145) mmol/L Potassium 3.8 (3.4-5.1) mmol/L Chloride 103 (98-107) mmol/L Carbon Dioxide 25 (22-32) mmol/L BUN 23 H (7-17) mg/dL Creatinine 0.86 (0.52-1.04) mg/dL Estimated GFR > 60 (>60) mL/min BUN/Creatinine Ratio 26.7 H (6-22) Glucose 124 H (80-110) mg/dL Lactate (0.7-2.1) mmol/L Uric Acid (2.5-6.2) mg/dL Calcium 9.7 (8.4-10.2) mg/dL Total Bilirubin 0.6 (0.2-1.3) mg/dL AST 22 (14-36) IU/L ALT 22 (<35) IU/L Alkaline Phosphatase 83 (38-126) U/L C-Reactive Protein (<1.0) mg/dL Total Protein 7.6 (6.3-8.2) g/dL Albumin 4.4 (3.5-5.0) g/dL Globulin 3.2 (1.7-4.1) g/dL Albumin/Globulin Ratio 1.4 (1.0-2.8) Lipase 83 (23-300) U/L Procalcitonin 0.06 (<0.5) ng/mL Urine RBC (0-5/HPF) Urine WBC (0-5/HPF) Ur Squamous Epith Cells (0-5/HPF) Amorphous Sediment Urine Bacteria (None) SARS-CoV-2 (PCR) (Negative) Influenza A (RT-PCR) (NEGATIVE) Influenza B (RT-PCR) (NEGATIVE) RSV (PCR) (Negative) 03/21/22 03/21/22 03/21/22 Range/Units 18:31 18:31 18:31 WBC (4.5-11.0) X10^3/uL RBC (4.0-5.2) X10^6/uL Hgb (12.0-16.0) g/dL Hct (36-46) % MCV (80-100) fL MCH (26-34) PG MCHC (30-36) % RDW (11.6-14.8) % Plt Count (150-400) X10^3/uL Neut % (Auto) (50-75) % Lymph % (Auto) (25-40) % [place]ill % (Auto) (3-14) % Eos % (Auto) (2-4) % Baso % (Auto) (0-2) % Neut # (Auto) (1972-5366) /uL Lymph # (Auto) (1707-2180) /uL [place]ill # (Auto) (0-900) /uL Eos # (Auto) (0-450) /uL Baso # (Auto) (0-100) /uL ESR 44 H (0-20) MM/HR PT (10.1-12.7) SECONDS INR (0.9-1.3) APTT (26-36) SECONDS Sodium (137-145) mmol/L Potassium (3.4-5.1) mmol/L Chloride (98-107) mmol/L Carbon Dioxide (22-32) mmol/L BUN (7-17) mg/dL Creatinine (0.52-1.04) mg/dL Estimated GFR (>60) mL/min BUN/Creatinine Ratio (6-22) Glucose (80-110) mg/dL Lactate 1.2 (0.7-2.1) mmol/L Uric Acid 5.6 (2.5-6.2) mg/dL Calcium (8.4-10.2) mg/dL Total Bilirubin (0.2-1.3) mg/dL AST (14-36) IU/L ALT (<35) IU/L Alkaline Phosphatase (38-126) U/L C-Reactive Protein 1.2 H (<1.0) mg/dL Total Protein (6.3-8.2) g/dL Albumin (3.5-5.0) g/dL Globulin (1.7-4.1) g/dL Albumin/Globulin Ratio (1.0-2.8) Lipase (23-300) U/L Procalcitonin (<0.5) ng/mL Urine RBC (0-5/HPF) Urine WBC (0-5/HPF) Ur Squamous Epith Cells (0-5/HPF) Amorphous Sediment Urine Bacteria (None) SARS-CoV-2 (PCR) (Negative) Influenza A (RT-PCR) (NEGATIVE) Influenza B (RT-PCR) (NEGATIVE) RSV (PCR) (Negative) 03/21/22 03/21/22 Range/Units 18:40 19:48 WBC (4.5-11.0) X10^3/uL RBC (4.0-5.2) X10^6/uL Hgb (12.0-16.0) g/dL Hct (36-46) % MCV (80-100) fL MCH (26-34) PG MCHC (30-36) % RDW (11.6-14.8) % Plt Count (150-400) X10^3/uL Neut % (Auto) (50-75) % Lymph % (Auto) (25-40) % [place]ill % (Auto) (3-14) % Eos % (Auto) (2-4) % Baso % (Auto) (0-2) % Neut # (Auto) (9576-6667) /uL Lymph # (Auto) (5915-0836) /uL [place]ill # (Auto) (0-900) /uL Eos # (Auto) (0-450) /uL Baso # (Auto) (0-100) /uL ESR (0-20) MM/HR PT (10.1-12.7) SECONDS INR (0.9-1.3) APTT (26-36) SECONDS Sodium (137-145) mmol/L Potassium (3.4-5.1) mmol/L Chloride (98-107) mmol/L Carbon Dioxide (22-32) mmol/L BUN (7-17) mg/dL Creatinine (0.52-1.04) mg/dL Estimated GFR (>60) mL/min BUN/Creatinine Ratio (6-22) Glucose (80-110) mg/dL Lactate (0.7-2.1) mmol/L Uric Acid (2.5-6.2) mg/dL Calcium (8.4-10.2) mg/dL Total Bilirubin (0.2-1.3) mg/dL AST (14-36) IU/L ALT (<35) IU/L Alkaline Phosphatase (38-126) U/L C-Reactive Protein (<1.0) mg/dL Total Protein (6.3-8.2) g/dL Albumin (3.5-5.0) g/dL Globulin (1.7-4.1) g/dL Albumin/Globulin Ratio (1.0-2.8) Lipase (23-300) U/L Procalcitonin (<0.5) ng/mL Urine RBC None seen (0-5/HPF) Urine WBC 0-1/hpf (0-5/HPF) Ur Squamous Epith Cells 1-5 /hpf (0-5/HPF) Amorphous Sediment 1+ Urine Bacteria Occasional (0-1) (None) SARS-CoV-2 (PCR) Negative (Negative) Influenza A (RT-PCR) Flu a negative (NEGATIVE) Influenza B (RT-PCR) Flu b negative (NEGATIVE) RSV (PCR) Negative (Negative) Urine Dip Bedside Urine Glucose Negative Bedside Urine Bilirubin - Negative Bedside Urine Ketone - Negative Urine Specific Bonneau 1.025 Bedside Urine Occult Blood - Negative Bedside Urine pH 5.5 Bedside Urine Protein - Negative Bedside Urine Urobilinogen - Negative Bedside Urine Nitrite - Negative Bedside Urine Leukocytes + 70 Esterase Discharge Plan Departure Patient Disposition: Home Clinical Impression: Cellulitis and abscess of toe of right foot, Gastritis due to nonsteroidal anti-inflammatory drug (NSAID) Instructions: DI for Cellulitis -- Adult, DI for Gastritis Activity Restrictions/Additional Instructions: *You have been diagnosed with right foot and toe cellulitis,and medication ( mostly Ibuprophen, indometacin ) induced gastritis *What to do: *Please continue to take your regular medications as directed. New medication prescriptions sent to your pharmacy: Keflex 500 g Mupirocin ointment Advised to soak right foot in Epsom salt, mixed with a couple of drops of Betadine solution For gastritis, PEPCID AC twice a day *Please follow up with your primary care provider in 2-3 days, Let them know you were seen in the Emergency Department and that we ask that you be seen in follow up. We will electronically transmit a record of today's note if your PCP is in our system also advise to seek podiatry care. *Return to Emergency Department if you should have any new, worsening or concerning symptoms, such as fever greater than 101 F, shaking chills, worsening pain, Prescriptions: New cephalexin 500 mg capsule 500 mg PO TID Qty: 30 0RF mupirocin 2 % ointment 1 applic topical TID Qty: 22 1RF Rx Instructions: apply thin film to right toe famotidine [Pepcid AC] 20 mg tablet 20 mg PO BID Qty: 20 0RF Rx Instructions: for stomach pains, nausea No Action amlodipine 2.5 mg tablet 2.5 mg PO DAILY indomethacin 50 mg capsule 50 mg PO TID PRN (Reason: gouty flare) Qty: 60 0RF Rx Instructions: administer with food or milk losartan 25 mg tablet 25 mg PO DAILY Qty: 90 1RF hydrochlorothiazide 12.5 mg tablet 12.5 mg PO DAILY Qty: 90 3RF [id number] Tablet 1 tab PO DAILY omeprazole magnesium [Prilosec OTC] 20 mg tablet,delayed release (DR/EC) 20 mg PO DAILY alprazolam 0.25 mg tablet 0.125 mg PO TID PRN (Reason: anxiety) Qty: 30 0RF clobetasol 0.05 % ointment 1 g topical DAILY Qty: 30 2RF Rx Instructions: Apply finger tip worth to vulva and vagina once daily for 14 days, then 1-2 times weekly. conjugated estrogens 0.625 mg/gram cream 0.625 mg vaginal DAILY Qty: 30 2RF Rx Instructions: Apply to vulva and vagina once daily for 14 days, then 1-2x weekly. Victoza 2-Balbir 0.6 mg/0.1 mL (18 mg/3 mL) pen injector 1.2 mg SUBCUT DAILY doxycycline hyclate 100 mg capsule 100 mg PO BID Qty: 20 0RF doxycycline hyclate 100 mg tablet 100 mg PO BID Qty: 20 0RF simvastatin 20 mg tablet 20 mg PO DAILY (DME) Respironics DreamStation See Rx Instructions .Route .MEDSUPPLY Rx Instructions: CPAP DreamStation Min Pressure: 6 Max Pressure: 16 Referrals: Trevin Arnold MD [Primary Care Provider] - Visit Report Forms: Patient Portal/API <Ac Forrest, DO - Last Filed: 03/22/22 07:12> Cosign ED Attending Cosignature Attestation: Dr Forrest Co-Sign Statement: I was available for consultation during this patient's emergency department visit. This chart is signed by myself for administrative purposes only. I did not have direct contact with this patient during this visit. They were seen independently by the APC.
--- NOTE | 2022-03-21 17:16 | PC.NURSE ---
pt daughter asked for juice my mom feels like she needs juice i offered to check her glucose no she can tell, she just needs the orange juice took oj to pt in waiting room.
--- NOTE | 2022-03-21 18:39 | DI.RAD.S_ITS ---
PROCEDURE: XR FOOT RT MIN 3V INDICATIONS: swelling right 2nd toe, pain out of proportion TECHNIQUE: 3 views of the foot were acquired. COMPARISON: [facility], CR, XR FOOT RT MIN 3V, 03/19/2022, 21:06. FINDINGS: Bones: No fractures or dislocations. No suspicious bony lesions. Moderate degenerative changes at the 1st MTP joint. Soft tissues: No tibiotalar joint effusion. Achilles tendon appears normal. No radiodense foreign bodies or soft tissue gas. Mild atherosclerotic vascular calcification. IMPRESSION: 1. No visible bony or soft tissue abnormalities of the 2nd digit. Dictated by: Su Jackson M.D. on 03/21/2022 at 18:57 Approved by: Su Jackson M.D. on 03/21/2022 at 18:59
[2022-03-21 18:47] LABS: Add Manual Diff / Slide Review NO; Basophils Absolute Auto 100 /uL (0-100); Basophils Percent Auto 0.6 % (0-2); Eosinophils Absolute Auto 0 /uL (0-450); Eosinophils Percent Auto 0.4 % (2-4); Hematocrit 40.3 % (36-46); Hemoglobin 13.8 g/dL (12.0-16.0); Lymphocytes Absolute Auto 1300 /uL (1100-4500); Lymphocytes Percent Auto 12.2 % (25-40); Mean Corpuscular HGB Conc 34.3 % (30-36); Mean Corpuscular Hemoglobin 31.4 PG (26-34); Mean Corpuscular Volume 91.5 fL (80-100); Monocytes Absolute Auto 600 /uL (0-900); Monocytes Percent Auto 6.2 % (3-14); Neutrophils Absolute Auto 8200 /uL (1500-7000); Neutrophils Percent Auto 80.6 % (50-75); Platelet Count 229 X10^3/uL (150-400); Red Blood Cell Count 4.41 X10^6/uL (4.0-5.2); Red Cell Distribution Width 12.8 % (11.6-14.8); White Blood Cell Count 10.2 X10^3/uL (4.5-11.0)
[2022-03-21 18:50] LABS: Prothrombin Time 11.4 SECONDS (10.1-12.7)
[2022-03-21 18:52] LABS: PTT Partial Thromboplastin Tim 26 SECONDS (26-36)
[2022-03-21 18:54] LABS: Alanine Aminotransferase 22 IU/L (<35); Albumin 4.4 g/dL (3.5-5.0); Albumin Globulin Ratio 1.4 (1.0-2.8); Alkaline Phosphatase 83 U/L (38-126); Aspartate Aminotransferase 22 IU/L (14-36); BUN Creatinine Ratio 26.7 (6-22); Bilirubin Total 0.6 mg/dL (0.2-1.3); Blood Urea Nitrogen 23 mg/dL (7-17); Calcium 9.7 mg/dL (8.4-10.2); Carbon Dioxide 25 mmol/L (22-32); Chloride 103 mmol/L (98-107); Estimated Glomerular Filt Rate > 60 mL/min (>60); Globulin 3.2 g/dL (1.7-4.1); Glucose 124 mg/dL (80-110); HEMOLYSIS < 15 (0-50); Lactate (Lactic Acid) 1.2 mmol/L (0.7-2.1); Lipase 83 U/L (23-300); Potassium 3.8 mmol/L (3.4-5.1); Sodium 141 mmol/L (137-145); Total Protein 7.6 g/dL (6.3-8.2)
[2022-03-21 18:58] LABS: C-Reactive Protein Quant 1.2 mg/dL (<1.0); Uric Acid 5.6 mg/dL (2.5-6.2)
[2022-03-21 19:06] LABS: Erythrocyte Sedimentation Rate 44 MM/HR (0-20)
[2022-03-21 19:11] LABS: Procalcitonin 0.06 ng/mL (<0.5)
--- NOTE | 2022-03-21 19:26 | PC.NURSE ---
Assisting pt in to wc to go to bathroom. Pt stood w/ minimal assist and then became weak and started to fall stating i'm going. Pt assisted to w/c, pulse palpated at @30. Pt quickly became a/o x 4, HR returned to 72 w/o intervention.
[2022-03-21 19:29] LABS: Influenza A - CEPHEID Flu A NEGATIVE (NEGATIVE); Influenza B - CEPHEID Flu B NEGATIVE (NEGATIVE); Respiratory Syncytial Virus Negative (Negative)
[2022-03-21 19:30] LABS: COVID-19 CEPHEID 4-PLEX PCR Negative (Negative)
[2022-03-21] MEDS: SODIUM CHLORIDE 0.9% 1,000 ML 1000 ML IV (19:50)
[2022-03-21 19:58] LABS: Amorphous Sediment Urine 1+; Bacteria Urine Occasional (0-1); RBC Urine None Seen (0-5/HPF); Squamous Epithelial Cell Urine 1-5 /HPF (0-5/HPF); WBC Urine 0-1/HPF (0-5/HPF)
[2022-03-21] MEDS: ACETAMINOPHEN 325 MG TABLET 975 MG PO (20:58)
--- NOTE | 2022-03-21 21:17 | PC.NURSE ---
Patient reports cellulitis of right third toe since . Has been on abx. Feels as though she is not getting better. Has had upper abdominal discomfort and nausea. Reports she is taking lots of ibuprofen. She also reports room spinning dizziness, vertigo which she has had in the past. States she is not drinking enough water. Also reports she is having pain in her right foot every night that is unrelieved by her dilaudid and thinks it is nerve pain. Provider aware.
== END 2022-03-21 21:24 | disposition home or self-care (01) ==
PROVIDERS: Emergency Provider Physician Assistant Medical; PCP Internal Medicine
DX: L03.031 Cellulitis of right toe (principal); K29.60 Other gastritis without bleeding; R10.10 Upper abdominal pain, unspecified; R11.10 Vomiting, unspecified; Z79.899 Other long term (current) drug therapy; Z20.822 Contact with and (suspected) exposure to COVID-19
CPT/HCPCS: 0241U; 36415; 73630; 80053; 81003; 81015; 83605; 83690; 84145; 84550; 85025; 85610; 85651; 85730; 86140; 87040; 87086; 93005; 96360; 99284

== ENCOUNTER 2022-08-27 18:55 | Emergency (ER) | payer MEDICARE, SELFPAY ==
[2022-08-27] VITALS (8 sets, daily range): BP systolic 163–184; BP diastolic 77–93; PULSE 68–78; RESP 18–32; TEMP 36.5–37.4; O2SAT 96–99; BMI 26.9
--- NOTE | 2022-08-27 19:06 | DI.RAD.S_ITS ---
PROCEDURE: XR CHEST 1V INDICATIONS: Shortness of breath TECHNIQUE: One view of the chest was acquired. COMPARISON: [facility], CR, XR CHEST 1V, 04/05/2018, 16:27. [facility], CR, XR CHEST 1V, 09/05/2019, 15:19. [facility], CR, XR CHEST 1V, 11/28/2020, 16:44. FINDINGS: Surgical changes and devices: Cholecystectomy clips are seen. Lumbar spine fixation hardware is partially seen. Lungs and pleura: Lungs are clear. No pleural effusions or pneumothorax. Mediastinum: The cardiac contours are within normal limits. The aorta demonstrates calcification and tortuosity. Bones and chest wall: No suspicious bony lesions. Age-appropriate bony degenerative changes are seen. S-shaped scoliotic curvature is seen. Overlying soft tissues appear unremarkable. IMPRESSION: No acute cardiopulmonary process is seen. A single live intrauterine is seen. Dictated by: Peter Wilson M.D. on 08/27/2022 at 19:16 Approved by: Peter Wilson M.D. on 08/27/2022 at 19:18
[2022-08-27 19:36] LABS: Prothrombin Time 11.2 SECONDS (10.1-12.7)
[2022-08-27 19:41] LABS: Lactate (Lactic Acid) 0.9 mmol/L (0.7-2.1)
[2022-08-27 19:42] LABS: Alanine Aminotransferase 22 IU/L (<35); Albumin 4.3 g/dL (3.5-5.0); Albumin Globulin Ratio 1.4 (1.0-2.8); Alkaline Phosphatase 91 U/L (38-126); Aspartate Aminotransferase 26 IU/L (14-36); BUN Creatinine Ratio 18.8 (6-22); Bilirubin Total 0.5 mg/dL (0.2-1.3); Blood Urea Nitrogen 19 mg/dL (7-17); Calcium 9.1 mg/dL (8.4-10.2); Carbon Dioxide 25 mmol/L (22-32); Chloride 109 mmol/L (98-107); Estimated Glomerular Filt Rate 56 mL/min (>60); Glucose 93 mg/dL (80-110); HEMOLYSIS 22 (0-50); Potassium 3.9 mmol/L (3.4-5.1); Sodium 142 mmol/L (137-145); Total Protein 7.3 g/dL (6.3-8.2)
[2022-08-27 19:54] LABS: NT-proBNP (BNP-Adult 18+) 72 pg/mL (<450); Troponin I < 0.012 ng/mL (0.01-0.034)
[2022-08-27 20:02] LABS: Add Manual Diff / Slide Review NO; Basophils Absolute Auto 100 /uL (0-100); Eosinophils Absolute Auto 300 /uL (0-450); Eosinophils Percent Auto 2.7 % (2-4); Hematocrit 37.5 % (36-46); Hemoglobin 12.9 g/dL (12.0-16.0); Lymphocytes Absolute Auto 2300 /uL (1100-4500); Lymphocytes Percent Auto 23.3 % (25-40); Mean Corpuscular HGB Conc 34.3 % (30-36); Mean Corpuscular Hemoglobin 31.6 PG (26-34); Mean Corpuscular Volume 92.2 fL (80-100); Monocytes Absolute Auto 800 /uL (0-900); Monocytes Percent Auto 8.6 % (3-14); Neutrophils Absolute Auto 6400 /uL (1500-7000); Neutrophils Percent Auto 64.4 % (50-75); Platelet Count 249 X10^3/uL (150-400); Red Blood Cell Count 4.07 X10^6/uL (4.0-5.2); White Blood Cell Count 9.9 X10^3/uL (4.5-11.0)
[2022-08-27 21:17] LABS: COVID19 -Nasal RAPID Negative (Negative)
--- NOTE | 2022-08-27 23:18 | ED.URI ---
HPI - URI/Sore Throat General Chief Complaint: Upper Respiratory Symptoms Stated Complaint: Uncontrollable coughing, Hard to breathe Time Seen by Provider: 08/27/22 23:04 Source: patient Mode of arrival: Ambulatory History of Present Illness HPI Narrative: Patient here with care provider. Complaints 1 week dry coughing postnasal drip runny nose no fever chills. No itchy watery eyes. No known sick contacts. Denies any chest pain. Patient states no history of lung disease asthma COPD. Does not smoke. Patient states has had incessant coughing. Related Data Home Medications Medication Instructions Recorded Confirmed amlodipine 2.5 mg tablet 2.5 mg PO DAILY 12/03/17 12/18/21 simvastatin 20 mg tablet 20 mg PO DAILY 01/23/19 12/18/21 liraglutide 0.6 mg/0.1 mL (18 mg/3 1.2 mg SUBCUT DAILY 07/02/20 12/18/21 mL) subcutaneous pen injector ([employer] 2-Balbir) Respironics DreamStation 12/25/20 12/18/21 [id number]-[id number] tablet 1 tab PO DAILY 01/17/21 12/18/21 omeprazole magnesium 20 mg 20 mg PO DAILY 01/17/21 12/18/21 tablet,delayed release (Prilosec OTC) Previous Rx's Medication Instructions Recorded alprazolam 0.25 mg tablet 0.125 mg PO TID PRN anxiety #30 01/17/21 tabs indomethacin 50 mg capsule 50 mg PO TID PRN gouty flare #60 04/09/21 caps clobetasol 0.05 % topical ointment 1 g topical DAILY lichen sclerosis 05/06/21 #30 grams conjugated estrogens 0.625 mg/gram 0.625 mg vaginal DAILY lichen 05/06/21 vaginal cream sclerosis #30 grams losartan 25 mg tablet 25 mg PO DAILY #90 tabs 06/12/21 hydrochlorothiazide 12.5 mg tablet 12.5 mg PO DAILY #90 tabs 06/24/21 doxycycline hyclate 100 mg capsule 100 mg PO BID #20 caps 03/19/22 doxycycline hyclate 100 mg tablet 100 mg PO BID #20 tabs 03/19/22 cephalexin 500 mg capsule 500 mg PO TID #30 caps 03/21/22 famotidine 20 mg tablet (Pepcid AC) 20 mg PO BID #20 tabs 03/21/22 mupirocin 2 % topical ointment 1 applic topical TID #22 grams 03/21/22 benzonatate 100 mg capsule 100 mg PO TID PRN cough #20 caps 08/27/22 methylprednisolone 4 mg tablets in See Rx Instructions PO .COMPLEX 08/27/22 a dose pack (Medrol (Balbir)) #21 ea amoxicillin 500 mg-potassium 1 tab PO Q8H PNA, bacterial 09/02/22 clavulanate 125 mg tablet sinusitis, otitis media 10 days (Augmentin) #30 tabs benzonatate 100 mg capsule 100 mg PO TID PRN cough #21 caps 09/02/22 Allergies Allergy/AdvReac Type Severity Reaction Status Date / Time Opioids - Morphine Analogues Allergy Verified 08/27/22 19:06 Review of Systems Review of Systems Narrative: GENERAL: negative chills, fatigue, malaise, fever, sweats. HEENT: negative sinus pain, ear pain, sore throat, positive rhinorrhea RESPIRATORY: negative dyspnea, positive cough CARDIOVASCULAR: negative chest pain, palpitations GASTROINTESTINAL: negative nausea, vomiting, abdominal pain : negative dysuria, frequency, hematuria MUSCULOSKELETAL: negative muscle or bony pain SKIN: negative rash, skin lesions NEUROLOGIC: negative weakness, numbness ROS Unobtainable: All systems reviewed & are unremarkable except as noted in HPI and below Patient History Medical History Bunion, left foot Cataracts, bilateral Chicken pox Chronic back pain Diabetes mellitus type 2, noninsulin dependent FHx: breast cancer in first degree relative Generalized anxiety disorder GERD (gastroesophageal reflux disease) Gout H/O vaginal delivery History of esophageal stricture History of renal insufficiency HTN (hypertension) Lichen sclerosus Measles Mixed hyperlipidemia Mumps Obstructive sleep apnea Restless leg syndrome Rosacea Vertigo Vulvar lesion Surgical History Anesthesia History of lumbar spinal fusion History of total abdominal hysterectomy S/P appendectomy Status post total hip replacement, bilateral Family History Mother Breast cancer History of heart disease Sister Breast cancer Family/Other Breast cancer Father History of heart disease Social History marital status: household members: spouse (with dementia) lives independently: Yes caregiver/support person: No education level: master's degree (clinical psychologist, retired) Smoking Status: Never smoker alcohol intake: never Smoking Status: Never smoker alcohol intake frequency: 0-2 drinks per day Substance Use Type: does not use Exam Narrative Exam Narrative: GENERAL: in no distress, not toxic not dyspneic HEAD: Normocephalic. EYES: Pupils equal round ENT: Mucous membranes moist., there is bilateral nasal mucosa erythema edema and watery clear discharge. NECK: Trachea midline. CARDIOVASCULAR: Regular rate and rhythm without murmurs RESPIRATORY: Clear to auscultation. Breath sounds equal bilaterally. Mild bilateral upper lung rhonchi but no wheezing or rales. Patient is speaking full sentences but has interrupted dry cough. Continuing sniffing her nose GASTROINTESTINAL: Abdomen soft, non-tender EXTREMITIES: No gross deformities. BACK: No flank tenderness. NEURO: AOx4. SKIN: Warm and dry PSYCH: Not anxious, is cooperative Initial Vital Signs Initial Vital Signs: Vital Signs Temperature 99.3 F 08/27/22 18:59 Pulse Rate 76 08/27/22 18:59 Respiratory Rate 18 08/27/22 18:59 Blood Pressure 163/77 H 08/27/22 18:59 Pulse Oximetry 97 08/27/22 18:59 Oxygen Delivery Method Room Air 08/27/22 18:59 Course Orders Ordered: Discontinued Medications Albuterol (Albuterol Hfa Prepack) 1 box MISC SEEINSTR ONE Stop: 08/27/22 23:14 Last Admin: 08/27/22 23:20 Dose: 1 box Documented By: MR Benzonatate (Benzonatate 100 Mg Capsule) 100 mg PO NOW ONE Stop: 08/27/22 23:17 Last Admin: 08/27/22 23:28 Dose: 100 mg Documented By: RUDI Oxymetazoline HCl (Oxymetazoline Nasal [place] 15 Ml) 2 sprays NASAL NOW ONE Stop: 08/27/22 23:17 Last Admin: 08/27/22 23:28 Dose: 2 sprays Documented By: RUDI Prednisone (Prednisone 20 Mg Tablet) 40 mg PO NOW ONE Stop: 08/27/22 23:17 Last Admin: 08/27/22 23:28 Dose: 40 mg Documented By: GC Vital Signs Vital signs: Vital Signs - 8 hr 08/27/22 18:59 08/27/22 21:57 08/27/22 22:31 Temperature 99.3 F Pulse Rate 76 69 Respiratory Rate 18 18 Blood Pressure 163/77 H 170/89 H 171/83 H Pulse Oximetry 97 99 Oxygen Delivery Method Room Air Room Air 08/27/22 22:31 08/27/22 23:00 08/27/22 23:01 Temperature Pulse Rate 69 68 70 Respiratory Rate 32 H 28 H Blood Pressure Pulse Oximetry 97 99 98 Oxygen Delivery Method 08/27/22 23:01 08/27/22 23:07 08/27/22 23:07 Temperature Pulse Rate 69 Respiratory Rate 26 H Blood Pressure 184/82 H 182/88 H Pulse Oximetry 99 Oxygen Delivery Method 08/27/22 23:30 08/27/22 23:30 Temperature Pulse Rate 69 Respiratory Rate 32 H Blood Pressure 178/93 H Pulse Oximetry Oxygen Delivery Method MDM - URI/Sore Throat Lab Data 08/27/22 19:20 08/27/22 19:20 Labs: Lab Results 08/27/22 08/27/22 08/27/22 Range/Units 19:07 19:20 19:20 WBC 9.9 (4.5-11.0) X10^3/uL RBC 4.07 (4.0-5.2) X10^6/uL Hgb 12.9 (12.0-16.0) g/dL Hct 37.5 (36-46) % MCV 92.2 (80-100) fL MCH 31.6 (26-34) PG MCHC 34.3 (30-36) % RDW 13.0 (11.6-14.8) % Plt Count 249 (150-400) X10^3/uL Neut % (Auto) 64.4 (50-75) % Lymph % (Auto) 23.3 L (25-40) % Rains % (Auto) 8.6 (3-14) % Eos % (Auto) 2.7 (2-4) % Baso % (Auto) 1.0 (0-2) % Neut # (Auto) 6400 (8314-3916) /uL Lymph # (Auto) 2300 (7887-4100) /uL Rains # (Auto) 800 (0-900) /uL Eos # (Auto) 300 (0-450) /uL Baso # (Auto) 100 (0-100) /uL PT 11.2 (10.1-12.7) SECONDS INR 1.0 (0.9-1.3) Sodium (137-145) mmol/L Potassium (3.4-5.1) mmol/L Chloride (98-107) mmol/L Carbon Dioxide (22-32) mmol/L BUN (7-17) mg/dL Creatinine (0.52-1.04) mg/dL Estimated GFR (>60) mL/min BUN/Creatinine Ratio (6-22) Glucose (80-110) mg/dL Lactate (0.7-2.1) mmol/L Calcium (8.4-10.2) mg/dL Total Bilirubin (0.2-1.3) mg/dL AST (14-36) IU/L ALT (<35) IU/L Alkaline Phosphatase (38-126) U/L Troponin I (0.01-0.034) ng/mL NT-Pro-B Natriuret Pep (<450) pg/mL Total Protein (6.3-8.2) g/dL Albumin (3.5-5.0) g/dL Globulin (1.7-4.1) g/dL Albumin/Globulin Ratio (1.0-2.8) Chlamy pneumoniae PCR (Not Detect) Adenovirus (PCR) (Not Detect) B. pertussis DNA (PCR) (Not Detecte) B.parapertussis DNA PCR (Not Detecte) Coronavirus OC43 (PCR) (Not Detect) Coronavirus HKU1 (PCR) (Not Detect) Coronavirus 229E (PCR) (Not Detect) SARS-CoV-2 (PCR) Negative (Negative) Coronavirus NL63 (PCR) (Not Detect) Human Metapneumovir PCR (Not Detect) Influenza Type A (PCR) (Not Detect) Influenza Type B (PCR) (Not Detect) M. pneumoniae (PCR) (Not Detect) Parainfluenza 1 (PCR) (Not Detect) Parainfluenza 2 (PCR) (Not Detect) Parainfluenza 3 (PCR) (Not Detect) Parainfluenza 4 (PCR) (Not Detect) RSV (PCR) (Not Detect) Entero/Rhino (PCR) (Not Detect) 08/27/22 08/27/22 08/27/22 Range/Units 19:20 19:20 23:18 WBC (4.5-11.0) X10^3/uL RBC (4.0-5.2) X10^6/uL Hgb (12.0-16.0) g/dL Hct (36-46) % MCV (80-100) fL MCH (26-34) PG MCHC (30-36) % RDW (11.6-14.8) % Plt Count (150-400) X10^3/uL Neut % (Auto) (50-75) % Lymph % (Auto) (25-40) % Rains % (Auto) (3-14) % Eos % (Auto) (2-4) % Baso % (Auto) (0-2) % Neut # (Auto) (6376-8989) /uL Lymph # (Auto) (6179-4212) /uL Rains # (Auto) (0-900) /uL Eos # (Auto) (0-450) /uL Baso # (Auto) (0-100) /uL PT (10.1-12.7) SECONDS INR (0.9-1.3) Sodium 142 (137-145) mmol/L Potassium 3.9 (3.4-5.1) mmol/L Chloride 109 H (98-107) mmol/L Carbon Dioxide 25 (22-32) mmol/L BUN 19 H (7-17) mg/dL Creatinine 1.01 (0.52-1.04) mg/dL Estimated GFR 56 L (>60) mL/min BUN/Creatinine Ratio 18.8 (6-22) Glucose 93 (80-110) mg/dL Lactate 0.9 (0.7-2.1) mmol/L Calcium 9.1 (8.4-10.2) mg/dL Total Bilirubin 0.5 (0.2-1.3) mg/dL AST 26 (14-36) IU/L ALT 22 (<35) IU/L Alkaline Phosphatase 91 (38-126) U/L Troponin I < 0.012 (0.01-0.034) ng/mL NT-Pro-B Natriuret Pep 72 (<450) pg/mL Total Protein 7.3 (6.3-8.2) g/dL Albumin 4.3 (3.5-5.0) g/dL Globulin 3.0 (1.7-4.1) g/dL Albumin/Globulin Ratio 1.4 (1.0-2.8) Chlamy pneumoniae PCR Not detected (Not Detect) Adenovirus (PCR) Not detected (Not Detect) B. pertussis DNA (PCR) Not detected (Not Detecte) B.parapertussis DNA PCR Not detected (Not Detecte) Coronavirus OC43 (PCR) Not detected (Not Detect) Coronavirus HKU1 (PCR) Not detected (Not Detect) Coronavirus 229E (PCR) Not detected (Not Detect) SARS-CoV-2 (PCR) Not detected (Negative) Coronavirus NL63 (PCR) Not detected (Not Detect) Human Metapneumovir PCR Not detected (Not Detect) Influenza Type A (PCR) Not detected (Not Detect) Influenza Type B (PCR) Not detected (Not Detect) M. pneumoniae (PCR) Not detected (Not Detect) Parainfluenza 1 (PCR) Not detected (Not Detect) Parainfluenza 2 (PCR) Not detected (Not Detect) Parainfluenza 3 (PCR) Not detected (Not Detect) Parainfluenza 4 (PCR) Not detected (Not Detect) RSV (PCR) Not detected (Not Detect) Entero/Rhino (PCR) Not detected (Not Detect) Imaging Data Chest x-ray: Radiologist's Impression: [address] [address] XRay Report Signed Patient: Krystin Calderón MR#: [id number] : 1940 Acct:[id number] Age/Sex: 82 / F Date of Service: 08/27/22 Loc: ED Accession Number: [id number] ?? Procedure: XR chest 1V Ordering Provider: Jp Hernandez MD PROCEDURE:? XR CHEST 1V ? INDICATIONS:? Shortness of breath ? TECHNIQUE:? One view of the chest was acquired.? ? COMPARISON:? [facility], CR, XR CHEST 1V, 04/05/2018, 16:27.? [facility], CR, XR CHEST 1V, 09/05/2019, 15:19.? [facility], CR, XR CHEST 1V, 11/28/2020, 16:44. ? FINDINGS:? ? Surgical changes and devices:? Cholecystectomy clips are seen.? Lumbar spine fixation hardware is partially seen. ? Lungs and pleura:? Lungs are clear.? No pleural effusions or pneumothorax.? ? Mediastinum:? The cardiac contours are within normal limits. The aorta demonstrates calcification and tortuosity. ? Bones and chest wall:? No suspicious bony lesions.? Age-appropriate bony degenerative changes are seen.? S-shaped scoliotic curvature is seen. ? Overlying soft tissues appear unremarkable.? IMPRESSION:? ? No acute cardiopulmonary process is seen.? ? A single live intrauterine is seen. ? ? ? Dictated by: Peter Wilson M.D. on 08/27/2022 at 19:16 ? ? Approved by: Peter Wilson M.D. on 08/27/2022 at 19:18 ? MDM Narrative Medical decision making narrative: Patient here with care provider. Complaints 1 week dry coughing postnasal drip runny nose no fever chills. No itchy watery eyes. No known sick contacts. Denies any chest pain. Patient states no history of lung disease asthma COPD. Does not smoke. Patient states has had incessant coughing. After history and exam CBC CMP troponin chest x-ray EKG COVID swab inhaler prednisone Afrin MDM CC: Cough cold congestion Complicating co-morbidities: History of diabetes Data collected from: Patient Medical records reviewed: No recent visits for this complaint Differential considered: Includes but not limited to seasonal allergies allergic rhinitis viral infection pneumonia postnasal drip Exam documented above, pertinent findings include: Dry cough/clear rhinitis Lab Test results independently reviewed as above. Pertinent findings: WBC 9.9 INR 1.0 sodium 142 potassium 3.9 BUN 19 GFR 56 glucose 93 troponin less than 0.012 COVID negative Independently reviewed EKG as above normal sinus rhythm rate [address] elevation or depression Imaging studies independently reviewed: Chest x-ray no acute proces Treatments: Inhaler/prednisone/Tessalon Perles/Afrin spray Re-evaluations: Reviewed results with patient, she does desire prednisone to help clear out her nose and dry the nose. Also this may help for bronchospasm. Patient symptoms improved/coughing with inhaler and prednisone and Tessalon Perles. Return precautions reviewed patient. They did not want to wait for results of the viral panel. 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 They will call back tomorrow for results. Return precautions reviewed, she does have family doctor follow up within a week. Nontoxic at discharge. Reviewed with her this is likely viral bronchitis or allergic bronchitis. She is not had seasonal allergies in the past. Discussion: Appropriate for discharge home. Patient improved with medications provided here. No antibiotics indicated. Likely bronchitis. Patient does not want to wait for results of viral swab. Return precautions reviewed with her. No dyspnea. No hypoxia. She desires discharge home Diagnosis: Bronchitis Discharge Plan Departure Patient Disposition: Home Clinical Impression: Bronchitis Instructions: DI for Acute Bronchitis Activity Restrictions/Additional Instructions: Please see family doctor next week for re-evaluation. Continue steroid pack tomorrow. Please do continue taking your blood sugar checks before each meal as steroids can elevate your blood sugars. Continue home medications. No antibiotics are indicated at this time. You may call back for results of your viral swab tomorrow. Return if worse if any questions or concerns. Keep well hydrated. May use provided Afrin spray 2 sprays to each nostril daily. I recommended taking also coxi-ami-ndpmzzo allergy medication. May use provided inhaler 2 puffs every 4 hours as needed for cough. Cough medication has been provided for you as well in prescription form. Return if worse if any questions or concerns or if any trouble breathing. See family doctor in a week for re-evaluation, Call provided primary care referral phone number to establish family doctor. Call [phone] Prescriptions: New benzonatate 100 mg capsule 100 mg PO TID PRN (Reason: cough) Qty: 20 0RF methylprednisolone [Medrol (Balbir)] 4 mg tablets,dose pack See Rx Instructions .ROUTE .COMPLEX Qty: 21 0RF Rx Instructions: orally per package directions No Action amlodipine 2.5 mg tablet 2.5 mg PO DAILY indomethacin 50 mg capsule 50 mg PO TID PRN (Reason: gouty flare) Qty: 60 0RF Rx Instructions: administer with food or milk losartan 25 mg tablet 25 mg PO DAILY Qty: 90 1RF hydrochlorothiazide 12.5 mg tablet 12.5 mg PO DAILY Qty: 90 3RF [id number]-[id number] Tablet 1 tab PO DAILY omeprazole magnesium [Prilosec OTC] 20 mg tablet,delayed release (DR/EC) 20 mg PO DAILY alprazolam 0.25 mg tablet 0.125 mg PO TID PRN (Reason: anxiety) Qty: 30 0RF clobetasol 0.05 % ointment 1 g topical DAILY Qty: 30 2RF Rx Instructions: Apply finger tip worth to vulva and vagina once daily for 14 days, then 1-2 times weekly. conjugated estrogens 0.625 mg/gram cream 0.625 mg vaginal DAILY Qty: 30 2RF Rx Instructions: Apply to vulva and vagina once daily for 14 days, then 1-2x weekly. [employer]oza 2-Balbir 0.6 mg/0.1 mL (18 mg/3 mL) pen injector 1.2 mg SUBCUT DAILY doxycycline hyclate 100 mg capsule 100 mg PO BID Qty: 20 0RF doxycycline hyclate 100 mg tablet 100 mg PO BID Qty: 20 0RF cephalexin 500 mg capsule 500 mg PO TID Qty: 30 0RF mupirocin 2 % ointment 1 applic topical TID Qty: 22 1RF Rx Instructions: apply thin film to right toe famotidine [Pepcid AC] 20 mg tablet 20 mg PO BID Qty: 20 0RF Rx Instructions: for stomach pains, nausea amoxicillin-pot clavulanate [Augmentin] 500-125 mg tablet 1 tab PO Q8H 10 Days Qty: 30 0RF benzonatate 100 mg capsule 100 mg PO TID PRN (Reason: cough) Qty: 21 1RF simvastatin 20 mg tablet 20 mg PO DAILY (DME) Respironics DreamStation See Rx Instructions .Route .MEDSUPPLY Rx Instructions: CPAP DreamStation Min Pressure: 6 Max Pressure: 16 Referrals: Trevin Arnold MD [Primary Care Provider] - Stand Alone Forms: Patient Portal/API
[2022-08-27] MEDS: ALBUTEROL HFA PREPACK 1 BOX MISC (23:20)
[2022-08-27] MEDS: OXYMETAZOLINE NASAL SPRAY 15 ML 2 SPRAYS NASAL (23:28)
[2022-08-27] MEDS: BENZONATATE 100 MG CAPSULE PO (23:28)
[2022-08-27] MEDS: predniSONE 20 MG TABLET 40 MG PO (23:28)
[2022-08-28 01:51] LABS: Adenovirus Not Detected (Not Detect); B. parapertussis Not Detected (Not Detecte); Bordetella pertussis Not Detected (Not Detecte); Chlamydophila pneumoniae Not Detected (Not Detect); Coronavirus 229E Not Detected (Not Detect); Coronavirus HKU1 Not Detected (Not Detect); Coronavirus NL 63 Not Detected (Not Detect); Coronavirus OC43 Not Detected (Not Detect); Human Metapneumovirus Not Detected (Not Detect); Human Rhinovirus/Enterovirus Not Detected (Not Detect); Influenza A Not Detected (Not Detect); Influenza B Not Detected (Not Detect); Mycoplasma pneumoniae Not Detected (Not Detect); Parainfluenza Virus 1 Not Detected (Not Detect); Parainfluenza Virus 2 Not Detected (Not Detect); Parainfluenza Virus 3 Not Detected (Not Detect); Parainfluenza Virus 4 Not Detected (Not Detect); Respiratory Syncytial Virus Not Detected (Not Detect); SARS- CoV-2 Not Detected (Not Detecte)
== END 2022-08-27 23:46 | disposition home or self-care (01) ==
PROVIDERS: Emergency Provider Emergency Medicine; PCP Internal Medicine
DX: J40 Bronchitis, not specified as acute or chronic (principal); R06.02 Shortness of breath; Z20.822 Contact with and (suspected) exposure to COVID-19; Z79.899 Other long term (current) drug therapy
CPT/HCPCS: 36415; 71045; 80053; 83605; 83880; 84484; 85025; 85610; 87633; 87635; 93005; 99284; C9803; A9270

== ENCOUNTER 2022-09-02 11:01 | Emergency (ER) | payer MEDICARE, SELFPAY ==
[2022-09-02] VITALS (15 sets, daily range): BP systolic 130–157; BP diastolic 62–86; PULSE 71–78; RESP 18–22; TEMP 36.8; O2SAT 94–99; BMI 25.3
--- NOTE | 2022-09-02 11:36 | DI.RAD.S_ITS ---
PROCEDURE: XR CHEST 2V INDICATIONS: cough TECHNIQUE: 2 views of the chest were acquired. COMPARISON: [facility], CR, XR CHEST 1V, 08/27/2022, 19:33. [facility], CR, XR CHEST 1V, 11/28/2020, 16:44. FINDINGS: Surgical changes and devices: None. Lungs and pleura: Retrocardiac opacity. Mediastinum: Mediastinal contours are normal. Heart size is normal. Bones and chest wall: No suspicious bony abnormalities. Soft tissues appear unremarkable. IMPRESSION: Retrocardiac opacity, either atelectasis or infection. Dictated by: Dinesh Fernández M.D. on 09/02/2022 at 11:44 Approved by: Dinesh Fernández M.D. on 09/02/2022 at 11:44
[2022-09-02 12:42] LABS: Adenovirus Not Detected (Not Detect); B. parapertussis Not Detected (Not Detecte); Bordetella pertussis Not Detected (Not Detecte); Chlamydophila pneumoniae Not Detected (Not Detect); Coronavirus 229E Not Detected (Not Detect); Coronavirus HKU1 Not Detected (Not Detect); Coronavirus NL 63 Not Detected (Not Detect); Coronavirus OC43 Not Detected (Not Detect); Human Metapneumovirus Not Detected (Not Detect); Human Rhinovirus/Enterovirus Not Detected (Not Detect); Influenza A Not Detected (Not Detect); Influenza B Not Detected (Not Detect); Mycoplasma pneumoniae Not Detected (Not Detect); Parainfluenza Virus 1 Not Detected (Not Detect); Parainfluenza Virus 2 Not Detected (Not Detect); Parainfluenza Virus 3 Not Detected (Not Detect); Parainfluenza Virus 4 Not Detected (Not Detect); Respiratory Syncytial Virus Not Detected (Not Detect); SARS- CoV-2 Not Detected (Not Detecte)
--- NOTE | 2022-09-02 12:55 | ED_ITS ---
HPI - URI/Sore Throat <Mikayla Ayers PA-C - Last Filed: 09/02/22 17:39> General Chief Complaint: Upper Respiratory Symptoms Stated Complaint: 1 wk ago; bronchitis-symptoms worse, weakness Time Seen by Provider: 09/02/22 11:46 Source: patient Mode of arrival: Wheelchair History of Present Illness HPI Narrative: This is an 82-year-old woman with a history of type 2 diabetes, hypertension, hyperlipidemia, GERD, chronic back pain, seen and diagnosed with bronchitis 1 week ago presents to the ER with complaints of worsening illness. Patient states she is generally been feeling very weak for the last few days she states that her cough has not improved at all, she had severe ear pain on the left side last night which was slightly better this morning after Tylenol. She also states that she has a constant pressure sensation in her chest in the center slightly more on the left, that has been present for days she says it is worse with exertion? sometimes feels like an elephant sitting on my chest?. She s tates she feels like the she has a left-sided headache in her left forehead and left cheek. She states she is been under a great deal of stress recently as her is in the process of dying. She states her symptoms really did not improve with the prednisone medication she was prescribed less weak and ?usually this helps when I have bronchitis?. She is been using a albuterol inhaler as we ll with limited improvement in symptoms, she has not been using cough medicine she has been using some nasal spray. She also states that her low back pain has been acting up recently and she is noticed since she took the steroid medication that she feels like she has to push a little bit to get her urine stream started. She states her biggest concern is her tiredness and fatigue and the chest discomfort. Patient has a [employer] that visits them and is present daily to assist with her who is on hospice, but also provides care for the patient. Patient does not currently have a PCP. She denies any recent weight gain, fevers, chills although she does feel cold today or any other she has been eating and drinking normally with normal out go. She has had some recent weight loss but states that has been intentional. She has not been taking the benzonatate she was prescribed. Related Data Home Medications Medication Instructions Recorded Confirmed amlodipine 2.5 mg tablet 2.5 mg PO DAILY 12/03/17 12/18/21 simvastatin 20 mg tablet 20 mg PO DAILY 01/23/19 12/18/21 liraglutide 0.6 mg/0.1 mL (18 mg/3 1.2 mg SUBCUT DAILY 07/02/20 12/18/21 mL) subcutaneous pen injector (Victoza 2-Balbir) Respironics DreamStation 12/25/20 12/18/21 uopcqbxxocch-ydsnijys-vrytbm tablet 1 tab PO DAILY 01/17/21 12/18/21 omeprazole magnesium 20 mg 20 mg PO DAILY 01/17/21 12/18/21 tablet,delayed release (Prilosec OTC) Previous Rx's Medication Instructions Recorded alprazolam 0.25 mg tablet 0.125 mg PO TID PRN anxiety #30 01/17/21 tabs indomethacin 50 mg capsule 50 mg PO TID PRN gouty flare #60 04/09/21 caps clobetasol 0.05 % topical ointment 1 g topical DAILY lichen sclerosis 05/06/21 #30 grams conjugated estrogens 0.625 mg/gram 0.625 mg vaginal DAILY lichen 05/06/21 vaginal cream sclerosis #30 grams losartan 25 mg tablet 25 mg PO DAILY #90 tabs 06/12/21 hydrochlorothiazide 12.5 mg tablet 12.5 mg PO DAILY #90 tabs 06/24/21 doxycycline hyclate 100 mg capsule 100 mg PO BID #20 caps 03/19/22 doxycycline hyclate 100 mg tablet 100 mg PO BID #20 tabs 03/19/22 cephalexin 500 mg capsule 500 mg PO TID #30 caps 03/21/22 famotidine 20 mg tablet (Pepcid AC) 20 mg PO BID #20 tabs 03/21/22 mupirocin 2 % topical ointment 1 applic topical TID #22 grams 03/21/22 benzonatate 100 mg capsule 100 mg PO TID PRN cough #20 caps 08/27/22 methylprednisolone 4 mg tablets in See Rx Instructions PO .COMPLEX 08/27/22 a dose pack (Medrol (Balbir)) #21 ea amoxicillin 500 mg-potassium 1 tab PO Q8H PNA, bacterial 09/02/22 clavulanate 125 mg tablet sinusitis, otitis media 10 days (Augmentin) #30 tabs benzonatate 100 mg capsule 100 mg PO TID PRN cough #21 caps 09/02/22 Allergies Allergy/AdvReac Type Severity Reaction Status Date / Time Opioids - Morphine Analogues Allergy Verified 08/27/22 19:06 Review of Systems <Mikayla Ayers PA-C - Last Filed: 09/02/22 17:39> Review of Systems Narrative: See HPI Patient History <Mikayla Ayers PA-C - Last Filed: 09/02/22 17:39> Medical History Bunion, left foot Cataracts, bilateral Chicken pox Chronic back pain Diabetes mellitus type 2, noninsulin dependent FHx: breast cancer in first degree relative Generalized anxiety disorder GERD (gastroesophageal reflux disease) Gout H/O vaginal delivery History of esophageal stricture History of renal insufficiency HTN (hypertension) Lichen sclerosus Measles Mixed hyperlipidemia Mumps Obstructive sleep apnea Restless leg syndrome Rosacea Vertigo Vulvar lesion Surgical History Anesthesia History of lumbar spinal fusion History of total abdominal hysterectomy S/P appendectomy Status post total hip replacement, bilateral Family History Mother Breast cancer History of heart disease Sister Breast cancer Family/Other Breast cancer Father History of heart disease Social History marital status: household members: spouse (with dementia) lives independently: Yes caregiver/support person: No education level: master's degree (clinical psychologist, retired) Smoking Status: Never smoker alcohol intake: never Smoking Status: Never smoker alcohol intake frequency: 0-2 drinks per day Substance Use Type: does not use Exam <Mikayla Ayers PA-C - Last Filed: 09/02/22 17:39> Narrative Exam Narrative: GENERAL: 82 year old patient appears stated age. Well-developed patient, in mild distress. HEAD: Atraumatic. Normocephalic. EYES: Pupils equal round and reactive. Extraocular motions intact. No scleral icterus. No injection or drainage. ENT: Nose without bleeding, purulent drainage. Throat without erythema, tonsillar hypertrophy or exudate. Airway patent. Bilateral ear canals normal in appearance, the right TM is pearly palmer with cone of light visible the left TM is erythematous, injected with purulent appearing material behind it. Patient has tenderness palpation or percussion of the left frontal and left maxillary sinus. NECK: Trachea midline. Non tender CARDIOVASCULAR: Regular rate and rhythm without murmurs, gallops, or rubs. RESPIRATORY: There is expiratory squeaking bilaterally more prominent on the right in the upper green anteriorly. Otherwise Clear to auscultation. Breath sounds equal bilaterally. No wheezes, rales, or rhonchi. GASTROINTESTINAL: Abdomen soft, non-tender, nondistended. EXTREMITIES: No edema or joint tenderness. Equal bilateral pedal pulses. BACK: Nontender without deformity or crepitance. No flank tenderness. NEURO: AOx3. Patient has mild generalized weakness, difficulty holding herself up in bed for longer than a few minutes for respiratory exam. SKIN: No rash or erythema of visible areas Initial Vital Signs Initial Vital Signs: Vital Signs Temperature 98.3 F 09/02/22 11:15 Pulse Rate 75 09/02/22 11:15 Respiratory Rate 18 09/02/22 11:15 Blood Pressure 135/65 09/02/22 11:15 Pulse Oximetry 96 09/02/22 11:15 Oxygen Delivery Method Room Air 09/02/22 11:15 <Munira Ty DO - Last Filed: 09/02/22 19:35> Initial Vital Signs Initial Vital Signs: Vital Signs Temperature 98.3 F 09/02/22 11:15 Pulse Rate 75 09/02/22 11:15 Respiratory Rate 18 09/02/22 11:15 Blood Pressure 135/65 09/02/22 11:15 Pulse Oximetry 96 09/02/22 11:15 Oxygen Delivery Method Room Air 09/02/22 11:15 Scores <Mikayla Ayers PA-C - Last Filed: 09/02/22 17:39> CURB-65 Confusion: No BUN >19mg/dL (>7mmol/L): Yes () Respiratory rate greater or equal to 30: No SBP <90mmHg or DBP less or equal to 60mmHg: No Age 65 or Older: Yes CURB-65 Total: 2 Score 0-1 Outpatient care, Score 2 Inpt vs. Obs, Score 3 or over Inpt admit with ICU for score of 4-5 HEART Score Heart Score history: Slightly Suspicious Heart Score EKG: Normal Heart Score Age: > or = 65 years old Heart Score risk factors: 1-2 risk factors Heart Score troponin: < or = to normal limit Heart Score Total: 3 <Munira Ty DO - Last Filed: 09/02/22 19:35> CURB-65 CURB-65 Total: 2 HEART Score Heart Score Total: 3 Course <Mikayla Ayers PA-C - Last Filed: 09/02/22 17:39> Course Course Narrative: Did discuss with patient with attending physician Dr. Ty, pt does have evidence of a sinus infection and left ear infection, however given x-ray findings concerning for possible infectious process, as well as her history of endorsing generalized weakness and persistent chest pain for multiple days due pursue cardiac workup for further evaluation. 1303 Discussed this patient again with Dr. Ty, patient does have a [place] [id number], I suspect this may largely be due to the fact that she just finished a course of steroid medication however given her presumed pneumonia, we will pursue further workup including cultures and lactate. 1406 Orders Ordered: ED Orders 09/02/22 11:36 Chest [XR chest 2V] Stat 09/02/22 11:45 Respiratory Panel (Film Array) Stat 09/02/22 12:59 EKG-12 Lead Stat 09/02/22 13:11 Urine Culture Stat Urine Microscopic Stat 09/02/22 13:43 Complete Blood Count AUTO DIFF Stat Comprehensive Metabolic Panel Stat Lipase Stat NT-proBNP (BNP-Adult 18+) Stat Procalcitonin Stat Troponin & CK Cardiac Panel Stat 09/02/22 13:47 Lactate (Lactic Acid) Stat 09/02/22 14:38 Blood Culture Stat Discontinued Medications Sodium Chloride (Normal Saline 0.9%) 1,000 mls @ 150 mls/hr IV CONT GUILLERMINA Last Infusion: 09/02/22 15:40 Dose: 0 mls/hr Documented By: Admin: 09/02/22 15:03 Dose: 150 mls/hr Documented By: BECCA Vital Signs Vital signs: Vital Signs - 8 hr 09/02/22 11:39 09/02/22 12:00 09/02/22 12:00 Pulse Rate 78 75 Respiratory Rate Blood Pressure 135/86 Pulse Oximetry 97 98 Oxygen Delivery Method 09/02/22 12:30 09/02/22 12:30 09/02/22 13:00 Pulse Rate 72 Respiratory Rate Blood Pressure 138/79 156/67 H Pulse Oximetry 96 Oxygen Delivery Method 09/02/22 13:00 09/02/22 13:56 09/02/22 13:57 Pulse Rate 71 73 Respiratory Rate Blood Pressure 155/75 H Pulse Oximetry 98 98 Oxygen Delivery Method Room Air 09/02/22 13:57 09/02/22 14:00 09/02/22 14:00 Pulse Rate 73 75 Respiratory Rate Blood Pressure 136/81 Pulse Oximetry 98 98 Oxygen Delivery Method 09/02/22 14:30 09/02/22 14:30 09/02/22 14:39 Pulse Rate 73 Respiratory Rate Blood Pressure 143/67 H 157/67 H Pulse Oximetry 98 Oxygen Delivery Method 09/02/22 14:39 09/02/22 15:00 09/02/22 15:00 Pulse Rate 77 76 Respiratory Rate 22 Blood Pressure 130/62 Pulse Oximetry 94 99 Oxygen Delivery Method Room Air 09/02/22 15:30 09/02/22 15:31 09/02/22 15:31 Pulse Rate 76 77 Respiratory Rate 19 21 Blood Pressure 147/67 H Pulse Oximetry 98 97 Oxygen Delivery Method Room Air 09/02/22 16:00 09/02/22 16:00 09/02/22 16:16 Pulse Rate 78 77 Respiratory Rate 20 Blood Pressure 150/64 H Pulse Oximetry 96 98 Oxygen Delivery Method Room Air Room Air 09/02/22 16:16 Pulse Rate Respiratory Rate Blood Pressure 144/65 H Pulse Oximetry Oxygen Delivery Method <Munira Ty, - Last Filed: 09/02/22 19:35> Orders Ordered: ED Orders 09/02/22 11:36 Chest [XR chest 2V] Stat 09/02/22 11:45 Respiratory Panel (Film Array) Stat 09/02/22 12:59 EKG-12 Lead Stat 09/02/22 13:11 Urine Culture Stat Urine Microscopic Stat 09/02/22 13:43 Complete Blood Count AUTO DIFF Stat Comprehensive Metabolic Panel Stat Lipase Stat NT-proBNP (BNP-Adult 18+) Stat Procalcitonin Stat Troponin & CK Cardiac Panel Stat 09/02/22 13:47 Lactate (Lactic Acid) Stat 09/02/22 14:38 Blood Culture Stat Discontinued Medications Sodium Chloride (Normal Saline 0.9%) 1,000 mls @ 150 mls/hr IV CONT GUILLERMINA Last Infusion: 09/02/22 15:40 Dose: 0 mls/hr Documented By: Admin: 09/02/22 15:03 Dose: 150 mls/hr Documented By: BECCA Vital Signs Vital signs: Vital Signs - 8 hr 09/02/22 11:39 09/02/22 12:00 09/02/22 12:00 Pulse Rate 78 75 Respiratory Rate Blood Pressure 135/86 Pulse Oximetry 97 98 Oxygen Delivery Method 09/02/22 12:30 09/02/22 12:30 09/02/22 13:00 Pulse Rate 72 Respiratory Rate Blood Pressure 138/79 156/67 H Pulse Oximetry 96 Oxygen Delivery Method 09/02/22 13:00 09/02/22 13:56 09/02/22 13:57 Pulse Rate 71 73 Respiratory Rate Blood Pressure 155/75 H Pulse Oximetry 98 98 Oxygen Delivery Method Room Air 09/02/22 13:57 09/02/22 14:00 09/02/22 14:00 Pulse Rate 73 75 Respiratory Rate Blood Pressure 136/81 Pulse Oximetry 98 98 Oxygen Delivery Method 09/02/22 14:30 09/02/22 14:30 09/02/22 14:39 Pulse Rate 73 Respiratory Rate Blood Pressure 143/67 H 157/67 H Pulse Oximetry 98 Oxygen Delivery Method 09/02/22 14:39 09/02/22 15:00 09/02/22 15:00 Pulse Rate 77 76 Respiratory Rate 22 Blood Pressure 130/62 Pulse Oximetry 94 99 Oxygen Delivery Method Room Air 09/02/22 15:30 09/02/22 15:31 09/02/22 15:31 Pulse Rate 76 77 Respiratory Rate 19 21 Blood Pressure 147/67 H Pulse Oximetry 98 97 Oxygen Delivery Method Room Air 09/02/22 16:00 09/02/22 16:00 09/02/22 16:16 Pulse Rate 78 77 Respiratory Rate 20 Blood Pressure 150/64 H Pulse Oximetry 96 98 Oxygen Delivery Method Room Air Room Air 09/02/22 16:16 Pulse Rate Respiratory Rate Blood Pressure 144/65 H Pulse Oximetry Oxygen Delivery Method MDM - URI/Sore Throat <Mikayla Ayers PA-C - Last Filed: 09/02/22 17:39> Differential Diagnosis Differential diagnosis: Likely upper respiratory infection, viral infection, bronchitis and other (Pneumonia, otitis media, sinus infection) Medical Records Attestation: I reviewed the patient's medical records. Lab Data Attestation: I reviewed the patient's lab results. 09/02/22 13:43 09/02/22 13:43 Labs: Lab Results 09/02/22 09/02/22 09/02/22 Range/Units 11:45 13:11 13:43 WBC 17.9 H (4.5-11.0) X10^3/uL RBC 4.18 (4.0-5.2) X10^6/uL Hgb 13.0 (12.0-16.0) g/dL Hct 38.5 (36-46) % MCV 92.1 (80-100) fL MCH 31.1 (26-34) PG MCHC 33.7 (30-36) % RDW 12.9 (11.6-14.8) % Plt Count 255 (150-400) X10^3/uL Neut % (Auto) 83.3 H (50-75) % Lymph % (Auto) 8.7 L (25-40) % [place] % (Auto) 7.1 (3-14) % Eos % (Auto) 0.7 L (2-4) % Baso % (Auto) 0.2 (0-2) % Neut # (Auto) 71804 H (7026-0851) /uL Lymph # (Auto) 1600 (5755-8467) /uL [place] # (Auto) 1300 H (0-900) /uL Eos # (Auto) 100 (0-450) /uL Baso # (Auto) 0 (0-100) /uL Sodium (137-145) mmol/L Potassium (3.4-5.1) mmol/L Chloride (98-107) mmol/L Carbon Dioxide (22-32) mmol/L BUN (7-17) mg/dL Creatinine (0.52-1.04) mg/dL Estimated GFR (>60) mL/min BUN/Creatinine Ratio (6-22) Glucose (80-110) mg/dL Lactate (0.7-2.1) mmol/L Calcium (8.4-10.2) mg/dL Total Bilirubin (0.2-1.3) mg/dL AST (14-36) IU/L ALT (<35) IU/L Alkaline Phosphatase (38-126) U/L Total Creatine Kinase (30-135) U/L CK-MB (CK-2) CK-MB (CK-2) Rel Index Troponin I (0.01-0.034) ng/mL NT-Pro-B Natriuret Pep (<450) pg/mL Total Protein (6.3-8.2) g/dL Albumin (3.5-5.0) g/dL Globulin (1.7-4.1) g/dL Albumin/Globulin Ratio (1.0-2.8) Lipase (23-300) U/L Procalcitonin (<0.5) ng/mL Urine RBC 0-1/hpf (0-5/HPF) Urine WBC 0-1/hpf (0-5/HPF) Ur Squamous Epith Cells 0-1 /hpf (0-5/HPF) Urine Bacteria None seen (None) Chlamy pneumoniae PCR Not detected (Not Detect) Adenovirus (PCR) Not detected (Not Detect) B. pertussis DNA (PCR) Not detected (Not Detecte) B.parapertussis DNA PCR Not detected (Not Detecte) Coronavirus OC43 (PCR) Not detected (Not Detect) Coronavirus HKU1 (PCR) Not detected (Not Detect) Coronavirus 229E (PCR) Not detected (Not Detect) SARS-CoV-2 (PCR) Not detected (Not Detecte) Coronavirus NL63 (PCR) Not detected (Not Detect) Human Metapneumovir PCR Not detected (Not Detect) Influenza Type A (PCR) Not detected (Not Detect) Influenza Type B (PCR) Not detected (Not Detect) M. pneumoniae (PCR) Not detected (Not Detect) Parainfluenza 1 (PCR) Not detected (Not Detect) Parainfluenza 2 (PCR) Not detected (Not Detect) Parainfluenza 3 (PCR) Not detected (Not Detect) Parainfluenza 4 (PCR) Not detected (Not Detect) RSV (PCR) Not detected (Not Detect) Entero/Rhino (PCR) Not detected (Not Detect) 09/02/22 09/02/22 09/02/22 Range/Units 13:43 13:43 13:47 WBC (4.5-11.0) X10^3/uL RBC (4.0-5.2) X10^6/uL Hgb (12.0-16.0) g/dL Hct (36-46) % MCV (80-100) fL MCH (26-34) PG MCHC (30-36) % RDW (11.6-14.8) % Plt Count (150-400) X10^3/uL Neut % (Auto) (50-75) % Lymph % (Auto) (25-40) % [place] % (Auto) (3-14) % Eos % (Auto) (2-4) % Baso % (Auto) (0-2) % Neut # (Auto) (0664-7465) /uL Lymph # (Auto) (7496-1524) /uL [place] # (Auto) (0-900) /uL Eos # (Auto) (0-450) /uL Baso # (Auto) (0-100) /uL Sodium 137 (137-145) mmol/L Potassium 4.7 (3.4-5.1) mmol/L Chloride 104 (98-107) mmol/L Carbon Dioxide 23 (22-32) mmol/L BUN 23 H (7-17) mg/dL Creatinine 0.93 (0.52-1.04) mg/dL Estimated GFR > 60 (>60) mL/min BUN/Creatinine Ratio 24.7 H (6-22) Glucose 90 (80-110) mg/dL Lactate 1.3 (0.7-2.1) mmol/L Calcium 9.1 (8.4-10.2) mg/dL Total Bilirubin 0.9 (0.2-1.3) mg/dL AST 32 (14-36) IU/L ALT 22 (<35) IU/L Alkaline Phosphatase 73 (38-126) U/L Total Creatine Kinase 97 (30-135) U/L CK-MB (CK-2) TNP CK-MB (CK-2) Rel Index TNP Troponin I < 0.012 (0.01-0.034) ng/mL NT-Pro-B Natriuret Pep 119 (<450) pg/mL Total Protein 7.7 (6.3-8.2) g/dL Albumin 4.4 (3.5-5.0) g/dL Globulin 3.3 (1.7-4.1) g/dL Albumin/Globulin Ratio 1.3 (1.0-2.8) Lipase 165 (23-300) U/L Procalcitonin 0.08 (<0.5) ng/mL Urine RBC (0-5/HPF) Urine WBC (0-5/HPF) Ur Squamous Epith Cells (0-5/HPF) Urine Bacteria (None) Chlamy pneumoniae PCR (Not Detect) Adenovirus (PCR) (Not Detect) B. pertussis DNA (PCR) (Not Detecte) B.parapertussis DNA PCR (Not Detecte) Coronavirus OC43 (PCR) (Not Detect) Coronavirus HKU1 (PCR) (Not Detect) Coronavirus 229E (PCR) (Not Detect) SARS-CoV-2 (PCR) (Not Detecte) Coronavirus NL63 (PCR) (Not Detect) Human Metapneumovir PCR (Not Detect) Influenza Type A (PCR) (Not Detect) Influenza Type B (PCR) (Not Detect) M. pneumoniae (PCR) (Not Detect) Parainfluenza 1 (PCR) (Not Detect) Parainfluenza 2 (PCR) (Not Detect) Parainfluenza 3 (PCR) (Not Detect) Parainfluenza 4 (PCR) (Not Detect) RSV (PCR) (Not Detect) Entero/Rhino (PCR) (Not Detect) Urine Dip Bedside Urine Glucose Negative Bedside Urine Bilirubin - Negative Bedside Urine Ketone - Negative Urine Specific [place] 1.015 Bedside Urine pH 6.5 Bedside Urine Protein - Negative Bedside Urine Urobilinogen - Negative Bedside Urine Nitrite - Negative Bedside Urine Leukocytes +/- 15 Esterase Imaging Data Chest x-ray: Radiologist's Impression: [address] [address] XRay Report Signed Patient: Krystin Calderón MR#: [id number] : 1940 Acct:[id number] Age/Sex: 82 / F Date of Service: 09/02/22 Loc: ED Accession Number: [id number] ?? Procedure: XR chest 2V Ordering Provider: Munira Ty D.O. PROCEDURE:? XR CHEST 2V ? INDICATIONS:? cough ? TECHNIQUE:? 2 views of the chest were acquired.? ? COMPARISON:? [facility], CR, XR CHEST 1V, 08/27/2022, 19:33.? [facility], CR, XR CHEST 1V, 11/28/2020, 16:44. ? FINDINGS:? ? Surgical changes and devices:? None.? ? Lungs and pleura:? Retrocardiac opacity. ? Mediastinum:? Mediastinal contours are normal.? Heart size is normal.? ? Bones and chest wall:? No suspicious bony abnormalities.? Soft tissues appear unremarkable.? ? IMPRESSION:? Retrocardiac opacity, either atelectasis or infection. ? ? Dictated by: Dinesh Fernández M.D. on 09/02/2022 at 11:44 ? ? Approved by: Dinesh Fernández M.D. on 09/02/2022 at 11:44?? ECG Data Attestation: I personally reviewed and interpreted this ECG as follows: Interpretation: Normal sinus rhythm, heart rate 70 QTC 410, no ectopy, no ST elevation or depression noted. MDM Narrative Medical decision making narrative: This is an 82-year-old woman who presents with concern for persistent upper respiratory symptoms for the past week after she was treated for bronchitis with steroid medication. Patient has not been taking the prescribed cough medicine. Presents today with concern for generalized weakness and chest discomfort and persistent cough. Her chest x-ray is concerning for retrocardiac opacity, possibly consistent with infection. Her exam was notable for a left otitis media and is consistent with a sinus infection affecting the maxillary frontal sinuses on the left. Her labs do returned showing a leukocytosis to greater than 17, additional workup for sepsis rule out is pursued including blood cultures x2, lactate and procalcitonin. Lactate and procalcitonin are unremarkable, I suspect that patient's elevated white count is largely due to her recent steroid medication use. She is otherwise nontoxic appearing and has unremarkable vitals, will treat for pneumonia, sinus infection and ear infection with Augmentin which should cover all. Patient also had cardiac workup today including labs and EKG which were also unremarkable. Given patient has had persistent symptoms for multiple days a repeat troponin is not obtained. Patient's heart score is 3, curb 65 score is 2. Patient's viral testing today was negative and urine did not suggest infection. Patient is advised to follow up closely with primary care provider, monitor for new or worsening symptoms, return precautions and ED precautions provided, all questions answered. <Munira Ty, DO - Last Filed: 09/02/22 19:35> Lab Data Labs: Lab Results 09/02/22 09/02/22 09/02/22 Range/Units 11:45 13:11 13:43 WBC 17.9 H (4.5-11.0) X10^3/uL RBC 4.18 (4.0-5.2) X10^6/uL Hgb 13.0 (12.0-16.0) g/dL Hct 38.5 (36-46) % MCV 92.1 (80-100) fL MCH 31.1 (26-34) PG MCHC 33.7 (30-36) % RDW 12.9 (11.6-14.8) % Plt Count 255 (150-400) X10^3/uL Neut % (Auto) 83.3 H (50-75) % Lymph % (Auto) 8.7 L (25-40) % [place] % (Auto) 7.1 (3-14) % Eos % (Auto) 0.7 L (2-4) % Baso % (Auto) 0.2 (0-2) % Neut # (Auto) 95452 H (5727-6534) /uL Lymph # (Auto) 1600 (8145-8056) /uL [place] # (Auto) 1300 H (0-900) /uL Eos # (Auto) 100 (0-450) /uL Baso # (Auto) 0 (0-100) /uL Sodium (137-145) mmol/L Potassium (3.4-5.1) mmol/L Chloride (98-107) mmol/L Carbon Dioxide (22-32) mmol/L BUN (7-17) mg/dL Creatinine (0.52-1.04) mg/dL Estimated GFR (>60) mL/min BUN/Creatinine Ratio (6-22) Glucose (80-110) mg/dL Lactate (0.7-2.1) mmol/L Calcium (8.4-10.2) mg/dL Total Bilirubin (0.2-1.3) mg/dL AST (14-36) IU/L ALT (<35) IU/L Alkaline Phosphatase (38-126) U/L Total Creatine Kinase (30-135) U/L CK-MB (CK-2) CK-MB (CK-2) Rel Index Troponin I (0.01-0.034) ng/mL NT-Pro-B Natriuret Pep (<450) pg/mL Total Protein (6.3-8.2) g/dL Albumin (3.5-5.0) g/dL Globulin (1.7-4.1) g/dL Albumin/Globulin Ratio (1.0-2.8) Lipase (23-300) U/L Procalcitonin (<0.5) ng/mL Urine RBC 0-1/hpf (0-5/HPF) Urine WBC 0-1/hpf (0-5/HPF) Ur Squamous Epith Cells 0-1 /hpf (0-5/HPF) Urine Bacteria None seen (None) Chlamy pneumoniae PCR Not detected (Not Detect) Adenovirus (PCR) Not detected (Not Detect) B. pertussis DNA (PCR) Not detected (Not Detecte) B.parapertussis DNA PCR Not detected (Not Detecte) Coronavirus OC43 (PCR) Not detected (Not Detect) Coronavirus HKU1 (PCR) Not detected (Not Detect) Coronavirus 229E (PCR) Not detected (Not Detect) SARS-CoV-2 (PCR) Not detected (Not Detecte) Coronavirus NL63 (PCR) Not detected (Not Detect) Human Metapneumovir PCR Not detected (Not Detect) Influenza Type A (PCR) Not detected (Not Detect) Influenza Type B (PCR) Not detected (Not Detect) M. pneumoniae (PCR) Not detected (Not Detect) Parainfluenza 1 (PCR) Not detected (Not Detect) Parainfluenza 2 (PCR) Not detected (Not Detect) Parainfluenza 3 (PCR) Not detected (Not Detect) Parainfluenza 4 (PCR) Not detected (Not Detect) RSV (PCR) Not detected (Not Detect) Entero/Rhino (PCR) Not detected (Not Detect) 09/02/22 09/02/22 09/02/22 Range/Units 13:43 13:43 13:47 WBC (4.5-11.0) X10^3/uL RBC (4.0-5.2) X10^6/uL Hgb (12.0-16.0) g/dL Hct (36-46) % MCV (80-100) fL MCH (26-34) PG MCHC (30-36) % RDW (11.6-14.8) % Plt Count (150-400) X10^3/uL Neut % (Auto) (50-75) % Lymph % (Auto) (25-40) % [place] % (Auto) (3-14) % Eos % (Auto) (2-4) % Baso % (Auto) (0-2) % Neut # (Auto) (5358-8193) /uL Lymph # (Auto) (2228-0512) /uL [place] # (Auto) (0-900) /uL Eos # (Auto) (0-450) /uL Baso # (Auto) (0-100) /uL Sodium 137 (137-145) mmol/L Potassium 4.7 (3.4-5.1) mmol/L Chloride 104 (98-107) mmol/L Carbon Dioxide 23 (22-32) mmol/L BUN 23 H (7-17) mg/dL Creatinine 0.93 (0.52-1.04) mg/dL Estimated GFR > 60 (>60) mL/min BUN/Creatinine Ratio 24.7 H (6-22) Glucose 90 (80-110) mg/dL Lactate 1.3 (0.7-2.1) mmol/L Calcium 9.1 (8.4-10.2) mg/dL Total Bilirubin 0.9 (0.2-1.3) mg/dL AST 32 (14-36) IU/L ALT 22 (<35) IU/L Alkaline Phosphatase 73 (38-126) U/L Total Creatine Kinase 97 (30-135) U/L CK-MB (CK-2) TNP CK-MB (CK-2) Rel Index TNP Troponin I < 0.012 (0.01-0.034) ng/mL NT-Pro-B Natriuret Pep 119 (<450) pg/mL Total Protein 7.7 (6.3-8.2) g/dL Albumin 4.4 (3.5-5.0) g/dL Globulin 3.3 (1.7-4.1) g/dL Albumin/Globulin Ratio 1.3 (1.0-2.8) Lipase 165 (23-300) U/L Procalcitonin 0.08 (<0.5) ng/mL Urine RBC (0-5/HPF) Urine WBC (0-5/HPF) Ur Squamous Epith Cells (0-5/HPF) Urine Bacteria (None) Chlamy pneumoniae PCR (Not Detect) Adenovirus (PCR) (Not Detect) B. pertussis DNA (PCR) (Not Detecte) B.parapertussis DNA PCR (Not Detecte) Coronavirus OC43 (PCR) (Not Detect) Coronavirus HKU1 (PCR) (Not Detect) Coronavirus 229E (PCR) (Not Detect) SARS-CoV-2 (PCR) (Not Detecte) Coronavirus NL63 (PCR) (Not Detect) Human Metapneumovir PCR (Not Detect) Influenza Type A (PCR) (Not Detect) Influenza Type B (PCR) (Not Detect) M. pneumoniae (PCR) (Not Detect) Parainfluenza 1 (PCR) (Not Detect) Parainfluenza 2 (PCR) (Not Detect) Parainfluenza 3 (PCR) (Not Detect) Parainfluenza 4 (PCR) (Not Detect) RSV (PCR) (Not Detect) Entero/Rhino (PCR) (Not Detect) Urine Dip Bedside Urine Glucose Negative Bedside Urine Bilirubin - Negative Bedside Urine Ketone - Negative Urine Specific Morley 1.015 Bedside Urine pH 6.5 Bedside Urine Protein - Negative Bedside Urine Urobilinogen - Negative Bedside Urine Nitrite - Negative Bedside Urine Leukocytes +/- 15 Esterase Discharge Plan Departure Patient Disposition: Home Clinical Impression: Pneumonia, Bacterial sinusitis, Acute left otitis media Instructions: DI for Pneumonia -- Adult Activity Restrictions/Additional Instructions: *You have been diagnosed with pneumonia, bacterial sinus infection, ear infection *What to do: *Please continue to take your regular medications as directed. [2] New medication prescriptions sent to your pharmacy: [Augmentin (antibiotic) and benzonatate (cough medicine)] [ ] New medication written as a paper prescription [ ] No new medications given *Please follow up with your primary care provider in 2-3 days, call for an appointment. Let them know you were seen in the Emergency Department and that we ask that you be seen in follow up. We will electronically transmit a record of today's note if your PCP is in our system. Your chest x-ray today was concerning for a pneumonia, on your exam today also had symptoms concerning for sinus infection and left middle ear infection. We did fairly extensive evaluation today including labs to evaluate the extent of your infection and things were looking okay, you do had an increased white count today but this is very common when someone take steroid medication. Your other labs looked okay and did not suggest a severe infection--we also checked on your cardiac labs and did an EKG, these also looked fine today. It is really important that you monitor carefully for worsening symptoms or if you feel like you are not improving at all with antibiotics and make sure that you get rechecked if this is the case. Please start the antibiotics today as prescribed and take him for the full course, you are being prescribed 1 antibiotic but it should be effective to treat everything. I also prescribed some cough medicine for you. Please do your best to get some rest. *If you do not have a primary care provider please contact the [facility] Resource line at [phone]. They will ask some questions about your medical h istory and help get you set up with a doctor in the community. *Return to Emergency Department if you should have any new, worsening or concerning symptoms, such as [fever greater than 101 F, shaking chills, worsening pain, persistent vomiting or other bothersome symptoms] Prescriptions: New amoxicillin-pot clavulanate [Augmentin] 500-125 mg tablet 1 tab PO Q8H 10 Days Qty: 30 0RF benzonatate 100 mg capsule 100 mg PO TID PRN (Reason: cough) Qty: 21 1RF No Action amlodipine 2.5 mg tablet 2.5 mg PO DAILY indomethacin 50 mg capsule 50 mg PO TID PRN (Reason: gouty flare) Qty: 60 0RF Rx Instructions: administer with food or milk losartan 25 mg tablet 25 mg PO DAILY Qty: 90 1RF hydrochlorothiazide 12.5 mg tablet 12.5 mg PO DAILY Qty: 90 3RF hpszinuxvydo-ppugdwpl-wlrixf Tablet 1 tab PO DAILY omeprazole magnesium [Prilosec OTC] 20 mg tablet,delayed release (DR/EC) 20 mg PO DAILY alprazolam 0.25 mg tablet 0.125 mg PO TID PRN (Reason: anxiety) Qty: 30 0RF clobetasol 0.05 % ointment 1 g topical DAILY Qty: 30 2RF Rx Instructions: Apply finger tip worth to vulva and vagina once daily for 14 days, then 1-2 times weekly. conjugated estrogens 0.625 mg/gram cream 0.625 mg vaginal DAILY Qty: 30 2RF Rx Instructions: Apply to vulva and vagina once daily for 14 days, then 1-2x weekly. Victoza 2-Balbir 0.6 mg/0.1 mL (18 mg/3 mL) pen injector 1.2 mg SUBCUT DAILY doxycycline hyclate 100 mg capsule 100 mg PO BID Qty: 20 0RF doxycycline hyclate 100 mg tablet 100 mg PO BID Qty: 20 0RF cephalexin 500 mg capsule 500 mg PO TID Qty: 30 0RF mupirocin 2 % ointment 1 applic topical TID Qty: 22 1RF Rx Instructions: apply thin film to right toe famotidine [Pepcid AC] 20 mg tablet 20 mg PO BID Qty: 20 0RF Rx Instructions: for stomach pains, nausea simvastatin 20 mg tablet 20 mg PO DAILY benzonatate 100 mg capsule 100 mg PO TID PRN (Reason: cough) Qty: 20 0RF methylprednisolone [Medrol (Balbir)] 4 mg tablets,dose pack See Rx Instructions .ROUTE .COMPLEX Qty: 21 0RF Rx Instructions: orally per package directions (DME) Respironics DreamStation See Rx Instructions .Route .MEDSUPPLY Rx Instructions: CPAP DreamStation Min Pressure: 6 Max Pressure: 16 Referrals: Miscellaneous,Doctor, MD [Primary Care Provider] - Stand Alone Forms: Patient Portal/API <Munira Ty DO - Last Filed: 09/02/22 19:35> Cosign ED Attending Ang Attestation: I was immediately available in the department for consultation. Documentation has been reviewed. Case was discussed.
[2022-09-02 13:55] LABS: Add Manual Diff / Slide Review NO; Basophils Absolute Auto 0 /uL (0-100); Basophils Percent Auto 0.2 % (0-2); Eosinophils Absolute Auto 100 /uL (0-450); Eosinophils Percent Auto 0.7 % (2-4); Hematocrit 38.5 % (36-46); Lymphocytes Absolute Auto 1600 /uL (1100-4500); Lymphocytes Percent Auto 8.7 % (25-40); Mean Corpuscular HGB Conc 33.7 % (30-36); Mean Corpuscular Hemoglobin 31.1 PG (26-34); Mean Corpuscular Volume 92.1 fL (80-100); Monocytes Absolute Auto 1300 /uL (0-900); Monocytes Percent Auto 7.1 % (3-14); Neutrophils Absolute Auto 14900 /uL (1500-7000); Neutrophils Percent Auto 83.3 % (50-75); Platelet Count 255 X10^3/uL (150-400); Red Blood Cell Count 4.18 X10^6/uL (4.0-5.2); Red Cell Distribution Width 12.9 % (11.6-14.8); White Blood Cell Count 17.9 X10^3/uL (4.5-11.0)
[2022-09-02 14:00] LABS: Bacteria Urine None Seen; RBC Urine 0-1/HPF (0-5/HPF); Squamous Epithelial Cell Urine 0-1 /HPF (0-5/HPF); WBC Urine 0-1/HPF (0-5/HPF)
[2022-09-02 14:02] LABS: Alanine Aminotransferase 22 IU/L (<35); Albumin 4.4 g/dL (3.5-5.0); Albumin Globulin Ratio 1.3 (1.0-2.8); Alkaline Phosphatase 73 U/L (38-126); Aspartate Aminotransferase 32 IU/L (14-36); BUN Creatinine Ratio 24.7 (6-22); Bilirubin Total 0.9 mg/dL (0.2-1.3); Blood Urea Nitrogen 23 mg/dL (7-17); Calcium 9.1 mg/dL (8.4-10.2); Carbon Dioxide 23 mmol/L (22-32); Chloride 104 mmol/L (98-107); Creatine Kinase 97 U/L (30-135); Estimated Glomerular Filt Rate > 60 mL/min (>60); Globulin 3.3 g/dL (1.7-4.1); Glucose 90 mg/dL (80-110); Lipase 165 U/L (23-300); Potassium 4.7 mmol/L (3.4-5.1); Sodium 137 mmol/L (137-145); Total Protein 7.7 g/dL (6.3-8.2)
[2022-09-02 14:03] LABS: HEMOLYSIS 149 (0-50)
[2022-09-02 14:11] LABS: NT-proBNP (BNP-Adult 18+) 119 pg/mL (<450)
[2022-09-02 14:13] LABS: Troponin I < 0.012 ng/mL (0.01-0.034)
[2022-09-02 14:18] LABS: Procalcitonin 0.08 ng/mL (<0.5)
[2022-09-02 14:21] LABS: Lactate (Lactic Acid) 1.3 mmol/L (0.7-2.1)
[2022-09-02] MEDS: SODIUM CHLORIDE 0.9% 1,000 ML 150 ML IV (15:03)
== END 2022-09-02 16:25 | disposition home or self-care (01) ==
PROVIDERS: Emergency Medicine; Emergency Provider Student in an Organized Health Care Education/Training Program
DX: J18.9 Pneumonia, unspecified organism (principal); H66.92 Otitis media, unspecified, left ear; J32.9 Chronic sinusitis, unspecified; Z20.822 Contact with and (suspected) exposure to COVID-19; R07.9 Chest pain, unspecified; I10 Essential (primary) hypertension
CPT/HCPCS: 36415; 71046; 80053; 81003; 81015; 82550; 83605; 83690; 83880; 84145; 84484; 85025; 87040; 87086; 87633; 93005; 93010; 99284

== ENCOUNTER → 2022-12-18 09:29 | Outpatient (CLI) | payer MEDICARE, SELFPAY ==
--- NOTE | 2022-12-18 | DI.US.S_ITS ---
PROCEDURE: US BREAST LT LIMITED COMPARISON: None. INDICATIONS: LEFT BREAST PAIN FINDINGS: IMPRESSION: Dictated by: Juan Parson M.D. on 12/18/2022 at 15:00 Approved by: Juan Parson M.D. on 12/18/2022 at 15:02
--- NOTE | 2022-12-18 | DI.MG.S_ITS ---
BILATERAL DIGITAL DIAGNOSTIC MAMMOGRAM 3D/2D: 12/18/2022 CLINICAL: Left breast pain. Due for Bilateral routine. Comparison is made to exams dated: 10/12/2018 mammogram - [facility], 07/02/2016 mammogram, and 07/02/2015 mammogram - [facility]. Both breasts are heterogeneously dense, which may obscure small masses (category c / 51-75% glandular tissue). Both breasts have post-operative findings. There are benign appearing calcifications in both breasts that are not significantly changed. No significant masses, calcifications, or other findings are seen in either breast. IMPRESSION: INCOMPLETE: NEEDS ADDITIONAL IMAGING EVALUATION There is no abnormality seen in the left breast to correspond with the area of clinical concern and pain indicated by square marker, however, an ultrasound is recommended for further evaluation and is scheduled to immediately follow this examination. Based on the Tyrer Cuzick model (a risk assessment model) the patient's lifetime risk is 3.9% and her 10 year risk is 0.0%. According to the ACR, ACS, and NCCN guidelines, an annual breast MRI exam along with mammogram is recommended if the patient's lifetime risk is 20% or greater. This exam was interpreted at Station ID: [id number]. NOTE: For mammograms, a report in lay terms will be sent to the patient. Approximately 15% of breast malignancies will not be visualized mammographically. In the management of a palpable breast mass, a negative mammogram must not discourage biopsy of a clinically suspicious lesion. Electronically Signed By: Juan Parson M.D. aty/:12/18/2022 11:13:53 ACR BI-RADS Category 0: Incomplete 3340F
--- NOTE | 2022-12-18 14:47 | DI.US.S_ITS ---
Patient Name: OLGA GARCIA date: 1940 Sex: F Attending Physician: Tatianna Indications: Date: 12/18/2022 11:14 At the request of: ANITHA RAMOS Procedure: US breast LT limited ULTRASOUND OF LEFT BREAST: 12/18/2022 CLINICAL: Occasional left breast pain. Comparison is made to exams dated: 12/18/2022 mammogram, 10/12/2018 mammogram - [facility], 07/02/2016 mammogram, 07/02/2015 mammogram, 06/26/2014 mammogram, and 12/22/2013 mammogram - [facility]. Color flow and real-time ultrasound of the left breast were performed. Chamorro scale images of the real-time examination were reviewed. No significant abnormalities were seen sonographically in the left breast. IMPRESSION: NEGATIVE There is no sonographic evidence of malignancy. There is no abnormality seen in the left breast to correspond with the area of clinical concern and pain indicated by square marker, however, recommend clinical follow up for persistent or worsening symptoms, or development of any clinically suspicious findings. A 1 year screening mammogram is recommended. Findings and recommendations were conveyed to the patient during today's evaluation. This exam was interpreted at Station ID: [id number]. Electronically Signed By: Juan Parson M.D. aty/:12/18/2022 11:14:59 Continued Report - Page 2 of 2 Patient Name: OLGA GARCIA date: 1940 Sex: F Attending Physician: Tatianna Indications: Date: 12/18/2022 11:14 At the request of: ANITHA RAMOS Procedure: US breast LT limited letter sent: Clinical Evaluation Ultrasound BI-RADS: 1 Negative
== END ==
PROVIDERS: PCP Physician Assistant; Referring Provider Physician Assistant; Visit Provider Physician Assistant
DX: R92.2 Inconclusive mammogram (principal); N64.4 Mastodynia
CPT/HCPCS: 76642; 77066; G0279

== ENCOUNTER 2022-12-28 18:01 | Emergency (ER) | payer MEDICARE, SELFPAY ==
[2022-12-28 18:06] VITALS: BP 118/79; PULSE 77; RESP 18; TEMP 36.8; O2SAT 98; BMI 27.3
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
[2022-12-28] MEDS: ACETAMINOPHEN 325 MG TABLET 975 MG PO (20:16)
[2022-12-28 21:36] VITALS: BP 141/65; PULSE 66; RESP 16; O2SAT 98
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
[2022-12-28] MEDS: HYDROMORPHONE 2 MG TABLET PO (23:48)
[2022-12-28] MEDS: HYDROMORPHONE 0.5 MG INJ IM (23:49)
[2022-12-28] MEDS: BACITRACIN OINT 0.9 GM PCKT 1 APPLIC TOP (23:50)
[2022-12-29 00:20] VITALS: BP 149/65; PULSE 68; RESP 18; O2SAT 98
== END 2022-12-29 00:08 | disposition home or self-care (01) ==
PROVIDERS: Emergency Provider Emergency Medicine; PCP Physician Assistant
DX: S91.331A Puncture wound without foreign body, right foot, initial encounter (principal); W22.8XXA Striking against or struck by other objects, initial encounter
CPT/HCPCS: 73630; 96372; 99283; 99284; J1170